=== PATIENT | female | born 1955 | race Caucasian/White ===

== ENCOUNTER → 2023-07-28 11:51 | Outpatient (REF) | payer OTHER, SELFPAY | LOC: WOUND 11:51 | PROVIDERS: ATTENDING PHYSICIAN Surgery | DX: L89.153 Pressure ulcer of sacral region, stage 3 (principal); I10 Essential (primary) hypertension; Z79.01 Long term (current) use of anticoagulants; I26.99 Other pulmonary embolism without acute cor pulmonale | CPT/HCPCS: 99204 ==

== ENCOUNTER → 2023-07-28 13:28 | Outpatient (REF) | payer OTHER, SELFPAY | LOC: RAD 13:28 | PROVIDERS: ATTENDING PHYSICIAN Surgery; FAMILY PHYSICIAN Family Medicine | DX: L89.153 Pressure ulcer of sacral region, stage 3 (principal) | CPT/HCPCS: 72190 ==

== ENCOUNTER 2023-08-01 01:33 | Inpatient (IN) | payer OTHER, SELFPAY ==
[2023-07-31 20:08] VITALS: BP 118/60
[2023-07-31 21:04] VITALS: BMI 15.3
--- NOTE | 2023-07-31 21:04 | ED.GENMED ---
History of Present Illness
General
Chief Complaint: Urinary Symptoms
Source: spouse
Exam Limitations: clinical condition
Time Seen by Provider: 07/31/23 20:56
Travel History
Have you had any contact with someone who has COVID-19?: No
Do you have any symptoms of coronavirus? Fever > 100 degrees, chills, cough, shortness of breath, sore throat, loss of taste or smell, muscle aches, or headache?: No
History of Present Illness
History of Present Illness:
See MDM
Past History
Past History
ED Past Medical History: CVA and Seizures
ED Past Surgical History: None
Social History
Tobacco: Non-smoker
Alcohol: None
Phy Exam
Physical Exam
Physical Exam:
See MDM
Course
Orders/Labs/Results
Orders:
Orders
07/31/23 21:03
0.9% Sodium Chloride 1000 ml [Nss] 1,000 ml IV BOLUS
Acetaminophen [Tylenol] 1,000 mg PO NOW STA
Cefepime HCl [Maxipime] 1,000 mg IV NOW STA
07/31/23 21:15
Sterile Water [Sterile Water For Injection] 10 ml .ROUTE .[facility]
07/31/23 21:21
Urinalysis Reflex To Culture Urgent
Date Specimen was Collected: 07/31/23
Time Specimen was Collected: 21:12
Urine Microscopic Reflex Cult Urgent
Urine Culture Urgent
ASH Source: U
Specimen Description:
Date Specimen was Collected: 07/31/23
Time Specimen was Collected: 21:12
07/31/23 21:33
Complete Blood Count/With Diff Urgent
Comprehensive Metabolic Panel Urgent
Lactic Acid Q4H
Comment: CANCEL 2nd LACTIC ACID IF 1st LACTIC ACID IS LESS THAN 2
Blood Culture Q30M
ASH Source: Blood/Venous
Specimen Description:
07/31/23 21:42
Blood Culture Q30M
ASH Source: Blood/Venous
Specimen Description:
07/31/23 21:53
CT Abd/pelvis W Iv Cont Urgent
Comment:
Reason For Exam: uti, abd pain, fever
Abnormal Lab Results
07/31/23 07/31/23
21:21 21:33
WBC 14.3 H 10^3/uL
(4.8-10.8)
RBC 2.65 L 10^6/uL
(4.20-5.40)
Hgb 7.5 L g/dL
(12.0-16.0)
Hct 21.9 L %
(37.0-47.0)
RDW 16.6 H %
(11.5-14.5)
Plt Count 496 H 10^3/uL
(130-400)
Abs Immat Gran (auto) 0.1 H 10^3/uL
(0-0.05)
Absolute Neuts (auto) 11.3 H 10^3/uL
(1.4-6.5)
Absolute Monos (auto) 0.9 H 10^3/uL
(0.1-0.6)
Neutrophils % 79.0 H %
(42.2-75.2)
Lymphocytes % 13.1 L %
(20.5-51.1)
Potassium 3.2 L mmol/L
(3.5-5.1)
Creatinine 0.4 L mg/dL
(0.6-1.0)
Calcium 7.9 L mg/dl
(8.4-10.2)
Total Protein 5.2 L g/dl
(6.3-8.2)
Albumin 2.1 L g/dl
(3.5-5.0)
Urine Ketones Trace A
(Negative)
Ur Occult Blood Reflex 4+ A
(Negative)
Urine Nitrite (Reflex) Positive A
(Negative)
Leukocyte Esterase Rfl 2+ A
(Negative)
Urine WBC (Reflex) >100 A /HPF
(0-5)
Urine Albumin (Reflex) 2+ A
(Neg - Trace)
07/31/23 21:33
07/31/23 21:33
Vital Signs
Initial and Last Documented VS:
Initial Vital Signs
Temp Pulse Resp BP Pulse Ox
98.1 F 86 24 118/60 100
07/31/23 20:08 07/31/23 20:08 07/31/23 20:08 07/31/23 20:08 07/31/23 20:08
Last Documented Vital Signs
Temp Pulse Resp BP Pulse Ox
98.1 F 72 16 135/85 100
07/31/23 20:08 08/01/23 00:08 08/01/23 00:08 08/01/23 00:08 07/31/23 20:08
MDM/Problems Addressed
Differential Diagnosis Includes:
HPI and MDM Narrative:
67-year-old female presenting with for evaluation of urinary retention and fevers. Patient had a stroke several months ago. Since then, she has been incontinent with bowel and bladder. She developed a fever and urinary retention and
urinary tract infection weeks ago requiring admission to an outpatient hospital. Patient was apparently septic at the time. They brought Gabriel catheter supplies in case she developed urinary retention again. noted that her abdomen was
distended and she was having decreased urinary output. The daughter is a registered nurse and she placed a Gabriel catheter and there was significant amount of purulent urine that was removed.
Given her history, will start IV antibiotics and ultimately admit with concern for sepsis from urinary source
Physical exam
General: Weak and frail
HEENT: protecting airway
Neck: appears supple
CV: No evidence of cyanosis
Resp: No accessory muscle use
Abd: Non-distended and nontender
Extremities: No deformities
Neuro: alert. Contractures
Psych: Flat affect
Skin: Warm
Problems Addressed including Acute and Chronic Conditions affecting care:
1. Urinary tract infection
Acuity: acute
Prognosis: unstable
Details: Significant amount of pyuria noted. Will start cefepime. Will start IV fluids and give Tylenol
Updates
CT consistent with bilateral pyelonephritis. No other acute intra-abdominal pathology noted.
Differential Diagnosis (but not limited to): Urosepsis, pyonephritis
Testing considered: CT abdomen/pelvis
Drug therapy (if applicable): OTC meds, please see d/c instruction regarding Rx drugs
Amount and/or Complexity of Data Reviewed
Clinical info obtained from:
External data reviewed: N/A
Labs I independently reviewed (but not limited to): Leukocytosis
Radiology: The CT scan was personally and independently reviewed. In addition, official CT report reviewed.
Pulse Ox: not hypoxic
EKG independently reviewed: N/A
Carpenter Packing: N/A
Critical Care: N/A
Risk of Complication:
Social Determinants of health: Good social support
Discussed with other providers: Hospitalist
Escalation of Care includes Admit/Obs: Given fever and bilateral pyelonephritis, will admit for IV antibiotics
Occasional wrong word or 'sound a like' substitutions may have occurred due to the inherent limitations of voice recognition software. Read the chart carefully and recognize, using context, where substitutions have occurred.
*Critical Care Note
Total Time (30-74mins, 75-104mins- exclusive of procedures): Not Applicable
ED Attending Note
-
Portions of this chart may have been created with voice recognition software.� Occasional wrong word or��sound alike� substitutions may have occurred due to the inherent limitations of voice recognition software.
Discharge Plan
Departure
Patient Disposition: Admit
Date of Disposition: 08/01/23
Time of Disposition: 00:45
Admit to: Med/Surg
Presentation/result/management discussed w/ accepting MD/DO: Hospitalist
Discharge Problem:
Acute pyelonephritis
Prescriptions:
No Action
multivitamin Tablet
1 tab PO DAILY
fluoxetine 40 mg Capsule
40 mg PO DAILY
atorvastatin 80 mg Tablet
80 mg PO DAILY
amlodipine 5 mg Tablet
5 mg PO DAILY
hydroxychloroquine 200 mg Tablet
200 mg PO BID
levetiracetam [Keppra] 100 mg/mL Solution
500 mg PO BID
mirtazapine 7.5 mg Tablet
7.5 mg PO HS
Eliquis 5 mg Tablet
5 mg PO BID
aspirin 81 mg Capsule
81 mg PO DAILY
Referrals:
Gerri Stovall PA-C [Family Provider] -
Interventions
Interventions:
*Risk Screen - Suicide Last Done: 07/31/23 21:04
*General Assessment Last Done: 07/31/23 21:04
*Neglect/Abuse Screening Last Done: 07/31/23 21:04
ED- Fall Risk Assessment Last Done: 07/31/23 22:18
*ED COVID-19 Vaccine History Last Done: 07/31/23 21:04
ED-Female Genitourinary Assessment Last Done: 07/31/23 21:07
ED- Neurological Assessment Last Done: 07/31/23 21:07
ED-Skin Assessment Last Done: 07/31/23 22:17
Discharge Date and Time
Print Language: [place]
--- NOTE | 2023-07-31 21:07 | EDRN ---
says pt had a parker removed about 2 weeks ago while in a SNF. Pt is usually incontinent of bowel and bladder. Pt had a loose BM this morning. noticed pt's appetite was gone yesterday and she had rigidity in her stomach and it was
sore when he palpated it. ordered a parker catheter online and his daughter who is an ED nurse, inserted it today. 1L urine described 'like chocolate milk with a horrific odor.' Pt had a fever of 102.9 at 1400 and was given tylenol which
normalized pt's temp. Two hours ago pt's shirt was soaked so he knew pt's fever broke. woke her and asked if she wanted to go to the doctor and she said yes. Pt has decreased loc per and was seen recently in [facility] wound care center
for sacral wound. gave pt her nighttime medications in ED room. Pt unable to provided any HPI.
[2023-07-31] MEDS: TYLENOL 1000 MG PO (21:17)
[2023-07-31 21:40] LABS: % Basophils 0.4 % (0-2); % Eosinophils 0.5 % (0-6); % Immature Granulocytes 0.4 % (0-0.5); % Lymphocytes 13.1 % (20.5-51.1); % Monocytes 6.6 % (1.7-9.3); Absolute Basophils 0.1 10^3/uL (0-0.2); Absolute Eosinophils 0.1 10^3/uL (0-0.7); Absolute Immature Granulocytes 0.1 10^3/uL (0-0.05); Absolute Lymphocytes 1.9 10^3/uL (1.2-3.4); Absolute Monocytes 0.9 10^3/uL (0.1-0.6); Absolute Neutrophils 11.3 10^3/uL (1.4-6.5); Hematocrit 21.9 % (37.0-47.0); Hemoglobin 7.5 g/dL (12.0-16.0); Mean Corp Hgb Conc. 34.2 g/dL (33.0-37.0); Mean Corpuscular Hgb 28.3 pg (27.0-31.0); Mean Corpuscular Volume 82.6 fL (81.0-99.0); Mean Platelet Volume 8.5 fL (7.4-10.4); Nucleated Red Blood Cells % 0 %; Platelet Count 496 10^3/uL (130-400); Red Blood Cell Count 2.65 10^6/uL (4.20-5.40); Red Cell Dist. Width 16.6 % (11.5-14.5); White Blood Cell Count 14.3 10^3/uL (4.8-10.8)
[2023-07-31 21:41] LABS: Urine Albumin 2+ (Neg - Trace); Urine Bilirubin Negative (Negative); Urine Character Very Cloudy (Clear); Urine Color Yellow; Urine Glucose Negative (Negative); Urine Ketone Trace (Negative); Urine Leukocyte 2+ (Negative); Urine Nitrite Positive (Negative); Urine Occult Blood 4+ (Negative); Urine Specific Gravity 1.015 (<1.030); Urine Urobilinogen Negative (Neg - 1+)
[2023-07-31 21:44] VITALS: BP 112/63
[2023-07-31] MEDS: NSS 1000 IV (21:44)
[2023-07-31] MEDS: MAXIPIME 1000 MG IV (21:49)
[2023-07-31 21:50] LABS: Lactic Acid 0.7 mmol/L (0.7-2.0)
[2023-07-31 21:53] LABS: Urine White Cell >100 /HPF (0-5)
[2023-07-31 21:59] LABS: ALT (SGPT) 19 U/L (0-35); AST (SGOT) 22 U/L (14-36); Albumin 2.1 g/dl (3.5-5.0); Alkaline Phosphatase 92 U/L (38-126); Blood Urea Nitrogen 16 mg/dl (7-17); Calcium 7.9 mg/dl (8.4-10.2); Carbon Dioxide 26 mmol/L (22-30); Chloride 107 mmol/L (98-107); Estimated Creatinine Clearance 56 ml/min; Glucose 96 mg/dl (70-99); Potassium 3.2 mmol/L (3.5-5.1); Sodium 136 mmol/L (135-145); Total Bilirubin 0.6 mg/dl (0.2-1.3); Total Protein 5.2 g/dl (6.3-8.2); eGFR > 60.00
--- NOTE | 2023-07-31 22:22 | EDRN ---
concerned pt had a BM - no BM, ramirez foul drainage on stretcher contour sheet from decubitus. Dressing soaked through - removed and applied new new dressing. Diaper placed, linens changed. Pt requested to be positioned on R side. Air
pillow under pt's buttocks, pt on R side with pillow placed between her lower legs/knees. Pt says she is comfortable.
[2023-07-31 23:06] VITALS: BP 110/55
[2023-08-01] VITALS (8 sets, daily range): BP systolic 109–142; BP diastolic 57–89; BMI 16.0
--- NOTE | 2023-08-01 01:09 | HPS.HSE ---
Family Physician
-
Family Physician: Gerri Stovall
Chief Complaint
-
difficult urination and hi grade fever
History of Present Illness
I could not get any information from the patient as she is lethargic
Information gathered by chart review and speaking with and the ER staff.
HPI
67F HX recent CVA, WC bound, able to swallow POs and Sz , recent admission to [facility] for urosepsis.
Since she has difficult urination. 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
T max 103 at home.
Tx is 98.1 at ER
hemodynamically stable
UA is significantly abnormal c/w UTI
Medical History
Past Medical History
Past Medical History: Reports CVA, HTN, Hypercholesterolemia and Other (seizure )
Past Surgical History: Reports None
Social History
Tobacco: Non-smoker
Alcohol: None
Family History
Family History: Not pertinent
Allergies / Home Medications
Allergies reflects when Allergies were last updated in [employer].
Home Medications with original date entered in [employer]
Allergy/Medication List:
Allergies
Allergy/AdvReac Type Severity Reaction Status Date / Time
No Known Allergies Allergy Verified 07/31/23 20:11
Home Medications
amlodipine 5 mg tablet 5 mg PO DAILY 07/31/23
apixaban 5 mg tablet (Eliquis) 5 mg PO BID 07/31/23
aspirin 81 mg capsule 81 mg PO DAILY 07/31/23
atorvastatin 80 mg tablet 80 mg PO DAILY 07/31/23
fluoxetine 40 mg capsule 40 mg PO DAILY 07/31/23
hydroxychloroquine 200 mg tablet 200 mg PO BID 07/31/23
levetiracetam 100 mg/mL oral solution (Keppra) 500 mg PO BID 07/31/23
mirtazapine 7.5 mg tablet 7.5 mg PO HS 07/31/23
multivitamin 1 tab PO DAILY 07/31/23
Review of Systems
-
Constitutional: Reports Fever
EENT: Reports No Symptoms
Respiratory: Reports No Symptoms
Cardiac: Reports No Symptoms
Abdomen/GI: Reports No Symptoms
: Reports Dysuria, Incontinence and Difficulty Voiding
Musculoskeletal: Reports No Symptoms
Skin: Reports No Symptoms
Neurological: Reports No Symptoms
Endocrine: Reports No Symptoms
Hematologic/Lymphatic: Reports No Symptoms
Psych: Reports No Symptoms
Physical Exam
Vital Signs
Vital Signs
Temp Pulse Resp BP Pulse Ox
98.1 F 76 14 134/74 100
07/31/23 20:08 08/01/23 01:00 08/01/23 01:00 08/01/23 01:00 07/31/23 20:08
Physical Exam
General: Appears Chronically Ill and Other (thin frail very lethargic )
HEENT: NormoCephalic
Respiratory: Clear
Cardiac: S1/S2 and Regular Rhythm
Breast: Deferred by me
GI: Soft, Non Tender and Non Distended
Genito-urinary: Deferred by me
Musculoskeletal: No Edema
Skin: Warm and Dry
Neuro: Other (very lethargic ); No Alert (letahrgic )
Laboratory Results
-
07/31/23 21:33
07/31/23 21:33
Laboratory Results
Lactic Acid 0.7 mmol/L (0.7-2.0) 07/31/23 21:33
Total Bilirubin 0.6 mg/dl (0.2-1.3) 07/31/23 21:33
AST 22 U/L (14-36) 07/31/23 21:33
ALT 19 U/L (0-35) 07/31/23 21:33
Alkaline Phosphatase 92 U/L (38-126) 07/31/23 21:33
Data Reviewed
-
CT Scan: Other (pending )
Lab Data: Labs Reviewed by me
Impression/Plan
-
Reviewed VS: afebrile and unremarkable
Data
WCC 14.3
Hgb 7.5 - no prior lab data Nl MCV
Plt 496
K 3.2
nl Cr
nl eGFR
nl LFts
Alb 2.1
UA: cloudy, POS Nitrites, POS 2+ LE , WCC> 100
UCX sent
BCx sent
CT AP pending
Last hospitalist admission:
ASSESSMENT & PLAN
Persistent UTI concerning for Pyelonephritis
Asso. sepsis ( T 103, WCC >10)
Asso. hypoactive TME due to sepsis
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
- UCx , BCx
- IV CFP
- LR IVF
- Tylenol PRN
- NPO or aspiration precaution
- ST to eval for POs
- ID consult
Hypokalemia
- IV KCL Law 40 x1
- f/u K in [facility]
Currently normotensive
Essential HTN
- held Amlodipine
Recent CVA a couple of months ago
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
Cognitive disorder since stoke - waxing and waning memory
As per she is able to eat regular food
HLD
- cont ASA and Eliquis
- cont. Atorvastatin
HX Sz
- cont. Keppra
Depression
- cont Mirtazapine
DVT Px: chr Eliquis
Code: DNR per at bed side
IP TLM
--- NOTE | 2023-08-01 01:13 | EDRN ---
Called pharmacy for 40meq KCL IV
[2023-08-01] MEDS: KCL 270 MEQ IV (01:36)
[2023-08-01] MEDS: LR 1000 IV ×2 (03:18→17:34)
[2023-08-01] MEDS: MAXIPIME 1000 MG IV (05:43)
[2023-08-01] MEDS: STERILE WATER FOR INJECTION 10 ML IV (05:43)
[2023-08-01 09:04] LABS: % Basophils 0.3 % (0-2); % Eosinophils 0.1 % (0-6); % Immature Granulocytes 0.4 % (0-0.5); % Lymphocytes 7.4 % (20.5-51.1); % Monocytes 4.5 % (1.7-9.3); % Neutrophils 87.3 % (42.2-75.2); Absolute Basophils 0.1 10^3/uL (0-0.2); Absolute Immature Granulocytes 0.1 10^3/uL (0-0.05); Absolute Lymphocytes 1.3 10^3/uL (1.2-3.4); Absolute Monocytes 0.8 10^3/uL (0.1-0.6); Absolute Neutrophils 14.9 10^3/uL (1.4-6.5); Hematocrit 23.3 % (37.0-47.0); Hemoglobin 7.9 g/dL (12.0-16.0); Mean Corp Hgb Conc. 33.9 g/dL (33.0-37.0); Mean Corpuscular Hgb 28.5 pg (27.0-31.0); Mean Corpuscular Volume 84.1 fL (81.0-99.0); Mean Platelet Volume 9.5 fL (7.4-10.4); Nucleated Red Blood Cells % 0 %; Platelet Count 492 10^3/uL (130-400); Red Blood Cell Count 2.77 10^6/uL (4.20-5.40); Red Cell Dist. Width 16.6 % (11.5-14.5); White Blood Cell Count 17.1 10^3/uL (4.8-10.8)
[2023-08-01] MEDS: LIPITOR 80 MG PO (09:08)
[2023-08-01] MEDS: KEPPRA 500 MG PO ×2 (09:08→20:37)
[2023-08-01] MEDS: ELIQUIS 5 MG PO (09:08)
[2023-08-01] MEDS: ASPIR LOW (ENTERIC COATED) 81 MG PO (09:08)
[2023-08-01] MEDS: PLAQUENIL 200 MG PO ×2 (09:08→20:36)
[2023-08-01 09:40] LABS: ALT (SGPT) 18 U/L (0-35); AST (SGOT) 23 U/L (14-36); Alkaline Phosphatase 100 U/L (38-126); Blood Urea Nitrogen 12 mg/dl (7-17); Carbon Dioxide 23 mmol/L (22-30); Chloride 110 mmol/L (98-107); Estimated Creatinine Clearance 59 ml/min; Glucose 68 mg/dl (70-99); Potassium 3.9 mmol/L (3.5-5.1); Sodium 138 mmol/L (135-145); Total Bilirubin 0.6 mg/dl (0.2-1.3); eGFR > 60.00
--- NOTE | 2023-08-01 11:43 | PTOTSP ---
Dysphagia Evaluation
Patient presents with signs concerning for mild oral/pharyngeal dysphagia and has acute on chronic risk factors (i.e., UTI with TME; recent CVAs with cognitive impairment). No overt s/s of aspiration or clinical signs of aspiration complications
noted.
Recommend:
1. IDDSI Level 6 Soft/Bite Sized, IDDSI Level 0 Thin Liquids
2. Full supervision, assist as needed
3. Strategies: upright to 90 degrees, small single sips/bites, slow rate, ensure patient swallows before next bite, check for pocketing, liquid wash as needed, suctioning after meals to clear any oral residue
4. Medications as best tolerated
5. Oral care 3x daily with suctioning
6. Dysphagia tx at the acute care level. Will determine if/when diet advancement appropriate. Cognitive evaluation/therapy not appropriate at this time given acute UTI.
--- NOTE | 2023-08-01 11:51 | CM ---
PATIENT'S NAME IS NICOLE. VICENTE IS MAIDEN NAME. 's insurance placed coverage under her maiden name.
Initial assessment completed with patient and who live in a 3 story town-home with a basement, 1 small step to enter. Patient sleeps in a hospital bed on the 1st floor and sleeps on the couch near her. Patient has a hospital bed,
W/CH, SPC, commode. She also is on service with [facility] for VN, PT/OT services. Patient requires assistance for all ADL's. She has recently started trying to feed herself with adaptive utensils. She does have a sacral wound and follows with the
wound care clinic. No psychiatric hospitalizations. Pharmacy is [facility] in [place] and PA is Gerri WALKER. Discharge Plan of Care: TBD, SNF vs Home with resumption of HH.
DAUGHTER, AIXA RIVERA, IS AN RN AND PRIMARY CONTACT.
--- NOTE | 2023-08-01 11:59 | CON.ID ---
Consultation
-
Date/Time Consultation Requested: 08/01/2023 02:35
Date/Time Consultation Performed: 08/01/2023 1145
Requesting Provider: Dr. Roque
Performing Provider: Dr. Garza
Reason for Consultation: Suspected complicated urinary tract infection
Chief Complaint / Past History
History of Present Illness
Ashley Bundy is a 67-year-old female being evaluated at the request of Dr. Avery in regards to a complicated urinary tract infection. History is obtained from chart review, along with patient interview. Additional history is obtained from the
patient's who was at the bedside.
Patient has a significant past medical history of multiple CVAs in November 2022. She has been bedbound since. In the interval time she has had multiple urinary tract infections with the most recent 1 requiring a 10-day inpatient stay at [facility]. Thereafter, she was sent to a rehab facility, and then to home. Over the past several months she has been dealing with sacral decubitus ulcer.
Approximately 2 days ago, her reports that she began to feel ill and there was some difficulty passing urine. Her daughter who is a nurse reportedly performed catheterization with recovery of 'purulent' urine. Because of this, she was
brought to the hospital for further evaluation and care. She has recently been seen in the [facility].
Past History
Additional Past Medical History:
Hx CVA
Seizure disorder
Functional paraplegia
Sacral decubitus
Past Surgical History: None
Allergy History:
No Known Allergies Allergy (Verified 07/31/23 20:11)
Medications Reviewed: Yes
Current Antibiotics:
Cefepime 1 g IV every 8 hours
Social History
Tobacco: Non-Smoker
Alcohol: None
Drug: None
Personal:
Living: With Family
Employment: Not Employed
Family History
Family History: Not Pertinent
Review of Systems
Vital Signs
Temp Pulse Resp BP Pulse Ox
98.4 F 81 16 132/88 98
08/01/23 07:05 08/01/23 07:05 08/01/23 07:05 08/01/23 07:05 08/01/23 07:05
Physical Exam
Physical Exam
Constitutional: Comfortable, Acutely Ill, Chronically Ill and Cachetic
Eyes: Pupils Equal, Pupils Round, No Conjunctival Hemorrhage and Sclera Anicteric
Oral: No Thrush and No Ulcers
Cardiovascular: Regular Rate and S1/S2; Negative S3/S4
Pulmonary: Clear; Negative Wheezes, Rales or Rhonchi
Gastrointestinal: Soft, Non Tender, Non Distended, Normal Bowel Sounds, No Rebound and No Guarding
Genito-Urinary: Gabriel and Clear Urine; Negative Hematuria
Extremities: Negative Edema, Cyanosis or Erythema
Musculoskeletal: Negative Joint Swelling or Joint Effusion
Wound: Other (Stage III-IV sacral decubitus with marked malodor)
Neurological: Awake and Alert
Psychological: Calm
Lab / Diagnostic Study Results
08/01/23 08:20
08/01/23 08:20
Abs Immat Gran (auto) 0.1 10^3/uL (0-0.05) H 08/01/23 08:20
Absolute Neuts (auto) 14.9 10^3/uL (1.4-6.5) H 08/01/23 08:20
Absolute Lymphs (auto) 1.3 10^3/uL (1.2-3.4) 08/01/23 08:20
Absolute Monos (auto) 0.8 10^3/uL (0.1-0.6) H 08/01/23 08:20
Absolute Basos (auto) 0.1 10^3/uL (0-0.2) 08/01/23 08:20
Immature Gran % 0.4 % (0-0.5) 08/01/23 08:20
Neutrophils % 87.3 % (42.2-75.2) H 08/01/23 08:20
Lymphocytes % 7.4 % (20.5-51.1) L 08/01/23 08:20
Monocytes % 4.5 % (1.7-9.3) 08/01/23 08:20
Eosinophils % 0.1 % (0-6) 08/01/23 08:20
Basophils % 0.3 % (0-2) 08/01/23 08:20
Lactic Acid Cancelled 08/01/23 14:35
Microbiology Results
Micro:
07/31/23 21:42 Blood Culture - Pending
Blood/Venous
07/31/23 21:21 Urine Culture - Pending
Urine
07/31/23 21:33 Blood Culture - Pending
Blood/Venous
Imaging:
CT abdomen/pelvis with IV contrast: Findings are suspicious for bilateral pyelonephritis. The bladder is decompressed with a Gabriel catheter, but appears thickened suggesting cystitis. Diffuse anasarca with sacral decubitus ulcer which
abuts the inferior sacrum. No gross evidence for osteomyelitis. There is degenerative changes of both hips with sclerosis of both femoral heads which may represent degenerative changes with avascular necrosis also in the differential. Please see
full dictation for additional detail.
Assessment / Plan
Complicated urinary tract infection
Urinary retention
Suspected bilateral pyelonephritis
Leukocytosis
Stage III�4 sacral ulceration.
Hx CVA
Seizure disorder
Functional paraplegia
Recommendations:
Change cefepime to Zosyn (to provide anaerobic coverage of the sacral decubitus.)
Urine culture and blood cultures are currently pending.
Monitor white count and temperature curve.
Local care to the sacral wound. Will order Dakin's packing
[2023-08-01] MEDS: STERILE WATER FOR INJECTION IV (12:49)
--- NOTE | 2023-08-01 13:58 | W.PN.UPDATE ---
Update Note
Progress Note Update
Nonbillable note
Chart/lab/images reviewed
Patient seen and examined briefly. Spouse at bedside.
Multiple nephritis, history of recurrent urinary tract infection -discussed with daughter who denies of patient having any previous history of MDR UTI. No history of urinary procedures in the past. Patient currently on empiric Zosyn. UA showing
significant pyuria and bacteriuria
Decubitus ulcer on right posterior iliac spine -Per daughter has been stage III although on exam today with wound care at bedside stage IV with black necrotic tissue on the base and surrounding skin, general surgery consulted for evaluation for
possible debridement.
History of recurrent CVA, dysphagia -patient wheelchair-bound at this point. Clear speech therapy evaluation and started on IDDSI 6 diet.
[2023-08-01] MEDS: DAKIN'S SOLUTION 0.125% 1/4 STRENGTH 473 ML TOPICAL ×2 (14:00→20:40)
--- NOTE | 2023-08-01 14:08 | WOUNDNOTE ---
SACRUM (with photo flash)
--- NOTE | 2023-08-01 14:10 | WOUNDNOTE ---
[facility] RN note: Patient admitted with sepsis, UTI, acute urinary retention. Patient was at [facility] then rehab then home. She is taken care of by her and daughter (who is a nurse). She is current with VN. Patient has a hospital bed with air
mattress and a chair air cushion.
See H&P for complete history.
PMH: CVA, bedbound/wheelchair bound, urosepsis, HTN, seizure, functional paraplegia.
Wound Location and type/assessment: Patient admitted with: Stage 4 sacral pressure injury black necrotic slough with erythema. Suspect will be to bone. CT scan of pelvic did not reveal OM. R heel stage 3 pressure injury. L lateral knee and L
lateral ankle with healing stage 2 pressure injuries. R medial ankle small stage 1 pressure injury. L elbow small mild red mervat.
Appetite: On a IDDSI6 soft and bite size diet. Appetite has recently declined as per . NELSON Jarvis plans to consult digital marketing lead.
Pressure redistribution devices in place: Versacare air bed.
Plan: Patient incontinent of medium dark brown soft loose stool. Tamra care given. Sacral dressing applied using Dakin's solution as ordered. R heel, LLE foam dressings changed. Foam dressing applied to R medial ankle and L elbow.
Discussed and confirmed orders with Dr. Escoto who requested a sacral wound culture. Dr. Escoto plans to order surgeon consult to evaluate for sacral wound debridement. Wound culture taken and left in room (discussed with NELSON Jarvis). ID following.
Patient turned to R side with help from NELSON Jarvis. Pillow between legs, air chair cushion off loading heels. Discussed with NELSON Jarvis who will also apply Foot Waffle boots. t/c SPD and ordered Foot Waffle boots. Patient is at risk for worsening of
or additional pressure injuries despite prevention measures in place d/t patient very thin, immobile with overall poor nutrition.
Care plan to be updated and will follow as needed.
--- NOTE | 2023-08-01 14:11 | WOUNDNOTE ---
[facility] RN note: Patient admitted with sepsis, UTI, acute urinary retention. Patient was at [facility] then rehab then home. She is taken care of by her and daughter (who is a nurse). She is current with VN. Patient has a hospital bed with air
mattress and a chair air cushion.
See H&P for complete history.
PMH: CVA, bedbound/wheelchair bound, urosepsis, HTN, seizure, functional paraplegia.
Wound Location and type/assessment: Patient admitted with: black necrotic slough stage 4 sacral pressure injury with erythema. Suspect will be to bone. CT scan of pelvic did not reveal OM. R heel stage 3 pressure injury. L lateral knee and L
lateral ankle with healing stage 2 pressure injuries.
Appetite: On a IDDSI6 soft and bite size diet. Appetite has recently declined as per . NELSON Jarvis plans to consult reagent tender helper.
Pressure redistribution devices in place: Versacare air bed.
Plan: Patient incontinent of medium dark brown soft loose stool. Tamra care given. Sacral dressing applied using Dakin's solution as ordered.
Will confirm orders with hospitalist and update nurse.
Updated care plan and will follow as needed.
Note to case management of equipment requested for discharge:
Recommend follow up at wound care center upon discharge.
[2023-08-01] MEDS: ZOSYN 50 IV ×2 (14:58→20:37)
--- NOTE | 2023-08-01 16:48 | CON.GS ---
Addendum entered and electronically signed by Brian Kelly MD 08/01/23 17:49:
I saw and examined the patient independently.
The Fire Patroller's note was reviewed and I agree with the note, assessment and plan except where noted below.
Comment: This is a 67-year-old female with a history of PE on Eliquis, mom 2 recent strokes with functional paraplegia who presents for evaluation of urinary symptoms found to have acute pyelonephritis. General surgery was consulted for evaluation
of a sacral wound that she developed at nursing facility about a month ago. On exam she has a asymmetric 4 x 2 cm necrotic wound over the coccyx with some surrounding erythema but no purulent discharge. The wound was gently probed to a depth of
roughly 2 cm, my exam and did not appear that this involved the bone. The wound is being managed by our wound care team here as an outpatient under the care of Dr. Martinez. He is using Dakin's wet-to-dry. Of note her last dose of Eliquis was
this morning.
Will plan for operative debridement once her Eliquis has washed out. Currently on the schedule with Dr. Estrada for tomorrow.
Okay for diet for now, n.p.o. at midnight.
Antibiotics per primary.
Risks/Benefits/Alternatives, expected postoperative course and possible complications (bleeding, infection, injury to surrounding structures, acute/chronic pain) discussed at length. Patient wishes to proceed with surgery. All questions answered.
Consent not obtained.
I spent roughly 50 minutes in total for the care of this patient today including direct patient care and counseling, reviewing labs, imaging, coordination of care, as well as documentation.
Original Note:
Consultation
-
Requesting Provider: Jevon
Reason for Consultation: decub ulcer debridement
Medical History
-
Chief Complaint: wound
History of Present Illness:
Ms Bundy is a 67 yo female with a h/o PE on Eliquis who suffered 2 CVA's last fall with 2 admissions at [facility] and resulting functional paraplegia and dysphagia seen today in consult for evaluation of a chronic wound. She is sleepy and answering
simple questions with her at bedside providing the majority of the patient's history. He notes that she has had decubitus ulcers since her stroke which have been in various stages of healing and followed [facility] with
[facility]. The current ulcer has been present for about 6 weeks or so. He notes recent acute worsening over the past week with the ulcer turning black. The ulcer is sacral and covered with necrotic tissue and brown slough with purulent material
oozing out of it. She has some discomfort to the site and has been unable to sit in a chair because of it. She is incontinent of stool with parker catheter currenty in place for management of pyelonephritis.
Past Medical History
Past Medical History: CVA, HTN, Hypercholesterolemia, Seizures and Other (PE on Eliquis)
Past Surgical History: None
Social History
Tobacco: Non-Smoker
Alcohol: None
Personal:
Living: With Family
Family History
Family History: Reviewed & Not Pertinent
Allergies / Home Medications
Allergy/AdvReac Type Severity Reaction Status Date / Time
No Known Allergies Allergy Verified 07/31/23 20:11
�Medication �Instructions �Recorded �Confirmed �Type
amlodipine 5 mg tablet 5 mg PO DAILY Blood Pressure 07/31/23 07/31/23 History
apixaban 5 mg tablet (Eliquis) 5 mg PO BID Blood Clot 07/31/23 07/31/23 History
Prevention/Tx
aspirin 81 mg capsule 81 mg PO DAILY Blood Clot 07/31/23 07/31/23 History
Prevention/Tx
atorvastatin 80 mg tablet 80 mg PO DAILY High Cholesterol 07/31/23 07/31/23 History
fluoxetine 40 mg capsule 40 mg PO DAILY Mental 07/31/23 07/31/23 History
Health/Anxiety
hydroxychloroquine 200 mg tablet 200 mg PO BID 07/31/23 07/31/23 History
levetiracetam 100 mg/mL oral 500 mg PO BID Neurological 07/31/23 07/31/23 History
solution (Keppra) Condition
mirtazapine 7.5 mg tablet 7.5 mg PO HS Mental Health/Anxiety 07/31/23 07/31/23 History
multivitamin 1 tab PO DAILY Supplement 07/31/23 07/31/23 History
Review of Systems
-
History Source: Patient and Family
All other systems: Negative unless noted
A 10 point review of systems was completed, and was negative except as per HPI.
Physical Exam
Vital Signs
Temp Pulse Resp BP Pulse Ox
99.2 F 87 16 128/73 97
08/01/23 11:00 08/01/23 11:00 08/01/23 11:00 08/01/23 11:00 08/01/23 11:00
07/31/23 08/01/23 08/02/23
06:59 06:59 06:59
Actual Weight 39.735 kg
Body Mass Index (BMI) 16.0
Lab Results
08/01/23 08:20
08/01/23 08:20
WBC 17.1 10^3/uL (4.8-10.8) H 08/01/23 08:20
Hgb 7.9 g/dL (12.0-16.0) L 08/01/23 08:20
Hct 23.3 % (37.0-47.0) L 08/01/23 08:20
Plt Count 492 10^3/uL (130-400) H 08/01/23 08:20
Abs Immat Gran (auto) 0.1 10^3/uL (0-0.05) H 08/01/23 08:20
Neutrophils % 87.3 % (42.2-75.2) H 08/01/23 08:20
Physical Exam
General: No Apparent Distress
HEENT: Normocephalic
Respiratory: Non Labored Respirations
GI: Soft and Non Tender
Skin: Warm, Dry and Other (see wound note for other wound. There is an unstagable pressure ulcer to the sacrum with overlying necrotic tissue. Purulent ramirez drainage from wound. )
Neuro: Awake and Alert
Psych: Calm
Data Reviewed
-
CT Scan: Image Personally Visualized and interpreted, Report Reviewed by me, Discussed with Physician, Discussed with Patient and Discussed with Family
Labs: Labs Reviewed by me, Discussed with Physician, Discussed with Patient and Discussed with Family
Old Records: Reviewed
Assessment / Plan
-
Ms Bundy is a 67 yo female with a h/o PE on Eliquis who suffered 2 CVA's last fall with 2 admissions at [facility] and resulting functional paraplegia and dysphagia presenting with pyelonephritis seen today in consult for evaluation of a sacral
pressure ulcer for which she has been following at the wound center with Dr. Martinez. Her notes recent worsening of the wound and it turning black. Necrotic tissue overlying the site with purulent discharge noted. CT imaging noted with
diffuse edema at the site abutting the inferior sacrum without osteomyelitis present. Stool incontinence noted on exam. Leukocytosis present and trending up.
--Hold Eliquis for tentative debridement in the OR tomorrow
--NPO after MN for tentative OR
--ABX as per primary team
--Send Wound culture
--Continue local care with wound packing with 1/4 strength dakins
[2023-08-01] MEDS: REMERON 7.5 MG PO (20:39)
[2023-08-02] VITALS (14 sets, daily range): BP systolic 86–140; BP diastolic 43–79; BMI 15.5
[2023-08-02] MEDS: ZOSYN 50 IV ×4 (02:42→20:46)
[2023-08-02] MEDS: LR 1000 IV (05:31)
[2023-08-02 07:52] LABS: Blood Urea Nitrogen 8 mg/dl (7-17); Calcium 7.9 mg/dl (8.4-10.2); Carbon Dioxide 21 mmol/L (22-30); Chloride 110 mmol/L (98-107); Estimated Creatinine Clearance 57 ml/min; Glucose 78 mg/dl (70-99); Potassium 3.3 mmol/L (3.5-5.1); Sodium 137 mmol/L (135-145); eGFR > 60.00
[2023-08-02 07:55] LABS: Hematocrit 23.6 % (37.0-47.0); Mean Corp Hgb Conc. 33.9 g/dL (33.0-37.0); Mean Corpuscular Hgb 28.4 pg (27.0-31.0); Mean Corpuscular Volume 83.7 fL (81.0-99.0); Platelet Count 487 10^3/uL (130-400); Red Blood Cell Count 2.82 10^6/uL (4.20-5.40); Red Cell Dist. Width 16.6 % (11.5-14.5); White Blood Cell Count 15.5 10^3/uL (4.8-10.8)
--- NOTE | 2023-08-02 08:01 | W.PN.GS2 ---
Today's Communication / Plan
-
-- Incision and debridement of decubitus ulcer
-- NPO
-- Zosyn
Assessment / Plan
-
Patient is a 67 yo F p/w UTI and pyelonephritis. Found to have an unstageable (possibly III) decubitus ulcer.
Clinically stable. Repeat labs ordered. Discussion with patient yesterday regarding management of decubitus ulcers. Evidence of necrotic and possibly infected material necessitating debridement. Plan for operative debridement today (24 hours
post last dose of Eliquis and in the OR for improved debridement/tolerance).
Plan for incision and debridement of a decubitus ulcer. The procedure itself, as well as the risks, benefits, and alternatives was discussed. Specifically we discussed the risks of bleeding, infection (persistence need further debridement
procedures), injury to surrounding structures, and continued need for wound management and possible debridement procedures. Post-procedure recovery was discussed. All questions answered. Consent signed (patient with intact mental status and
ability to make medical decisions, unable to physically sign, 2 physician signature).
-- Incision and debridement of decubitus ulcer
-- NPO
-- Zosyn
Subjective Data
-
Date of Service: August 02, 2023
No major complaints. Denies worsening pain. Low grade fever yesterday afternoon.
Objective Data
-
Intake and Output
08/01/23 08/02/23 08/03/23
06:59 06:59 06:59
Intake Total 1000 / 1000 1220 / 1220
Output Total 700 / 700 500 / 500
Balance 300 / 300 720 / 720
Intake:
Oral fluids 240 / 240
IV fluids (Total) 1000 / 1000 880 / 880
NS 1000 / 1000
IV piggybacks 100 / 100
Output:
Urine, Gabriel 500 / 500
Urine, Voided 700 / 700
Other:
How many times incontinent 1
SATURATED amount urine
Number of unmeasured liquid
stools
Rectum 1 1
Vital Signs
Temp Pulse Resp BP Pulse Ox
99.1 F 78 18 136/79 95
08/02/23 02:57 08/02/23 02:57 08/02/23 02:57 08/02/23 02:57 08/02/23 02:57
Lab Results
08/02/23 07:27
Calcium 7.9 mg/dl (8.4-10.2) L 08/02/23 07:27
Total Bilirubin 0.6 mg/dl (0.2-1.3) 08/01/23 08:20
AST 23 U/L (14-36) 08/01/23 08:20
ALT 18 U/L (0-35) 08/01/23 08:20
Alkaline Phosphatase 100 U/L (38-126) 08/01/23 08:20
Total Protein 5.0 g/dl (6.3-8.2) L 08/01/23 08:20
Albumin 2.0 g/dl (3.5-5.0) L 08/01/23 08:20
Physical Exam
-
Gen: NAD
Rectal: asymmetric 4 x 2 x 2 cm necrotic wound over the coccyx with some surrounding erythema but no purulent discharge, tender to palpation
[2023-08-02] MEDS: ASPIR LOW (ENTERIC COATED) PO (09:02)
[2023-08-02] MEDS: DAKIN'S SOLUTION 0.125% 1/4 STRENGTH 1 ML TOPICAL (09:02)
[2023-08-02] MEDS: PLAQUENIL 200 MG PO ×2 (09:03→20:45)
[2023-08-02] MEDS: KEPPRA 500 MG PO ×2 (09:03→20:45)
[2023-08-02] MEDS: LIPITOR 80 MG PO (09:03)
--- NOTE | 2023-08-02 11:07 | W.SUR.PREOP ---
Pre-Operative Surgical Note
-
I have examined this patient prior to the performance of the scheduled procedure.
The patient's condition is unchanged from the time of the current History and
Physical and the patient is able to undergo the scheduled procedure.
--- NOTE | 2023-08-02 12:20 | W.PN.HOSP.TC ---
Addendum entered and electronically signed by Breezy Escoto MD 08/03/23 09:20:
Add to dx list:
Sepsis was present on admission
Cachectic with BMI 16.2
Addendum entered and electronically signed by Breezy Escoto MD 08/02/23 16:47:
Add to diagnosis list:
R heel stage 3 pressure injury
L lateral knee and L lateral ankle with healing stage 2 pressure injuries
R medical ankle small stage 1 pressure injury
-All present at admission, striper spray gun following
Pancreatic head intraductal mucinous neoplasm
-present on abd CT in Jun 14, no change in size.
Original Note:
Today's Communication/Plan
-
f/u urine/blood cs report
for decub debridement today
Assessment / Plan
Assessment / Plan
CT a/p
1. Findings suspicious for bilateral pyelonephritis. The bladder is decompressed with Gabriel catheter but appears thickened suggesting also a cystitis.
2. 15 x 9 mm hypodense lesion within the pancreatic head which may represent a cyst or intraductal mucinous neoplasm. No significant dilatation of the pancreatic duct.
3. Diffuse anasarca with sacral decubitus ulcer which abuts the inferior sacrum. No gross evidence for osteomyelitis.
4. Degenerative changes of both hips with sclerosis of both femoral heads which may represent degenerative change with avascular necrosis also within differential.
5. Additional findings above.

1. Pyelonephritis
Persistent UTI
-CT a/p showing bilateral pyelonephritis with possible cystitis as well
-Patient was just recently discharged from [facility] after treatment of UTI. No cultures available from from that visit
-Urine culture and blood culture report pending
-Patient currently on empiric Zosyn with suspicion of MDR organism causing symptoms
-ID following and help appreciated.
2. Stage IV decubitus ulcer
-Located on superior right posterior iliac spine area
-Pelvic x-ray did not show any bone destruction
-Wound care evaluated, the necrotic eschar on the ulcer base
-General surgery involved patient going for debridement today
3. H/o of recurrent CVA
-Patient on dysphagia diet
-Wheelchair-bound and requires assistance
Normocytic anemia
Hypokalemia - replace prn
Metabolic acidosis
Reactive thrombocytosis
Hyperlipidemia
h/o of seizure
Depression
DVT Px: chr Eliquis
Code: DNR per at bed side
Anticipated Discharge: 24 - 48 hours
Subjective/Interval History
-
Date of Service: August 02, 2023
no acute issues overnight
afebrile
Objective Data
-
Labs:
Laboratory Results
08/02/23
07:27
WBC 15.5 H
Hgb 8.0 L
Hct 23.6 L
Plt Count 487 H
Sodium 137
Potassium 3.3 L
Chloride 110 H
Carbon Dioxide 21 L
BUN 8
Creatinine 0.4 L
Glucose 78
Calcium 7.9 L
Vital Signs:
Vital Signs
Temp Pulse Resp BP Pulse Ox
98.7 F 73 18 140/64 96
08/02/23 07:05 08/02/23 07:05 08/02/23 07:05 08/02/23 07:05 08/02/23 07:05
I&O
08/01/23 08/02/23 08/03/23
06:59 06:59 06:59
Intake Total 1000 / 1000 1220 / 1220
Output Total 700 / 700 500 / 500
Balance 300 / 300 720 / 720
Review of Systems
-
Respiratory: Reports No Symptoms
Cardiac: Reports No Symptoms
Abdomen/GI: Reports No Symptoms
Physical Exam
-
General: No Apparent Distress and Comfortable
HEENT: Negative Oxygen
Respiratory: Clear to Auscultation
Cardiac: Regular Rhythm and S1/S2; Negative Murmur or Rub
GI: Soft, Nontender and Nondistended
Musculoskeletal: No Edema
Neuro: Awake, Alert, Oriented and Nonfocal/Grossly Intact
Psych: Calm
--- NOTE | 2023-08-02 12:49 | W.IMMPOSTOP ---
Addendum entered and electronically signed by Sidney Estrada MD 08/02/23 13:20:
[facility]#[id number]
Addendum entered and electronically signed by Sidney Estrada MD 08/02/23 12:54:
Plan:
-- Continue with local wound care with BID packing, outpatient follow-up in wound care center
-- Hold Eliquis for 24 hours post-operatively, resume pending ooze at dressing change (08/02)
Original Note:
Surgical Immed Post Op Note
-
Primary Surgeon: Sean
Assisting Surgeon: None
Pre-op Diagnosis: Sacral decubitus pressure ulcer
Post-op Diagnosis: Sacral decubitus pressure ulcer
Procedure Performed: Incision and debridement of sacral decubitus pressure ulcer
Anesthesia Type: General
Specimen / Cultures:
1. Wound culture
Estimated Blood Loss: 11 cc
Complications: None
Operative Findings:
1. 6 x 7 x 3 cm decubitus ulcer with necrosis and purulence
2. Wound extended down to fascial layer of coccyx (stage IV)
3. Excisional debridement performed with scissors and cautery
4. Wound packed with Betadine soaked Kerlix and covered with gauze/ABDs and tape
[2023-08-02] MEDS: ProAmatine 10 MG PO (15:06)
[2023-08-02] MEDS: NSS 500 IV (15:06)
--- NOTE | 2023-08-02 15:47 | W.PN.ID1 ---
Date of Service
Date of Service: August 02, 2023
Today's Communication
Continue antibiotics.
Assessment / Plan
Complicated urinary tract infection
Urinary retention
Suspected bilateral pyelonephritis
Leukocytosis
Stage III�4 sacral ulceration.
Hx CVA
Seizure disorder
Functional paraplegia
Recommendations:
Continue Zosyn.
Urine culture, blood cultures and tissue cultures are currently pending.
Monitor white count and temperature curve.
Local care to the sacral wound.
����������������������������������������������������������
Chief Complaint
-: UTI
Vital Signs / Physical Exam
Vital Signs
Vital Signs
Temp Pulse Resp BP Pulse Ox
99.0 F 92 16 101/55 94
08/02/23 15:25 08/02/23 15:25 08/02/23 15:25 08/02/23 15:25 08/02/23 15:25
Physical Exam
Constitutional: Comfortable, Chronically Ill and Non-toxic
Eyes: Sclera Anicteric
Cardiovascular: S1/S2; Negative S3/S4
Pulmonary: Non Labored
Gastrointestinal: Non Distended and Normal Bowel Sounds
Wound: Other ( Sacral wound dressed.)
Psychological: Calm
Objective Data
Lab Data
Lab Results
08/02/23 07:27
08/02/23 07:27
Estimated Creat Clear 57 ml/min 08/02/23 07:27
Lactic Acid Cancelled 08/01/23 14:35
Total Bilirubin 0.6 mg/dl (0.2-1.3) 08/01/23 08:20
AST 23 U/L (14-36) 08/01/23 08:20
ALT 18 U/L (0-35) 08/01/23 08:20
Alkaline Phosphatase 100 U/L (38-126) 08/01/23 08:20
Most recent labs reviewed.
Micro Results:
08/02/23 12:45 Wound Culture - Pending
Buttock Gram Stain - Preliminary
08/02/23 12:45 Tissue Culture - Pending
Other-Please specify - Other Gram Stain - Preliminary
08/02/23 12:45 Anaerobic Culture - Pending
Buttock
07/31/23 21:21 Urine Culture - Preliminary
Urine
07/31/23 21:42 Blood Culture - Preliminary
Blood/Venous No Growth in 24 hours- Final report to follow
07/31/23 21:33 Blood Culture - Preliminary
Blood/Venous No Growth in 24 hours- Final report to follow
Imaging:
CT abdomen/pelvis with IV contrast: Findings are suspicious for bilateral pyelonephritis. The bladder is decompressed with a Gabriel catheter, but appears thickened suggesting cystitis. Diffuse anasarca with sacral decubitus ulcer which
abuts the inferior sacrum. No gross evidence for osteomyelitis. There is degenerative changes of both hips with sclerosis of both femoral heads which may represent degenerative changes with avascular necrosis also in the differential. Please see
full dictation for additional detail.
--- NOTE | 2023-08-02 16:09 | CM ---
Patient s/p procedure today. CM updated [facility] following call from liaison and referral sent via all scripts. CM will continue to follow for discharge planning needs.
Plan; home with VN; Craig
--- NOTE | 2023-08-02 16:38 | PN.CDI ---
CDI
- -
CDI:
Physician Documentation Request
Admit Date: 08/01/23 01:33
Dear Doctor Jevon,
07/31 WO notes states 'R heel stage 3 pressure injury, L lateral knee and L lateral ankle with healing stage 2 pressure injuries, R medical ankle small stage 1 pressure injury'
Physician documentation of the type and location of wounds is required for compliant documentation. Based on the above clinical findings and your assessment, please provide the following in your progress note:
1. Location of the ulcer/wound, including laterality.
2. Type (etiology) of ulcer/wound:
- Diabetic ulcer
- Arterial (ischemic) ulcer
- Traumatic wound
- Venous stasis ulcer
- Pressure (decubitus) ulcer
- Non-healing surgical wound
- Other
- Unable to determine
Use of terms such as suspected, likely, concern for, or probable (associated with a specific diagnosis that is being evaluated, monitored, or treated as if it exists) are acceptable and can be coded in the inpatient setting, when documented at the
time of discharge.
Thank you,
Babs Bee RN, BSN
CDI Specialist
tiger text
Please use your independent medical judgment in providing your response.
*Source: National Pressure Ulcer Advisory Panel (NPUAP)
--- NOTE | 2023-08-02 16:41 | PN.CDI ---
CDI
- -
CDI:
Physician Documentation Request
Admit Date: 08/01/23 01:33
Dear Doctor Jevon,
Clinical Indicators:
The diagnosis of sepsis was documented in H&P but is not consistently noted in subsequent documentation.
Statement reads 'Persistent UTI concerning for Pyelonephritis. Asso. sepsis (T 103, WBC > 10) '
Please clarify the following:
____ - Sepsis was present on admission
____ - Sepsis was ruled out
____ - Other
Use of terms such as suspected, likely, concern for, or probable (associated with a specific diagnosis that is being evaluated, monitored, or treated as if it exists) are acceptable and can be coded in the inpatient setting, when documented at the
time of discharge.
Thank you,
Babs Bee RN, BSN
CDI Specialist
tiger text
Please use your independent medical judgment in providing your response.
--- NOTE | 2023-08-02 17:41 | PTCARENOTE ---
Pt. back from OR. Bp 88/43. MD made aware. Patient has no symptoms. IVF bolus and midodrine ordered and administered.
[2023-08-02] MEDS: DAKIN'S SOLUTION 0.125% 1/4 STRENGTH TOPICAL (20:45)
[2023-08-02] MEDS: REMERON 7.5 MG PO (20:59)
[2023-08-03] VITALS (12 sets, daily range): BP systolic 81–130; BP diastolic 40–67; BMI 16.2
[2023-08-03] MEDS: ZOSYN 50 IV ×4 (01:52→21:20)
--- NOTE | 2023-08-03 08:52 | PN.CDI ---
CDI
- -
CDI:
Physician Documentation Request
Admit Date: 08/01/23 01:33
Dear Doctor Jevon,
Please review the following and provide your response in the progress notes.
Clinical Indicators:
Height: 5 ft 2 inches
Weight:83 (on 07/30)
BMI: 15.3 (on 07/30)
Other Clinical Notes:07/31 noted BMI 16 underweight range.... Very mild muscle loss of temples and clavicles noted.
If possible, please provide an associated diagnosis related to the abnormal BMI, such as:
BMI < or = to 19
Underweight
Weight Loss
Cachectic
Anorexia
- BMI is not significant
- Other
- Unable to determine
Use of terms such as suspected, likely, concern for, or probable (associated with a specific diagnosis that is being evaluated, monitored, or treated as if it exists) are acceptable and can be coded in the inpatient setting, when documented at the
time of discharge.
Thank you,
Babs Bee RN, BSN
CDI Specialist
tiger text
Please use your independent medical judgment in providing your response.
[2023-08-03] MEDS: PLAQUENIL 200 MG PO ×2 (09:04→20:38)
[2023-08-03] MEDS: ASPIR LOW (ENTERIC COATED) 81 MG PO (09:04)
[2023-08-03] MEDS: DAKIN'S SOLUTION 0.125% 1/4 STRENGTH 473 ML TOPICAL (09:04)
[2023-08-03] MEDS: KEPPRA 500 MG PO ×2 (09:04→20:38)
[2023-08-03] MEDS: LIPITOR 80 MG PO (09:06)
--- NOTE | 2023-08-03 10:48 | W.PN.ID1 ---
Date of Service
Date of Service: August 03, 2023
Today's Communication
Continue Zosyn (d#3)
Assessment / Plan
Complicated urinary tract infection
Urinary retention
Suspected bilateral pyelonephritis
Leukocytosis
Stage III�4 sacral ulceration
- s/p debridement (08/02/23)
Hx CVA
Seizure disorder
Functional paraplegia
Recommendations:
Continue Zosyn (d#3)
Urine culture, blood cultures and tissue cultures are currently pending.
Monitor white count and temperature curve.
Local care to the sacral wound.
����������������������������������������������������������
Chief Complaint
-: UTI and Other (Sacral wound)
Subjective / Review of Systems
Review of Systems: No Fever and No Chills
Vital Signs / Physical Exam
Vital Signs
Vital Signs
Temp Pulse Resp BP Pulse Ox
98.3 F 65 14 111/57 97
08/03/23 07:12 08/03/23 07:12 08/03/23 07:12 08/03/23 07:12 08/03/23 07:12
Physical Exam
Constitutional: No Acute Distress, Comfortable, Chronically Ill and Non-toxic
Eyes: Sclera Anicteric
Cardiovascular: S1/S2; Negative S3/S4
Pulmonary: Clear and Non Labored
Gastrointestinal: Soft, Non Tender and Non Distended
Extremities: Negative Edema, Cyanosis or Erythema
Wound: Other (Sacral wound dressed)
Neurological: Awake and Alert
Psychological: Calm
Objective Data
Lab Data
Lab Results
08/02/23 07:27
08/02/23 07:27
Estimated Creat Clear 57 ml/min 08/02/23 07:27
Lactic Acid Cancelled 08/01/23 14:35
Total Bilirubin 0.6 mg/dl (0.2-1.3) 08/01/23 08:20
AST 23 U/L (14-36) 08/01/23 08:20
ALT 18 U/L (0-35) 08/01/23 08:20
Alkaline Phosphatase 100 U/L (38-126) 08/01/23 08:20
Most recent labs reviewed.
Micro Results:
08/02/23 12:45 Tissue Culture - Preliminary
Other-Please specify - Other Escherichia coli
Proteus species
Viridans Streptococcus Group
Gram Stain - Preliminary
08/02/23 12:45 Wound Culture - Preliminary
Buttock Escherichia coli
Viridans Streptococcus Group
Gram Stain - Preliminary
08/02/23 12:45 Anaerobic Culture - Preliminary
Buttock Culture pending. Anaerobic cultures are examined after 3
days incubation. Additional information to follow.
07/31/23 21:42 Blood Culture - Preliminary
Blood/Venous No Growth in 48 hours- Final report to follow
07/31/23 21:33 Blood Culture - Preliminary
Blood/Venous No Growth in 48 hours- Final report to follow
07/31/23 21:21 Urine Culture - Preliminary
Urine
Imaging:
07/31/23 CT abdomen/pelvis with IV contrast: Findings are suspicious for bilateral pyelonephritis. The bladder is decompressed with a Gabriel catheter, but appears thickened suggesting cystitis. Diffuse anasarca with sacral decubitus ulcer which abuts
the inferior sacrum. No gross evidence for osteomyelitis. There is degenerative changes of both hips with sclerosis of both femoral heads which may represent degenerative changes with avascular necrosis also in the differential. Please see full
dictation for additional detail.
--- NOTE | 2023-08-03 11:26 | WOUNDNOTE ---
[facility] RN note: Patient seen with Dr. Collado. Sacral dressing changed. Stage 3 pressure injury pink with some yellow slough. Dr. Collado requested saline gauze packing and can pack with Dakin's prn odor. Dr. Collado stated sacral wound vac can start on
Tuesday if still here otherwise, can start at home or SNF. [place] texted [facility] Ricardo. re: discharge plan as patient will need a vac after discharge. She had minor bleeding during dressing changed which stopped with minor manual pressure. Patient turned
to L semi side lying position with help from [facility] RN student Latia. Heels off bed with [employer] Waffle boots. Care plan to be updated. Po intake appears poor.
--- NOTE | 2023-08-03 11:33 | W.PN.GS2 ---
Today's Communication / Plan
-
Local wound care
Assessment / Plan
-
Patient is a 67 yo F p/w UTI and pyelonephritis. Found to have an unstageable (possibly III) decubitus ulcer.
Clinically stable. Repeat labs ordered. Discussion with patient yesterday regarding management of decubitus ulcers. Evidence of necrotic and possibly infected material necessitating debridement. Plan for operative debridement today (24 hours
post last dose of Eliquis and in the OR for improved debridement/tolerance).
Plan for incision and debridement of a decubitus ulcer. The procedure itself, as well as the risks, benefits, and alternatives was discussed. Specifically we discussed the risks of bleeding, infection (persistence need further debridement
procedures), injury to surrounding structures, and continued need for wound management and possible debridement procedures. Post-procedure recovery was discussed. All questions answered. Consent signed (patient with intact mental status and
ability to make medical decisions, unable to physically sign, 2 physician signature).
-- Local wound care
-- Offloading
-- Nutritional support
-- Good candidate for wound vac, d/w wound care team
-- Pls call with ?s
Briefly discussed diverting ostomy if wound soilage with stool continues to be a problem. is not interested in pursuing at this time.
Subjective Data
-
Date of Service: August 03, 2023
No complaints, non verbal, most interaction is with who is primary caregiver, he also has no complaints/concerns
Objective Data
-
Intake and Output
08/02/23 08/03/23 08/04/23
06:59 06:59 06:59
Intake Total 1220 / 1220 990 / 990
Output Total 500 / 500 450 / 450
Balance 720 / 720 540 / 540
Intake:
Oral fluids 240 / 240 120 / 120
IV fluids (Total) 880 / 880 770 / 770
normosol 50 / 50
IV piggybacks 100 / 100 100 / 100
Output:
Urine, Gabriel 500 / 500 75 / 75
Urine, Voided 375 / 375
Other:
Number of unmeasured liquid
stools
Rectum 1
Vital Signs
Temp Pulse Resp BP Pulse Ox
98.8 F 83 16 102/56 99
08/03/23 11:24 08/03/23 11:24 08/03/23 11:24 08/03/23 11:24 08/03/23 11:24
Lab Results
08/02/23 07:27
08/02/23 07:27
Calcium 7.9 mg/dl (8.4-10.2) L 08/02/23 07:27
Total Bilirubin 0.6 mg/dl (0.2-1.3) 08/01/23 08:20
AST 23 U/L (14-36) 08/01/23 08:20
ALT 18 U/L (0-35) 08/01/23 08:20
Alkaline Phosphatase 100 U/L (38-126) 08/01/23 08:20
Total Protein 5.0 g/dl (6.3-8.2) L 08/01/23 08:20
Albumin 2.0 g/dl (3.5-5.0) L 08/01/23 08:20
Physical Exam
-
Gen: NAd
Rectal: sacral pressure wound without significant necrosis, escar or purulence, slight ooze from skin edge at 4:00 position not active during my exam
[2023-08-03 13:03] LABS: Hemoglobin 7.1 g/dL (12.0-16.0); Mean Corp Hgb Conc. 32.3 g/dL (33.0-37.0); Mean Corpuscular Volume 86.6 fL (81.0-99.0); Mean Platelet Volume 9.1 fL (7.4-10.4); Platelet Count 558 10^3/uL (130-400); Red Blood Cell Count 2.54 10^6/uL (4.20-5.40); Red Cell Dist. Width 16.8 % (11.5-14.5); White Blood Cell Count 16.3 10^3/uL (4.8-10.8)
[2023-08-03] MEDS: TYLENOL 650 MG PO (13:04)
--- NOTE | 2023-08-03 13:06 | WOUNDNOTE ---
WO RN Note: Notified ONI Sarabia re: patient will need a wound vac post discharge. Yuliana stated plan is home with her [facility]. Completed and faxed home ready vac pump and equipment request from . Kira from confirmed she received the home
ready care vac request. Gregorio texted NELSON Rojas and requested a dietary consult.
[2023-08-03 13:33] LABS: Blood Urea Nitrogen 9 mg/dl (7-17); Calcium 7.9 mg/dl (8.4-10.2); Carbon Dioxide 24 mmol/L (22-30); Chloride 107 mmol/L (98-107); Estimated Creatinine Clearance 59 ml/min; Glucose 108 mg/dl (70-99); Potassium 3.3 mmol/L (3.5-5.1); Sodium 138 mmol/L (135-145); eGFR > 60.00
[2023-08-03] MEDS: KCL 20 MEQ PO (14:24)
--- NOTE | 2023-08-03 15:14 | CM ---
IV/AB, Sacral wound care. Discharge Plan of Care: Home with [facility] services. cares for patient.
[2023-08-03] MEDS: ProAmatine 10 MG PO (15:31)
--- NOTE | 2023-08-03 15:37 | W.PN.HOSP.TC ---
Today's Communication/Plan
-
see note
Assessment / Plan
Assessment / Plan
CT a/p
1. Findings suspicious for bilateral pyelonephritis. The bladder is decompressed with Gabriel catheter but appears thickened suggesting also a cystitis.
2. 15 x 9 mm hypodense lesion within the pancreatic head which may represent a cyst or intraductal mucinous neoplasm. No significant dilatation of the pancreatic duct.
3. Diffuse anasarca with sacral decubitus ulcer which abuts the inferior sacrum. No gross evidence for osteomyelitis.
4. Degenerative changes of both hips with sclerosis of both femoral heads which may represent degenerative change with avascular necrosis also within differential.
5. Additional findings above.

1. Pyelonephritis
Persistent UTI
Sepsis - POA
-CT a/p showing bilateral pyelonephritis with possible cystitis as well
-Patient was just recently discharged from [facility] after treatment of UTI. No cultures available from from that visit
-Urine culture growing mixed tad - discussed with labs and have 3 gram neg, one gram positive cocci and bacilli, Discussed with ID for any further need of identification.
-Patient currently on empiric Zosyn with suspicion of MDR organism causing symptoms
2. Stage IV decubitus ulcer
-Located on superior right posterior iliac spine area
-Pelvic x-ray did not show any bone destruction
-Wound care evaluated, the necrotic eschar on the ulcer base
-General surgery did debridement of the area on 08/01
-Intra operative culture growing strep viridans, ecoli and proteus.
-Resume back on eliquis from evening
3. H/o of recurrent CVA
-Patient on dysphagia diet
-Wheelchair-bound and requires assistance
4. Acute blood loss anemia
-from surgical blood loss
-providing 1 u PRBC
5. Hypokalemia
-replaced
6. R heel stage 3 pressure injury
L lateral knee and L lateral ankle with healing stage 2 pressure injuries
R medical ankle small stage 1 pressure injury
-All present at admission, base wad operator adjuster following
Normocytic anemia
Metabolic acidosis
Reactive thrombocytosis
Hyperlipidemia
h/o of seizure
Depression
DVT Px: chr Eliquis
Code: DNR per at bed side
Discussed with daughter at bedside
Anticipated Discharge: 24 - 48 hours
Subjective/Interval History
-
Date of Service: August 03, 2023
resting comfortably in bed
afebrile in night
no other issues
Objective Data
-
Labs:
Laboratory Results
08/03/23
12:31
WBC 16.3 H
Hgb 7.1 L
Hct 22.0 L
Plt Count 558 H
Sodium 138
Potassium 3.3 L
Chloride 107
Carbon Dioxide 24
BUN 9
Creatinine 0.5 L
Glucose 108 H
Calcium 7.9 L
Vital Signs:
Vital Signs
Temp Pulse Resp BP Pulse Ox
99.3 F 77 14 81/40 97
08/03/23 15:08 08/03/23 15:31 08/03/23 15:08 08/03/23 15:31 08/03/23 15:08
I&O
08/02/23 08/03/23 08/04/23
06:59 06:59 06:59
Intake Total 1220 / 1220 990 / 990
Output Total 500 / 500 450 / 450
Balance 720 / 720 540 / 540
Review of Systems
-
Respiratory: Reports No Symptoms
Cardiac: Reports No Symptoms
Abdomen/GI: Reports No Symptoms
Physical Exam
-
General: No Apparent Distress and Comfortable
HEENT: Negative Oxygen
Neuro: Awake, Alert and Oriented
Psych: Calm
[2023-08-03] MEDS: ProAmatine PO (17:54)
--- NOTE | 2023-08-03 18:33 | PTCARENOTE ---
Pts. bp 81/40. made aware. Midodrine ordered.
[2023-08-03] MEDS: REMERON 7.5 MG PO (20:38)
[2023-08-03] MEDS: ELIQUIS 5 MG PO (20:38)
--- NOTE | 2023-08-03 21:35 | PTCARENOTE ---
1 unit PRBCs transfused; no reaction noted; vss.
[2023-08-04] MEDS: ZOSYN 50 IV ×2 (02:26→09:09)
[2023-08-04 03:27] VITALS: BP 134/66
[2023-08-04 06:07] LABS: Hematocrit 26.2 % (37.0-47.0); Mean Corp Hgb Conc. 33.6 g/dL (33.0-37.0); Mean Corpuscular Hgb 29.1 pg (27.0-31.0); Mean Corpuscular Volume 86.8 fL (81.0-99.0); Mean Platelet Volume 8.8 fL (7.4-10.4); Platelet Count 515 10^3/uL (130-400); Red Blood Cell Count 3.02 10^6/uL (4.20-5.40); Red Cell Dist. Width 15.9 % (11.5-14.5); White Blood Cell Count 11.4 10^3/uL (4.8-10.8)
[2023-08-04 06:33] VITALS: BMI 16.5
[2023-08-04 06:33] LABS: Blood Urea Nitrogen 9 mg/dl (7-17); Calcium 7.8 mg/dl (8.4-10.2); Carbon Dioxide 26 mmol/L (22-30); Chloride 109 mmol/L (98-107); Estimated Creatinine Clearance 59 ml/min; Glucose 72 mg/dl (70-99); Potassium 3.4 mmol/L (3.5-5.1); Sodium 139 mmol/L (135-145); eGFR > 60.00
[2023-08-04 06:38] LABS: Hemoglobin 8.8 g/dL (12.0-16.0)
[2023-08-04 07:04] VITALS: BP 133/70
[2023-08-04] MEDS: LIPITOR 80 MG PO (09:07)
[2023-08-04] MEDS: ASPIR LOW (ENTERIC COATED) 81 MG PO (09:08)
[2023-08-04] MEDS: ProAmatine PO ×3 (09:08→17:49)
[2023-08-04] MEDS: KEPPRA 500 MG PO ×2 (09:08→19:46)
[2023-08-04] MEDS: ELIQUIS 5 MG PO ×2 (09:08→19:46)
[2023-08-04] MEDS: PLAQUENIL 200 MG PO ×2 (09:09→19:46)
--- NOTE | 2023-08-04 10:56 | W.PN.ID1 ---
Date of Service
Date of Service: August 04, 2023
Today's Communication
Transition to Unasyn (d#4 abx)
Assessment / Plan
Complicated urinary tract infection
Urinary retention
Suspected bilateral pyelonephritis
Leukocytosis
Stage IV sacral ulceration
- s/p debridement (08/02/23)
Hx CVA
Seizure disorder
Functional paraplegia
Recommendations:
Blood cultures no growth. Urine culture with multiple organisms.
Leukocytosis improved.
Narrow to unasyn 3 g IV every 6 hours.
If white count continues to improve, can transition to Augmentin at discharge. Would complete 14 days (through 08/15/23)
Local care to the sacral wound. Given overall frailty and current bedbound nature, healing will be difficult.
����������������������������������������������������������
Chief Complaint
-: UTI and Other (Sacral wound)
Subjective / Review of Systems
Review of Systems: No Fever and No Chills
Vital Signs / Physical Exam
Vital Signs
Vital Signs
Temp Pulse Resp BP Pulse Ox
98.7 F 63 16 133/70 99
08/04/23 07:04 08/04/23 09:08 08/04/23 07:04 08/04/23 09:08 08/04/23 07:04
Physical Exam
Constitutional: No Acute Distress, Comfortable, Chronically Ill and Non-toxic
Eyes: Sclera Anicteric
Cardiovascular: S1/S2; Negative S3/S4
Pulmonary: Clear and Non Labored
Gastrointestinal: Soft, Non Tender and Non Distended
Extremities: Negative Edema, Cyanosis or Erythema
Wound: Other (Sacral wound dressed)
Neurological: Awake and Alert
Psychological: Calm and Confused
Objective Data
Lab Data
Lab Results
08/04/23 05:40
08/04/23 05:40
Estimated Creat Clear 59 ml/min 08/04/23 05:40
Lactic Acid Cancelled 08/01/23 14:35
Total Bilirubin 0.6 mg/dl (0.2-1.3) 08/01/23 08:20
AST 23 U/L (14-36) 08/01/23 08:20
ALT 18 U/L (0-35) 08/01/23 08:20
Alkaline Phosphatase 100 U/L (38-126) 08/01/23 08:20
Most recent labs reviewed.
Micro Results:
08/02/23 12:45 Wound Culture - Preliminary
Buttock Escherichia coli
Viridans Streptococcus Group
Gram Stain - Preliminary
08/02/23 12:45 Tissue Culture - Preliminary
Other-Please specify - Other Escherichia coli
Proteus mirabilis
Enterococcus species
Viridans Streptococcus Group
Gram Stain - Preliminary
07/31/23 21:42 Blood Culture - Preliminary
Blood/Venous No Growth in 72 hours- Final report to follow
07/31/23 21:33 Blood Culture - Preliminary
Blood/Venous No Growth in 72 hours- Final report to follow
07/31/23 21:21 Urine Culture - Final
Urine
08/02/23 12:45 Anaerobic Culture - Preliminary
Buttock Culture pending. Anaerobic cultures are examined after 3
days incubation. Additional information to follow.
Decub ulcer culture
1. Escherichia coli
M.I.C. RX
--------- ---
Amoxicillin/Potas. Clavulanate <=8/4 S
Ampicillin <=8 S
Ampicillin/Sulbactam <=8/4 S
Cefazolin <=2 S
Ertapenem <=0.5 S
Ciprofloxacin <=0.25 S
Gentamicin <=4 S
Levofloxacin <=0.5 S
Meropenem <=1 S
Piperacillin/Tazobactam <=16 S
Tobramycin <=4 S
Trimethoprim/Sulfamethoxazole <=2/38 S
2. Proteus mirabilis
M.I.C. RX
--------- ---
Amoxicillin/Potas. Clavulanate <=8/4 S
Ampicillin <=8 S
Ampicillin/Sulbactam <=8/4 S
Cefazolin <=2 S
Ertapenem <=0.5 S
Ciprofloxacin <=0.25 S
Gentamicin <=4 S
Levofloxacin <=0.5 S
Meropenem <=1 S
Piperacillin/Tazobactam <=16 S
Tobramycin <=4 S
Trimethoprim/Sulfamethoxazole <=2/38 S
Imaging:
07/31/23 CT abdomen/pelvis with IV contrast: Findings are suspicious for bilateral pyelonephritis. The bladder is decompressed with a Gabriel catheter, but appears thickened suggesting cystitis. Diffuse anasarca with sacral decubitus ulcer which abuts
the inferior sacrum. No gross evidence for osteomyelitis. There is degenerative changes of both hips with sclerosis of both femoral heads which may represent degenerative changes with avascular necrosis also in the differential. Please see full
dictation for additional detail.
--- NOTE | 2023-08-04 11:27 | WOUNDNOTE ---
WOC RN Note: Kira from [facility] notified this sql report writer that patient's home ready vac pump/equipment was approved. Notified CM Yuliana Rasheed, patient and patient's . Will provide home vac on day of discharge which is in this sql report writer's office.
[2023-08-04 11:30] VITALS: BP 117/76
[2023-08-04] MEDS: UNASYN IV ×3 (13:06→23:49)
--- NOTE | 2023-08-04 14:11 | W.PN.HOSP.TC ---
Today's Communication/Plan
-
abx per ID
dispo planning in 24-48hrs
Assessment / Plan
Assessment / Plan
CT a/p
1. Findings suspicious for bilateral pyelonephritis. The bladder is decompressed with Gabriel catheter but appears thickened suggesting also a cystitis.
2. 15 x 9 mm hypodense lesion within the pancreatic head which may represent a cyst or intraductal mucinous neoplasm. No significant dilatation of the pancreatic duct.
3. Diffuse anasarca with sacral decubitus ulcer which abuts the inferior sacrum. No gross evidence for osteomyelitis.
4. Degenerative changes of both hips with sclerosis of both femoral heads which may represent degenerative change with avascular necrosis also within differential.
5. Additional findings above.

1. Pyelonephritis
Persistent UTI
Sepsis - POA
-CT a/p showing bilateral pyelonephritis with possible cystitis as well
-Patient was just recently discharged from [facility] after treatment of UTI. No cultures available from from that visit
-Urine culture growing mixed tad - discussed with labs and have 3 gram neg, one gram positive cocci and bacilli, Discussed with ID for any further need of identification.
-Antibiotics were changed to Unasyn.
2. Stage IV decubitus ulcer
-Located on superior right posterior iliac spine area
-Pelvic x-ray did not show any bone destruction
-Wound care evaluated, the necrotic eschar on the ulcer base
-General surgery did debridement of the area on 08/01
-Intra operative culture growing strep viridans, Ecoli, proteus and Entero-coccus.
-Back on Eliquis at this point
3. H/o of recurrent CVA
-Patient on dysphagia diet
-Wheelchair-bound and requires assistance
4. Acute blood loss anemia
-from surgical blood loss
-Hemoglobin stable s/p 1 unit of PRBC transfusion
5. Hypokalemia
-replaced
6. R heel stage 3 pressure injury
L lateral knee and L lateral ankle with healing stage 2 pressure injuries
R medical ankle small stage 1 pressure injury
-All present at admission, certified endoscopy technician following
Normocytic anemia
Metabolic acidosis
Reactive thrombocytosis
Hyperlipidemia
h/o of seizure
Depression
DVT Px: chr Eliquis
Code: DNR per at bed side
Discussed with spouse at bedside
Anticipated Discharge: 24 - 48 hours
Subjective/Interval History
-
Date of Service: August 04, 2023
Patient resting comfortably in bed
Afebrile and night
Spouse at bedside
Objective Data
-
Labs:
Laboratory Results
08/04/23
05:40
WBC 11.4 H
Hgb 8.8 L D
Hct 26.2 L
Plt Count 515 H
Sodium 139
Potassium 3.4 L
Chloride 109 H
Carbon Dioxide 26
BUN 9
Creatinine 0.5 L
Glucose 72
Calcium 7.8 L
Vital Signs:
Vital Signs
Temp Pulse Resp BP Pulse Ox
99.4 F 62 16 115/65 98
08/04/23 11:30 08/04/23 13:07 08/04/23 11:30 08/04/23 13:07 08/04/23 11:30
I&O
08/03/23 08/04/23 08/05/23
06:59 06:59 06:59
Intake Total 990 / 990 690 / 690
Output Total 450 / 450 625 / 625
Balance 540 / 540 65 / 65
Review of Systems
-
Respiratory: Reports No Symptoms
Cardiac: Reports No Symptoms
Abdomen/GI: Reports No Symptoms
Physical Exam
-
General: No Apparent Distress and Comfortable
HEENT: Negative Oxygen
Neuro: Awake, Alert and Oriented
Psych: Calm
[2023-08-04 15:10] VITALS: BP 151/80
[2023-08-04] MEDS: TYLENOL 650 MG PO (15:54)
--- NOTE | 2023-08-04 16:22 | CM ---
IV/Unasyn. Confirmed discharge plan of care with patient and : Home with resumption of [facility]N, PT/OT. is office services representative.
[2023-08-04 19:25] VITALS: BP 132/79
[2023-08-04] MEDS: REMERON 7.5 MG PO (21:57)
[2023-08-04 23:08] VITALS: BP 151/73
[2023-08-05 03:02] VITALS: BP 151/76
[2023-08-05] MEDS: UNASYN IV (05:12)
[2023-08-05 06:11] VITALS: BMI 16.2
[2023-08-05 07:06] VITALS: BP 150/75
[2023-08-05 07:47] LABS: Hematocrit 26.1 % (37.0-47.0); Hemoglobin 8.8 g/dL (12.0-16.0); Mean Corp Hgb Conc. 33.7 g/dL (33.0-37.0); Mean Corpuscular Hgb 28.9 pg (27.0-31.0); Mean Corpuscular Volume 85.6 fL (81.0-99.0); Mean Platelet Volume 8.9 fL (7.4-10.4); Platelet Count 564 10^3/uL (130-400); Red Blood Cell Count 3.05 10^6/uL (4.20-5.40); White Blood Cell Count 8.3 10^3/uL (4.8-10.8)
[2023-08-05] MEDS: ASPIR LOW (ENTERIC COATED) 81 MG PO (08:27)
[2023-08-05] MEDS: ProAmatine PO ×3 (08:27→17:03)
[2023-08-05] MEDS: LIPITOR 80 MG PO (08:27)
[2023-08-05] MEDS: KEPPRA 500 MG PO ×2 (08:27→20:30)
[2023-08-05] MEDS: PLAQUENIL 200 MG PO ×2 (08:27→20:31)
[2023-08-05] MEDS: ELIQUIS 5 MG PO ×2 (08:27→20:30)
[2023-08-05 08:33] LABS: Blood Urea Nitrogen 6 mg/dl (7-17); Calcium 7.5 mg/dl (8.4-10.2); Carbon Dioxide 26 mmol/L (22-30); Chloride 109 mmol/L (98-107); Estimated Creatinine Clearance 59 ml/min; Glucose 68 mg/dl (70-99); Potassium 2.9 mmol/L (3.5-5.1); Sodium 139 mmol/L (135-145); eGFR > 60.00
[2023-08-05] MEDS: TYLENOL 650 MG PO ×2 (09:44→23:23)
--- NOTE | 2023-08-05 10:50 | CM ---
Addendum entered by Nu Baker 08/05/23 14:59:
[facility] updated.
Kayleen from [facility] updated, VN will see Tuesday.
Per wound care nurse, hospital wound vac to be removed tomorrow and home vac to be applied.
Original Note:
Spoke with patient and spouse bedside.
Wound care following for wound vac and will need to be updated if patient for d/c home today.
[facility] to follow on d/c will need wound care notes faxed to them.
Plan: home with [facility].
[facility] Office
--- NOTE | 2023-08-05 11:11 | W.PN.ID1 ---
Date of Service
Date of Service: August 05, 2023
Today's Communication
Transition to Augmentin.
Assessment / Plan
Complicated urinary tract infection
Urinary retention
Suspected bilateral pyelonephritis
Leukocytosis
Stage IV sacral ulceration
- s/p debridement (08/02/23)
Hx CVA
Seizure disorder
Functional paraplegia
Recommendations:
Blood cultures no growth. Urine culture with multiple organisms.
Leukocytosis improved.
Transition to Augmentin 875 mg PO BID through 08/15/23
Local care to the sacral wound. Given overall frailty and current bedbound nature, healing will be difficult.
Need for good nutrition and offloading stressed to .
����������������������������������������������������������
Chief Complaint
-: UTI and Other (Sacral wound)
Subjective / Review of Systems
Review of Systems: No Fever and No Chills
Vital Signs / Physical Exam
Vital Signs
Vital Signs
Temp Pulse Resp BP Pulse Ox
98.5 F 68 16 150/75 99
08/05/23 07:06 08/05/23 08:27 08/05/23 07:06 08/05/23 08:27 08/05/23 07:06
Physical Exam
Constitutional: No Acute Distress, Comfortable, Chronically Ill and Non-toxic
Eyes: Sclera Anicteric
Cardiovascular: S1/S2; Negative S3/S4
Pulmonary: Clear and Non Labored
Gastrointestinal: Soft, Non Tender and Non Distended
Extremities: Negative Edema, Cyanosis or Erythema
Wound: Other (Sacral wound reviewed. Minimal slough. No malodor. No significant drainage. Undermining noted. Minimal periwound erythema.)
Neurological: Awake and Alert
Psychological: Calm and Confused
Objective Data
Lab Data
Lab Results
08/05/23 07:30
08/05/23 07:30
Estimated Creat Clear 59 ml/min 08/05/23 07:30
Lactic Acid Cancelled 08/01/23 14:35
Total Bilirubin 0.6 mg/dl (0.2-1.3) 08/01/23 08:20
AST 23 U/L (14-36) 08/01/23 08:20
ALT 18 U/L (0-35) 08/01/23 08:20
Alkaline Phosphatase 100 U/L (38-126) 08/01/23 08:20
Most recent labs reviewed.
Micro Results:
08/02/23 12:45 Wound Culture - Preliminary
Buttock Escherichia coli
Viridans Streptococcus Group
Gram Stain - Preliminary
08/02/23 12:45 Tissue Culture - Final
Other-Please specify - Other Escherichia coli
Proteus mirabilis
Enterococcus faecalis
Viridans Streptococcus Group
Gram Stain - Preliminary
07/31/23 21:42 Blood Culture - Preliminary
Blood/Venous No Growth in 4 days- Final report to follow
07/31/23 21:33 Blood Culture - Preliminary
Blood/Venous No Growth in 4 days- Final report to follow
07/31/23 21:21 Urine Culture - Final
Urine
08/02/23 12:45 Anaerobic Culture - Preliminary
Buttock Culture pending. Anaerobic cultures are examined after 3
days incubation. Additional information to follow.
Decub ulcer culture
1. Escherichia coli
M.I.C. RX
--------- ---
Amoxicillin/Potas. Clavulanate <=8/4 S
Ampicillin <=8 S
Ampicillin/Sulbactam <=8/4 S
Cefazolin <=2 S
Ertapenem <=0.5 S
Ciprofloxacin <=0.25 S
Gentamicin <=4 S
Levofloxacin <=0.5 S
Meropenem <=1 S
Piperacillin/Tazobactam <=16 S
Tobramycin <=4 S
Trimethoprim/Sulfamethoxazole <=2/38 S
2. Proteus mirabilis
M.I.C. RX
--------- ---
Amoxicillin/Potas. Clavulanate <=8/4 S
Ampicillin <=8 S
Ampicillin/Sulbactam <=8/4 S
Cefazolin <=2 S
Ertapenem <=0.5 S
Ciprofloxacin <=0.25 S
Gentamicin <=4 S
Levofloxacin <=0.5 S
Meropenem <=1 S
Piperacillin/Tazobactam <=16 S
Tobramycin <=4 S
Trimethoprim/Sulfamethoxazole <=2/38 S
Imaging:
07/31/23 CT abdomen/pelvis with IV contrast: Findings are suspicious for bilateral pyelonephritis. The bladder is decompressed with a Gabriel catheter, but appears thickened suggesting cystitis. Diffuse anasarca with sacral decubitus ulcer which abuts
the inferior sacrum. No gross evidence for osteomyelitis. There is degenerative changes of both hips with sclerosis of both femoral heads which may represent degenerative changes with avascular necrosis also in the differential. Please see full
dictation for additional detail.
Care Review
Plan reviewed with: Physician (Hospitalist)
--- NOTE | 2023-08-05 11:35 | WOUNDNOTE ---
[facility] RN note: Applied sacral wound vac after NELSON Jarvis premedicated patient for pain. Patient tolerated dressing change. Wound 80%pink, 20% yellow necrotic with some surrounding erythema. Dr. Garza was in who assessed patient and her wound. Ready
home vac equipment given to patient. signed proof of delivery form. Hospital rental vac connected to vac dressing since plan is discharge tomorrow (Serial # [id number]). Instructed patient's how to connect from rental hospital vac to
patient's home vac (Serial #[id number]) with nursing supervision. Instructed how to turn on/off vac pump, how to disconnect and reconnect tubing, how to change canister, how to trouble shoot vac alarms, instructed if christopher bleeding occurs
from wound to clamp vac tubing, turn off vac and call 911. Instructed if vac loses it's seal and it cannot be corrected within 2 hours, the vac dressing needs to be removed and a temporary saline moistened gauze packing dressing placed until
VN can reapply new vac dressing. instructed to call VN or [employer] vac tech support 13/09. R medial heel ulcer almost healed. R heel dressing changed. L lateral ankle red area resolving as well as R medial ankle. L medial elbow with small dry pink
abrasion. Silicone border foam applied. L lateral knee abrasion newly healed; silicone foam maintained. Patient turned to L semi side lying position with help from [facility] RN student Latia. Pillow between legs. Air chair cushion placed under
heels/ankles. Patient wears [employer] boots intermittently. Po intake better when family brings in food. She drinks a supplement at home as per . Next vac dressing due Tuesday.
--- NOTE | 2023-08-05 11:37 | WOUNDNOTE ---
[facility] RN note: Applied sacral wound vac after NELSON Jarvis premedicated patient for pain. Patient tolerated dressing change. Wound 80%pink, 20% yellow necrotic with some surrounding erythema. Dr. Garza was in who assess patient and her wound. Ready home
vac equipment given to patient. signed proof of delivery form. Hospital rental vac connected to vac dressing since plan is discharge tomorrow (Serial # [id number]). Instructed patient's how to connect from rental hospital vac to
patient's home vac (Serial #[id number]) with nursing supervision. Instructed how to turn on/off vac pump, how to disconnect and reconnect tubing, how to change canister, how to trouble shoot vac alarms, instructed if christopher bleeding occurs
from wound to clamp vac tubing, turn off vac and call 911. Instructed if vac loses it's seal and it cannot be corrected within 2 hours, the vac dressing needs to be removed and a temporary saline moistened gauze packing dressing placed until
VN can reapply new vac dressing. instructed to call or [employer] vac tech support 13/09. R medial heel ulcer almost healed. R heel dressing changed. L lateral ankle red area resolving as well as R medial ankle. L medial elbow with small dry pink
abrasion. Silicone border foam applied. L lateral knee abrasion newly healed; silicone foam maintained. Patient turned to L semi side lying position with help from [facility] RN student Latia. Pillow between legs. Air chair cushion placed under
heels/ankles. Patient wears [employer] boots intermittently. Po intact better when family brings in food. She drinks a supplement at home as per .
[2023-08-05 11:55] VITALS: BP 165/91
[2023-08-05] MEDS: KCL ELIXIR 40 MEQ PO (12:02)
--- NOTE | 2023-08-05 12:33 | W.PN.HOSP.TC ---
Today's Communication/Plan
-
discharge tomorrow AM
Assessment / Plan
Assessment / Plan
CT a/p
1. Findings suspicious for bilateral pyelonephritis. The bladder is decompressed with Gabriel catheter but appears thickened suggesting also a cystitis.
2. 15 x 9 mm hypodense lesion within the pancreatic head which may represent a cyst or intraductal mucinous neoplasm. No significant dilatation of the pancreatic duct.
3. Diffuse anasarca with sacral decubitus ulcer which abuts the inferior sacrum. No gross evidence for osteomyelitis.
4. Degenerative changes of both hips with sclerosis of both femoral heads which may represent degenerative change with avascular necrosis also within differential.
5. Additional findings above.

1. Pyelonephritis
Persistent UTI
Sepsis - POA
-CT a/p showing bilateral pyelonephritis with possible cystitis as well
-Patient was just recently discharged from [facility] after treatment of UTI. No cultures available from from that visit
-Urine culture growing mixed tad - discussed with labs and have 3 gram neg, one gram positive cocci and bacilli, Discussed with ID for any further need of identification.
-Unasyn changed to Augmentin BID through 08/15/23
2. Stage IV decubitus ulcer
-Located on superior right posterior iliac spine area
-Pelvic x-ray did not show any bone destruction
-Wound care evaluated, the necrotic eschar on the ulcer base
-General surgery did debridement of the area on 08/01
-Intra operative culture growing strep viridans, Ecoli, proteus and Entero-coccus.
-Back on Eliquis at this point
-Wound vac in place and VN wound care have been arranged.
3. H/o of recurrent CVA
-Patient on dysphagia diet
-Wheelchair-bound and requires assistance
4. Acute blood loss anemia
-from surgical blood loss
-Hemoglobin stable s/p 1 unit of PRBC transfusion
5. Hypokalemia
-replace today with 40meq K
6. R heel stage 3 pressure injury
L lateral knee and L lateral ankle with healing stage 2 pressure injuries
R medical ankle small stage 1 pressure injury
-All present at admission, economics instructor following
7. Urinary retention - presumed chronic
-Gabriel catheter was placed and discontinued this admit
-Unfortunately patient continued to retain and repeat Gabriel has been placed
-Patient will need to f/u with urology in office for voiding trial
Normocytic anemia
Metabolic acidosis
Reactive thrombocytosis
Hyperlipidemia
h/o of seizure
Depression
DVT Px: chr Eliquis
Code: DNR per at bed side
Discussed with spouse at bedside 08/02-
Anticipated Discharge: Within 24 hours
Subjective/Interval History
-
Date of Service: August 05, 2023
denies of having any problems overnight
some pain at debridement site
no other issues reported
Objective Data
-
Labs:
Laboratory Results
08/05/23
07:30
WBC 8.3
Hgb 8.8 L
Hct 26.1 L
Plt Count 564 H
Sodium 139
Potassium 2.9 L
Chloride 109 H
Carbon Dioxide 26
BUN 6 L
Creatinine 0.4 L
Glucose 68 L
Calcium 7.5 L
Vital Signs:
Vital Signs
Temp Pulse Resp BP Pulse Ox
99.2 F 74 16 165/91 99
08/05/23 11:55 08/05/23 12:08 08/05/23 11:55 08/05/23 12:08 06/14/24 11:55
I&O
08/04/23 08/05/23 08/06/23
06:59 06:59 06:59
Intake Total 690 / 690 760 / 760
Output Total 625 / 625 900 / 900
Balance 65 / 65 -140 / -140
Review of Systems
-
Respiratory: Reports No Symptoms
Cardiac: Reports No Symptoms
Abdomen/GI: Reports No Symptoms
Physical Exam
-
General: No Apparent Distress and Comfortable
HEENT: Negative Oxygen
Neuro: Awake, Alert and Oriented
Psych: Calm
[2023-08-05] MEDS: DILAUDID IV (13:26)
[2023-08-05] MEDS: DILAUDID 0.25 MG IV (13:48)
[2023-08-05 15:25] VITALS: BP 129/64
[2023-08-05 19:27] VITALS: BP 145/80
[2023-08-05] MEDS: AUGMENTIN 875 MG/125 MG 1 TABLET PO (20:31)
[2023-08-05] MEDS: REMERON 7.5 MG PO (23:05)
[2023-08-05 23:48] VITALS: BP 156/79
[2023-08-06] VITALS (8 sets, daily range): BP systolic 92–154; BP diastolic 49–82; BMI 16.0
--- NOTE | 2023-08-06 06:45 | PTCARENOTE ---
Wound vac dsg noted with large clots and actively bleeding this morning, stopped wound vac, wet to dry kerlix dressing applied, labs drawn shortly after. Hospitalist notified by oncoming shift nurse. Pt denied pain from sacral wound.
[2023-08-06 07:29] LABS: Hematocrit 26.7 % (37.0-47.0); Hemoglobin 9.1 g/dL (12.0-16.0); Mean Corp Hgb Conc. 34.1 g/dL (33.0-37.0); Mean Corpuscular Hgb 28.6 pg (27.0-31.0); Mean Platelet Volume 8.9 fL (7.4-10.4); Platelet Count 645 10^3/uL (130-400); Red Blood Cell Count 3.18 10^6/uL (4.20-5.40); Red Cell Dist. Width 16.4 % (11.5-14.5); White Blood Cell Count 11.4 10^3/uL (4.8-10.8)
[2023-08-06 08:04] LABS: Blood Urea Nitrogen 7 mg/dl (7-17); Calcium 7.7 mg/dl (8.4-10.2); Carbon Dioxide 26 mmol/L (22-30); Chloride 108 mmol/L (98-107); Estimated Creatinine Clearance 59 ml/min; Glucose 72 mg/dl (70-99); Potassium 3.9 mmol/L (3.5-5.1); Sodium 138 mmol/L (135-145); eGFR > 60.00
[2023-08-06] MEDS: LIPITOR 80 MG PO (09:01)
[2023-08-06] MEDS: ProAmatine PO ×2 (09:02→12:50)
[2023-08-06] MEDS: ASPIR LOW (ENTERIC COATED) 81 MG PO (09:02)
[2023-08-06] MEDS: AUGMENTIN 875 MG/125 MG 1 TABLET PO ×2 (09:02→20:20)
[2023-08-06] MEDS: PLAQUENIL 200 MG PO ×2 (09:02→20:19)
[2023-08-06] MEDS: KEPPRA 500 MG PO ×2 (09:02→20:20)
--- NOTE | 2023-08-06 10:14 | W.PN.ID1 ---
Date of Service
Date of Service: August 06, 2023
Today's Communication
Continue abx.
Assessment / Plan
Complicated urinary tract infection
Urinary retention
Suspected bilateral pyelonephritis
Leukocytosis
Stage IV sacral ulceration
- s/p debridement (08/02/23)
Hx CVA
Seizure disorder
Functional paraplegia
Recommendations:
Blood cultures no growth. Urine culture with multiple organisms.
Leukocytosis improved.
Continue Augmentin 875 mg PO BID through 08/15/23
Local care to the sacral wound.
Given overall frailty and current bedbound nature, healing will be difficult, with overall outlook very guarded, even with optimization of underlying conditions.
Significant need for good nutrition and offloading stressed to .
����������������������������������������������������������
Chief Complaint
-: UTI and Other (Sacral wound)
Subjective / Review of Systems
Patient seen and examined. VAC removed earlier today secondary to bloody drainage.
Review of Systems: No Fever and No Chills
Vital Signs / Physical Exam
Vital Signs
Vital Signs
Temp Pulse Resp BP Pulse Ox
98.2 F 81 16 124/80 99
08/06/23 07:00 08/06/23 09:02 08/06/23 07:00 08/06/23 09:02 08/06/23 07:00
Physical Exam
Constitutional: No Acute Distress, Comfortable, Chronically Ill and Non-toxic
Eyes: Sclera Anicteric
Pulmonary: Clear and Non Labored
Gastrointestinal: Non Distended
Extremities: Edema, Cyanosis and Erythema
Wound: Other (Dressing in place. VAC removed.)
Neurological: Awake and Alert
Psychological: Calm and Confused
Objective Data
Lab Data
Lab Results
08/06/23 07:01
08/06/23 07:01
Estimated Creat Clear 59 ml/min 08/06/23 07:01
Lactic Acid Cancelled 08/01/23 14:35
Total Bilirubin 0.6 mg/dl (0.2-1.3) 08/01/23 08:20
AST 23 U/L (14-36) 08/01/23 08:20
ALT 18 U/L (0-35) 08/01/23 08:20
Alkaline Phosphatase 100 U/L (38-126) 08/01/23 08:20
Most recent labs reviewed.
Micro Results:
07/31/23 21:42 Blood Culture - Final
Blood/Venous No Growth - Final Report
07/31/23 21:33 Blood Culture - Final
Blood/Venous No Growth - Final Report
08/02/23 12:45 Tissue Culture - Final
Other-Please specify - Other Escherichia coli
Proteus mirabilis
Enterococcus faecalis
Viridans Streptococcus Group
Gram Stain - Final
08/02/23 12:45 Anaerobic Culture - Preliminary
Buttock Culture pending. Anaerobic cultures are examined after 3
days incubation. Additional information to follow.
08/02/23 12:45 Wound Culture - Preliminary
Buttock Escherichia coli
Viridans Streptococcus Group
Gram Stain - Preliminary
07/31/23 21:21 Urine Culture - Final
Urine
Decub ulcer culture
1. Escherichia coli
M.I.C. RX
--------- ---
Amoxicillin/Potas. Clavulanate <=8/4 S
Ampicillin <=8 S
Ampicillin/Sulbactam <=8/4 S
Cefazolin <=2 S
Ertapenem <=0.5 S
Ciprofloxacin <=0.25 S
Gentamicin <=4 S
Levofloxacin <=0.5 S
Meropenem <=1 S
Piperacillin/Tazobactam <=16 S
Tobramycin <=4 S
Trimethoprim/Sulfamethoxazole <=2/38 S
2. Proteus mirabilis
M.I.C. RX
--------- ---
Amoxicillin/Potas. Clavulanate <=8/4 S
Ampicillin <=8 S
Ampicillin/Sulbactam <=8/4 S
Cefazolin <=2 S
Ertapenem <=0.5 S
Ciprofloxacin <=0.25 S
Gentamicin <=4 S
Levofloxacin <=0.5 S
Meropenem <=1 S
Piperacillin/Tazobactam <=16 S
Tobramycin <=4 S
Trimethoprim/Sulfamethoxazole <=2/38 S
Imaging:
07/31/23 CT abdomen/pelvis with IV contrast: Findings are suspicious for bilateral pyelonephritis. The bladder is decompressed with a Gabriel catheter, but appears thickened suggesting cystitis. Diffuse anasarca with sacral decubitus ulcer which abuts
the inferior sacrum. No gross evidence for osteomyelitis. There is degenerative changes of both hips with sclerosis of both femoral heads which may represent degenerative changes with avascular necrosis also in the differential. Please see full
dictation for additional detail.
[2023-08-06] MEDS: ROXICODONE 5 MG PO (11:48)
--- NOTE | 2023-08-06 13:28 | W.PN.HOSP.TC ---
Today's Communication/Plan
-
see note
hold tonight, possible discharge tomorrow
Assessment / Plan
Assessment / Plan
CT a/p
1. Findings suspicious for bilateral pyelonephritis. The bladder is decompressed with Gabriel catheter but appears thickened suggesting also a cystitis.
2. 15 x 9 mm hypodense lesion within the pancreatic head which may represent a cyst or intraductal mucinous neoplasm. No significant dilatation of the pancreatic duct.
3. Diffuse anasarca with sacral decubitus ulcer which abuts the inferior sacrum. No gross evidence for osteomyelitis.
4. Degenerative changes of both hips with sclerosis of both femoral heads which may represent degenerative change with avascular necrosis also within differential.
5. Additional findings above.

1. Pyelonephritis
Persistent UTI
Sepsis - POA
-CT a/p showing bilateral pyelonephritis with possible cystitis as well
-Patient was just recently discharged from [facility] after treatment of UTI. No cultures available from from that visit
-Urine culture growing mixed tad - discussed with labs and have 3 gram neg, one gram positive cocci and bacilli, Discussed with ID for any further need of identification.
-Unasyn changed to Augmentin BID through 08/15/23
2. Stage IV decubitus ulcer
-Located on superior right posterior iliac spine area
-Pelvic x-ray did not show any bone destruction
-Wound care evaluated, the necrotic eschar on the ulcer base
-General surgery did debridement of the area on 08/01
-Intra operative culture growing strep viridans, Ecoli, proteus and Entero-coccus.
-Patient was bleeding at debridement site in morning, wound vac removed and was packed by RN
-Morning Eliquis on hold.
-General surgery help requested to evaluate and can be placed by wound VAC if appropriate
3. H/o of recurrent CVA
-Patient on dysphagia diet
-Wheelchair-bound and requires assistance
4. Acute blood loss anemia
-from surgical blood loss
-Hemoglobin stable s/p 1 unit of PRBC transfusion
5. Hypokalemia
-replace today with 40meq K
6. R heel stage 3 pressure injury
L lateral knee and L lateral ankle with healing stage 2 pressure injuries
R medical ankle small stage 1 pressure injury
-All present at admission, cook school cafeteria following
7. Urinary retention - presumed chronic
-Gabriel catheter was placed and discontinued this admit
-Unfortunately patient continued to retain and repeat Gabriel has been placed
-Patient will need to f/u with urology in office for voiding trial
8. PE
-Diagnosed for small PE in July 14
-Discussed with daughter that may need to hold Eliquis for 48-72 hours with debridement site bleeding
Normocytic anemia
Metabolic acidosis
Reactive thrombocytosis
Hyperlipidemia
h/o of seizure
Depression
DVT Px: chr Eliquis
Code: DNR per at bed side
Discussed with spouse at bedside -
Anticipated Discharge: Within 24 hours
Subjective/Interval History
-
Date of Service: August 06, 2023
bleeding at the debridement site, need to be packed and has stopped now
no other issues
Objective Data
-
Labs:
Laboratory Results
08/06/23
07:01
WBC 11.4 H
Hgb 9.1 L
Hct 26.7 L
Plt Count 645 H
Sodium 138
Potassium 3.9 D
Chloride 108 H
Carbon Dioxide 26
BUN 7
Creatinine 0.4 L
Glucose 72
Calcium 7.7 L
Vital Signs:
Vital Signs
Temp Pulse Resp BP Pulse Ox
99.1 F 93 14 114/57 99
08/06/23 11:00 08/06/23 11:00 08/06/23 11:00 08/06/23 11:00 08/06/23 11:00
I&O
08/05/23 08/06/23 08/07/23
06:59 06:59 06:59
Intake Total 760 / 760 280 / 280
Output Total 900 / 900 1175 / 1175
Balance -140 / -140 -895 / -895
Review of Systems
-
Respiratory: Reports No Symptoms
Cardiac: Reports No Symptoms
Abdomen/GI: Reports No Symptoms
Physical Exam
-
General: No Apparent Distress and Comfortable
HEENT: Negative Oxygen
Skin: Other (Left pelvic ulcer site, packed)
Neuro: Awake, Alert and Oriented
Psych: Calm
[2023-08-06] MEDS: ProAmatine 10 MG PO (16:27)
[2023-08-06] MEDS: REMERON 7.5 MG PO (20:35)
[2023-08-07] VITALS (14 sets, daily range): BP systolic 98–156; BP diastolic 54–78; BMI 16.1
[2023-08-07 08:00] LABS: Mean Corp Hgb Conc. 34.9 g/dL (33.0-37.0); Mean Corpuscular Hgb 29.2 pg (27.0-31.0); Mean Corpuscular Volume 83.7 fL (81.0-99.0); Mean Platelet Volume 9.4 fL (7.4-10.4); Platelet Count 560 10^3/uL (130-400); Red Blood Cell Count 2.09 10^6/uL (4.20-5.40); White Blood Cell Count 14.7 10^3/uL (4.8-10.8)
[2023-08-07 08:07] LABS: Hematocrit 17.5 % (37.0-47.0); Hemoglobin 6.1 g/dL (12.0-16.0)
[2023-08-07] MEDS: ASPIR LOW (ENTERIC COATED) 81 MG PO (08:30)
[2023-08-07] MEDS: PLAQUENIL PO ×2 (08:30→08:57)
[2023-08-07] MEDS: ProAmatine 10 MG PO (08:30)
[2023-08-07] MEDS: AUGMENTIN 875 MG/125 MG PO ×2 (08:31→08:56)
[2023-08-07] MEDS: KEPPRA PO ×2 (08:31→08:57)
[2023-08-07] MEDS: LIPITOR PO ×2 (08:31→08:57)
[2023-08-07] MEDS: ROXICODONE 5 MG PO (08:37)
[2023-08-07 08:59] LABS: Blood Urea Nitrogen 18 mg/dl (7-17); Calcium 7.8 mg/dl (8.4-10.2); Carbon Dioxide 22 mmol/L (22-30); Chloride 108 mmol/L (98-107); Estimated Creatinine Clearance 35 ml/min; Glucose 87 mg/dl (70-99); Potassium 4.5 mmol/L (3.5-5.1); Sodium 137 mmol/L (135-145); eGFR > 60.00
[2023-08-07] MEDS: NSS 1000 IV ×2 (09:37→19:57)
[2023-08-07] MEDS: KEPPRA 500 MG IV ×2 (09:37→20:01)
[2023-08-07] MEDS: ZOFRAN 4 MG IV (09:37)
--- NOTE | 2023-08-07 10:27 | W.PN.GS2 ---
Today's Communication / Plan
-
KUB.
2 units of packed red blood cells ordered. Repeat CBC for this evening.
If able to tolerate it we will do a mag citrate prep.
Plan for surgery possibly tomorrow
Assessment / Plan
-
Patient is a 67 yo F p/w UTI and pyelonephritis with a decubitus ulcer. s/p Excisional debridement of sacral decubitus pressure ulcer on 08/02/2023. Doing well, expected postoperative course. Initially patient and family not interested in diverting
colostomy however they have changed her mind.
Wound packed with calcium alginate and covered with gauze. Change twice daily.
Will plan for laparoscopic diverting colostomy, possibly tomorrow.
Type and cross 2 units of packed red blood cells ordered.
Patient had a small volume of emesis after rounds today, KUB ordered.
If no overt pathology to we will move forward with mag citrate prep, clear liquid diet, n.p.o. at midnight.
Continue holding Eliquis.
Will get stoma nurses to mervat the patient in the morning.
All questions answered.
Time Spent
Total Time Spent with Patient (in minutes): 20
Subjective Data
-
Date of Service: August 07, 2023
Interval Events:
General surgery reconsulted yesterday for evaluation of the sacral wound. There was a fair amount of bleeding in her wound VAC yesterday so that it was taken down. There was some diffuse raw surface oozing from the wound likely secondary to her
restarting Eliquis. This was controlled with pressure. We did discuss yesterday diverting colostomy with her and the family and all were in agreement. She was reevaluated today, no acute events overnight. She does states that she is still
interested in a diverting colostomy. Tolerating diet.
Objective Data
-
Intake and Output
06/15/24 06/16/24 06/17/24
06:59 06:59 06:59
Intake Total 280 / 280 860 / 860
Output Total 1175 / 1175 425 / 425
Balance -895 / -895 435 / 435
Intake:
Oral fluids 280 / 280 860 / 860
Output:
Urine, Gabriel 775 / 775 425 / 425
Urine, Voided 400 / 400
Other:
Number of unmeasured liquid
stools
Rectum 1
Vital Signs
Temp Pulse Resp BP Pulse Ox
98.8 F 104 16 98/65 99
08/07/23 06:55 08/07/23 08:30 08/07/23 06:55 08/07/23 08:30 08/07/23 06:55
Lab Results
08/07/23 07:54
08/07/23 08:33
Calcium 7.8 mg/dl (8.4-10.2) L 08/07/23 08:33
Total Bilirubin 0.6 mg/dl (0.2-1.3) 08/01/23 08:20
AST 23 U/L (14-36) 08/01/23 08:20
ALT 18 U/L (0-35) 08/01/23 08:20
Alkaline Phosphatase 100 U/L (38-126) 08/01/23 08:20
Total Protein 5.0 g/dl (6.3-8.2) L 08/01/23 08:20
Albumin 2.0 g/dl (3.5-5.0) L 08/01/23 08:20
Physical Exam
-
GENERAL/NEURO: Awake, Alert, no distress
CHEST: Unlabored breathing on RA
ABDOMEN: Soft, Non-Tender, Non-Distended, thin/cachectic
Buttock: She has a stage III sacral decubitus ulcer over her right ischial tuberosity
[2023-08-07] MEDS: UNASYN IV ×2 (11:35→19:58)
[2023-08-07] MEDS: CITROMA 300 ML PO (11:39)
--- NOTE | 2023-08-07 12:05 | W.PN.HOSP.TC ---
Today's Communication/Plan
-
see note
Assessment / Plan
Assessment / Plan
CT a/p
1. Findings suspicious for bilateral pyelonephritis. The bladder is decompressed with Gabriel catheter but appears thickened suggesting also a cystitis.
2. 15 x 9 mm hypodense lesion within the pancreatic head which may represent a cyst or intraductal mucinous neoplasm. No significant dilatation of the pancreatic duct.
3. Diffuse anasarca with sacral decubitus ulcer which abuts the inferior sacrum. No gross evidence for osteomyelitis.
4. Degenerative changes of both hips with sclerosis of both femoral heads which may represent degenerative change with avascular necrosis also within differential.
5. Additional findings above.

1. Pyelonephritis
Persistent UTI
Sepsis - POA
-CT a/p showing bilateral pyelonephritis with possible cystitis as well
-Patient was just recently discharged from [facility] after treatment of UTI. No cultures available from from that visit
-Urine culture growing mixed tad - discussed with labs and have 3 gram neg, one gram positive cocci and bacilli, Discussed with ID for any further need of identification.
-Unasyn was changed to Augmentin BID through 08/15/23 but today needed to be given Unasyn again as patient cannot tolerate oral meds
2. Stage IV decubitus ulcer
Acute blood loss anemia
-Located on superior right posterior iliac spine area
-Pelvic x-ray did not show any bone destruction
-Wound care evaluated, the necrotic eschar on the ulcer base
-General surgery did debridement of the area on 08/01
-Intra operative culture growing strep viridans, Ecoli, proteus and Entero-coccus.
-Patient started having bleeding from debridement site from yesterday, hemoglobin dropped to 6.1 today 2 unit PRBC ordered
-General surgery discussed with family and now agreeable to get diverting colostomy tomorrow, unfortunately patient had vomiting in the morning and may not able to tolerate colon prep
3. H/o of recurrent CVA
-Patient on dysphagia diet
-Wheelchair-bound and requires assistance
4. Lethargy/Fatigue
-Patient is more lethargic although waking up on verbal cue
-Hemoglobin 6.1 and lethargic from that. SBP in 100s, which has been patient's normal
-Discussed with RN to provide blood.
-May need to hold oxycodone if true encephalopathy develops
5. Hypokalemia
-replace today with 40meq K
6. R heel stage 3 pressure injury
L lateral knee and L lateral ankle with healing stage 2 pressure injuries
R medical ankle small stage 1 pressure injury
-All present at admission, general education professor following
7. Urinary retention - presumed chronic
-Gabriel catheter was placed and discontinued this admit
-Unfortunately patient continued to retain and repeat Gabriel has been placed
-Patient will need to f/u with urology in office for voiding trial
8. PE
-Diagnosed for small PE in July 14
-Discussed with daughter that may need to hold Eliquis for 48-72 hours with debridement site bleeding
Normocytic anemia
Metabolic acidosis
Reactive thrombocytosis
Hyperlipidemia
h/o of seizure
Depression
DVT Px: chr Eliquis
Code: DNR per at bed side
Discussed with spouse at bedside [id number]
Discussed with General Surgery
Total time spent : 52 mins
I personally saw and examined the patient.
I have reviewed all diagnostic interpretations and treatment plans as written.
Time includes patient management by me, time spent at the patients bedside, time to review lab and imaging results, discussing patient care, documentation in the medical record, and time spent with the family or caregiver and discussing care plan
with RN/Consultants.
Anticipated Discharge: > 48 hours
Subjective/Interval History
-
Date of Service: August 07, 2023
Patient resting comfortably in bed
Denies having any dizziness
Did have 1 episode of vomiting in the morning, no abdominal pain/diarrhea
Objective Data
-
Labs:
Laboratory Results
08/07/23 08/07/23 08/07/23
07:54 08:33 16:00
WBC 14.7 H
Hgb 6.1 L* D Pending
Hct 17.5 L* Pending
Plt Count 560 H
Sodium Cancelled 137
Potassium Cancelled 4.5
Chloride Cancelled 108 H
Carbon Dioxide Cancelled 22
BUN Cancelled 18 H
Creatinine Cancelled 1.0
Glucose Cancelled 87
Calcium Cancelled 7.8 L
Vital Signs:
Vital Signs
Temp Pulse Resp BP Pulse Ox
98.5 F 80 12 101/60 100
08/07/23 11:00 08/07/23 11:00 08/07/23 11:00 08/07/23 11:00 08/07/23 11:00
I&O
08/06/23 08/07/23 08/08/23
06:59 06:59 06:59
Intake Total 280 / 280 860 / 860
Output Total 1175 / 1175 425 / 425
Balance -895 / -895 435 / 435
Review of Systems
-
Respiratory: Reports No Symptoms
Cardiac: Reports No Symptoms
Abdomen/GI: Reports Nausea and Vomiting; Denies Abdominal Pain or Diarrhea
Physical Exam
-
General: No Apparent Distress and Comfortable
HEENT: Negative Oxygen
Respiratory: Clear to Auscultation
Cardiac: Regular Rhythm and S1/S2; Negative Murmur
GI: Soft, Nontender, Nondistended and Normal Bowel Sounds
Skin: Other (Left pelvic ulcer site, packed)
Neuro: Awake, Alert and Oriented
Psych: Calm
--- NOTE | 2023-08-07 13:29 | VATNOTE ---
Attempted to place midline. Left brachial shaheed accessed without difficulties but unable to advance the guide wire. Right cephalic vein accessed and unable to advance the guide wire. 2 Peripheral sites obtained. Primary RN made aware.
[2023-08-07] MEDS: ProAmatine PO ×2 (13:34→18:17)
[2023-08-07] MEDS: SILVER NITRATE APPLICATOR 1 EACH TOPICAL (14:10)
--- NOTE | 2023-08-07 16:30 | W.PN.UPDATE ---
Update Note
Progress Note Update
S: Patient seen and examined at bedside with nursing staff given frequent dressing changes to sacral wound d/t large amounts of bleeding. Also very minimal dark urine from parker. MM Dry. Poor PO intake.
B: POD #5 I&D of sacral decub. Hb 6.1 this am and receiving pRBC's x2 units with repeat level pending. On IVF at 500ml/hr
A/R: Dressing removed and several small areas of nonpulsatile oozing noted to base of wound medially and around distal and right edges. Silver nitrate applied to these areas and wound packed with Surgifoam. Leave Surgifoam in place overnight, change
outer dressing as needed for reinforcement or if become soiled. D/C Dakin's. Wound care orders updated. IVF bolus of 500ml ordered x1.
[2023-08-07] MEDS: NSS 500 IV (17:09)
--- NOTE | 2023-08-07 20:00 | PTCARENOTE ---
Mag citrate ordered 08/06 at 0822 but patient unable to tolerate oral intake; Dayshift scanned bottle but did not administer.
[2023-08-07] MEDS: PLAQUENIL 200 MG PO (20:02)
[2023-08-07 20:53] LABS: Hemoglobin 9.3 g/dL (12.0-16.0)
[2023-08-07] MEDS: REMERON 7.5 MG PO (21:50)
[2023-08-08] VITALS (12 sets, daily range): BP systolic 107–141; BP diastolic 53–70; BMI 16.6
[2023-08-08] MEDS: UNASYN IV ×3 (03:13→20:07)
[2023-08-08 06:06] LABS: Hematocrit 25.4 % (37.0-47.0); Hemoglobin 8.8 g/dL (12.0-16.0); Mean Corp Hgb Conc. 34.6 g/dL (33.0-37.0); Mean Corpuscular Hgb 30.7 pg (27.0-31.0); Mean Corpuscular Volume 88.5 fL (81.0-99.0); Mean Platelet Volume 9.2 fL (7.4-10.4); Platelet Count 398 10^3/uL (130-400); Red Blood Cell Count 2.87 10^6/uL (4.20-5.40); Red Cell Dist. Width 15.7 % (11.5-14.5); White Blood Cell Count 14.9 10^3/uL (4.8-10.8)
--- NOTE | 2023-08-08 06:06 | PTCARENOTE ---
Order to remove parker catheter today at 0600. Per hospitalist 08/06 report, '7. Urinary retention - presumed chronic -Parker catheter was placed and discontinued this admit -Unfortunately patient continued to retain and repeat Parker has been placed
-Patient will need to f/u with urology in office for voiding trial' Parker catheter remains. This RN will pass along to oncoming RN.
[2023-08-08 06:34] LABS: Blood Urea Nitrogen 20 mg/dl (7-17); Calcium 7.6 mg/dl (8.4-10.2); Carbon Dioxide 21 mmol/L (22-30); Chloride 112 mmol/L (98-107); Estimated Creatinine Clearance 33 ml/min; Glucose 67 mg/dl (70-99); Potassium 3.9 mmol/L (3.5-5.1); Sodium 139 mmol/L (135-145); eGFR 55.76
[2023-08-08] MEDS: NSS 1000 IV (08:29)
[2023-08-08] MEDS: LIPITOR 80 MG PO (08:50)
[2023-08-08] MEDS: PLAQUENIL 200 MG PO ×2 (08:50→20:05)
[2023-08-08] MEDS: ProAmatine PO ×3 (08:50→17:57)
[2023-08-08] MEDS: ASPIR LOW (ENTERIC COATED) 81 MG PO (08:50)
[2023-08-08] MEDS: KEPPRA 500 MG IV ×2 (08:51→20:04)
--- NOTE | 2023-08-08 08:52 | W.PN.HOSP.TC ---
Addendum entered and electronically signed by Elly Pickering MD 08/08/23 19:22:
Did not physically see patient as she was in the operating room--agree with plan set forth after discussing with Dr. Anderson
Stage IV decubitus ulcer-- Pelvic x-ray did not show any bone destruction-- necrotic eschar on the ulcer base, S/p debridement on 08/02/2023, multiple organisms from wound cultured, bleeding post debridement with acute blood loss anemia--hgb 6.1 s/p
3 units pRBC in total--apprec wound care--for diverting colostomy--apprec gen surgery--apprec ID--cont unasyn
Pyelonephritis/UTI/sepsis--CT a/p showing bilateral pyelonephritis with possible cystitis as well--Urine culture growing mixed tad -apprec ID--cont unasyn--Blood culture�no growth--Patient could not tolerate oral medications--WBC 14.9 today--Trend
CBC
H/o of recurrent CVA/seizures--Patient on dysphagia diet--Wheelchair-bound and requires assistance--Continue Keppra
Hypokalemia--Resolved
Urinary retention - presumed chronic--Gabriel catheter was placed and discontinued this admit--Unfortunately patient continued to retain and repeat Gabriel has been placed--Patient will need to f/u with urology in office for voiding trial
H/O of PE--Diagnosed for small PE in July 14--Discussed with daughter that may need to hold Eliquis for 48-72 hours with debridement site bleeding
Anemia--due to acute blood loss--S/p PRBC--8.8 today
Hyperlipidemia--Continue atorvastatin
Depression--Continue mirtazapine
DVT Px: Eliquis on hold
code status -- DNR
Original Note:
Today's Communication/Plan
-
Diverting colostomy today.
Assessment / Plan
Assessment / Plan
Assessment:
67-year-old, female, Ms. Ashley admitted for complicated UTI with bilateral pyelonephritis and cystitis, chronic urinary retention on Gabriel. She had stage IV sacral decubitus ulcer, s/p debridement on 08/02/2023. Bleeding noticed on the debridement
site with hemoglobin dropping down to 6.1 on 08/07/2023. She was transfused with 2 PRBC and hemoglobin trending back to 8.8. General surgery consultation�plan on diverting colostomy.
Impression:
Stage IV sacral decubitus ulcer
Pyelonephritis/UTI/sepsis
History of recurrent CVA/seizures
Hypokalemia
Urinary retention
Anemia
History of PE
Hyperlipidemia
Depression
Plan:
# Stage IV decubitus ulcer
Pelvic x-ray did not show any bone destruction
Wound care evaluated, the necrotic eschar on the ulcer base
S/p debridement on 08/02/2023
Bleeding from the debridement site, hemoglobin 6.1
Transfused with 2 PRBC
Hemoglobin today 8.8
General surgery consult�patient signed consent for diverting colostomy today
# Pyelonephritis/UTI/sepsis
CT a/p showing bilateral pyelonephritis with possible cystitis as well
Urine culture growing mixed tad
ID on board
Blood culture�no growth
Wound culture�E. coli, Proteus, Enterococcus faecalis, Streptococcus viridans
Unasyn was changed to Augmentin BID
Patient could not tolerate oral medications
Switched back to Unasyn
WBC 14.9 today
Trend CBC
#H/o of recurrent CVA/seizures
Patient on dysphagia diet
Wheelchair-bound and requires assistance
Continue Keppra
#Hypokalemia
Resolved
Trend CMP
#Urinary retention - presumed chronic
Gabriel catheter was placed and discontinued this admit
Unfortunately patient continued to retain and repeat Gabriel has been placed
Patient will need to f/u with urology in office for voiding trial
# H/O of PE
Diagnosed for small PE in July 14
Discussed with daughter that may need to hold Eliquis for 48-72 hours with debridement site bleeding
# Anemia
Normocytic
Possibly due to acute blood loss
S/p PRBC
8.8 today
#Hyperlipidemia
Continue atorvastatin
#Depression
Continue mirtazapine
DVT Px: Eliquis on hold
Anticipated Discharge: 24 - 48 hours
Subjective/Interval History
-
Date of Service: August 08, 2023
No acute overnight events. Patient consented for diverting colostomy today.
Objective Data
-
Labs:
Laboratory Results
08/07/23 08/08/23
20:48 05:49
WBC 14.9 H
Hgb 9.3 L D 8.8 L
Hct 26.0 L 25.4 L
Plt Count 398 D
Sodium 139
Potassium 3.9
Chloride 112 H
Carbon Dioxide 21 L
BUN 20 H
Creatinine 1.1 H
Glucose 67 L
Calcium 7.6 L
Vital Signs:
Vital Signs
Temp Pulse Resp BP Pulse Ox
99.1 F 77 16 117/59 100
08/08/23 07:05 08/08/23 07:05 08/08/23 07:05 08/08/23 07:05 08/08/23 07:05
I&O
08/07/23 08/08/23 08/09/23
06:59 06:59 06:59
Intake Total 860 / 860 1580 / 1580
Output Total 425 / 425 100 / 100
Balance 435 / 435 1480 / 1480
Review of Systems
-
All other systems: Reviewed and negative (As per HPI)
Physical Exam
-
General: Comfortable, Cachectic and Other (appears frail)
HEENT: Normocephalic and Atraumatic
Respiratory: Clear to Auscultation
Cardiac: S1/S2
GI: Soft, Nontender, Nondistended and Normal Bowel Sounds
Skin: Decubitus Ulcers (Stage III sacral decubitus ulcer, covered with Surgifoam)
Neuro: Awake, Alert, Oriented and AO x 3
--- NOTE | 2023-08-08 09:23 | W.PN.GS2 ---
Today's Communication / Plan
-
NPO for OR later today
Assessment / Plan
-
Patient is a 67 yo F with h/o CVA and functional quadriplegia p/w UTI and pyelonephritis with a decubitus ulcer. s/p Excisional debridement of sacral decubitus pressure ulcer on 08/02/2023, vac initially applied but had to be removed d/t extensive
bleeding from wound. Silver nitrate and Surgifoam utilized at bedside with good effect.
emesis on 08/06: KUB without obstruction
H/H stable s/p 2 units PRBC's on 08/06
Wound healing will be difficult as she is incontinent of bowel. Initially patient and family not interested in diverting colostomy however they have changed her mind. Plan for diverting ostomy today.
--Local wound care, will reassess wound in OR
--Tentative OR today for diverting ostomy
--Continue holding Eliquis.
--Asked stoma nurses to mervat the patient this morning.
All questions answered.
Subjective Data
-
Date of Service: August 08, 2023
Patient seen and examined at bedside with Dr. Kelly. More alert today, denies active complaints agreeable to proceed with diverting ostomy.
Objective Data
-
Intake and Output
08/07/23 08/08/23 08/09/23
06:59 06:59 06:59
Intake Total 860 / 860 1580 / 1580
Output Total 425 / 425 100 / 100
Balance 435 / 435 1480 / 1480
Intake:
Oral fluids 860 / 860 0 / 0
IV fluids (Total) 960 / 960
IV piggybacks 120 / 120
Blood Product Amount Infused ( 500 / 500
mL)
Packed Rbc Leukoreduced Unit 250 / 250
[id number]
Packed Rbc Leukoreduced Unit 250 / 250
[id number]
Output:
Urine, Gabriel 425 / 425 100 / 100
Other:
Number of unmeasured liquid
stools
Rectum 1 1
Vital Signs
Temp Pulse Resp BP Pulse Ox
99.1 F 77 16 117/59 100
08/08/23 07:05 08/08/23 07:05 08/08/23 07:05 08/08/23 07:05 08/08/23 07:05
Lab Results
08/08/23 05:49
08/08/23 05:49
Calcium 7.6 mg/dl (8.4-10.2) L 08/08/23 05:49
Total Bilirubin 0.6 mg/dl (0.2-1.3) 08/01/23 08:20
AST 23 U/L (14-36) 08/01/23 08:20
ALT 18 U/L (0-35) 08/01/23 08:20
Alkaline Phosphatase 100 U/L (38-126) 08/01/23 08:20
Total Protein 5.0 g/dl (6.3-8.2) L 08/01/23 08:20
Albumin 2.0 g/dl (3.5-5.0) L 08/01/23 08:20
Physical Exam
-
GENERAL/NEURO: Awake, Alert, no distress
CHEST: Unlabored breathing on RA
ABDOMEN: Soft, Non-Tender, Non-Distended, thin/cachectic
RIGHT BUTTOCK: Dressing intact
--- NOTE | 2023-08-08 09:57 | W.PN.ID1 ---
Date of Service
Date of Service: August 08, 2023
Today's Communication
Continue Unasyn for today.
Assessment / Plan
Complicated urinary tract infection
Hx Urinary retention
Suspected bilateral pyelonephritis
Leukocytosis
Stage IV sacral ulceration
- s/p debridement (08/02/23)
Hx CVA
Seizure disorder
Functional paraplegia
Recommendations:
Blood cultures no growth. Initial urine culture with multiple organisms.
Etiology of leukocytosis over past 48 hours not clear.
Gabriel catheter in place and urine at present appears clear and on turbid.
Continue with local care to the sacral wound.
Given overall frailty and current bedbound nature, healing will be difficult, with overall outlook very guarded, even with optimization of underlying conditions.
Patient for diverting colostomy today.
Significant need for good nutrition and offloading stressed to .
����������������������������������������������������������
Chief Complaint
-: UTI and Other (Sacral wound)
Subjective / Review of Systems
Patient seen and examined. No specific complaints today. Antibiotics transitioned from p.o. route to IV route yesterday secondary to vomiting. Patient on schedule today for diverting colostomy.
Review of Systems: No Fever and No Chills
Vital Signs / Physical Exam
Vital Signs
Vital Signs
Temp Pulse Resp BP Pulse Ox
99.1 F 77 16 117/59 100
08/08/23 07:05 08/08/23 07:05 08/08/23 07:05 08/08/23 07:05 08/08/23 07:05
Physical Exam
Constitutional: No Acute Distress, Comfortable, Chronically Ill and Non-toxic
Cardiovascular: S1/S2; Negative S3/S4
Pulmonary: Non Labored
Gastrointestinal: Soft and Non Distended
Wound: Other (Sacral wound dressed.)
Neurological: Awake and Alert
Psychological: Calm
Objective Data
Lab Data
Lab Results
08/08/23 05:49
08/08/23 05:49
Estimated Creat Clear 33 ml/min 08/08/23 05:49
Lactic Acid Cancelled 08/01/23 14:35
Total Bilirubin 0.6 mg/dl (0.2-1.3) 08/01/23 08:20
AST 23 U/L (14-36) 08/01/23 08:20
ALT 18 U/L (0-35) 08/01/23 08:20
Alkaline Phosphatase 100 U/L (38-126) 08/01/23 08:20
Most recent labs reviewed.
Micro Results:
08/02/23 12:45 Wound Culture - Final
Buttock Escherichia coli
Viridans Streptococcus Group
Gram Stain - Final
08/02/23 12:45 Anaerobic Culture - Final
Buttock
07/31/23 21:42 Blood Culture - Final
Blood/Venous No Growth - Final Report
07/31/23 21:33 Blood Culture - Final
Blood/Venous No Growth - Final Report
08/02/23 12:45 Tissue Culture - Final
Other-Please specify - Other Escherichia coli
Proteus mirabilis
Enterococcus faecalis
Viridans Streptococcus Group
Gram Stain - Final
07/31/23 21:21 Urine Culture - Final
Urine
Decub ulcer culture
1. Escherichia coli
M.I.C. RX
--------- ---
Amoxicillin/Potas. Clavulanate <=8/4 S
Ampicillin <=8 S
Ampicillin/Sulbactam <=8/4 S
Cefazolin <=2 S
Ertapenem <=0.5 S
Ciprofloxacin <=0.25 S
Gentamicin <=4 S
Levofloxacin <=0.5 S
Meropenem <=1 S
Piperacillin/Tazobactam <=16 S
Tobramycin <=4 S
Trimethoprim/Sulfamethoxazole <=2/38 S
2. Proteus mirabilis
M.I.C. RX
--------- ---
Amoxicillin/Potas. Clavulanate <=8/4 S
Ampicillin <=8 S
Ampicillin/Sulbactam <=8/4 S
Cefazolin <=2 S
Ertapenem <=0.5 S
Ciprofloxacin <=0.25 S
Gentamicin <=4 S
Levofloxacin <=0.5 S
Meropenem <=1 S
Piperacillin/Tazobactam <=16 S
Tobramycin <=4 S
Trimethoprim/Sulfamethoxazole <=2/38 S
Imaging:
07/31/23 CT abdomen/pelvis with IV contrast: Findings are suspicious for bilateral pyelonephritis. The bladder is decompressed with a Gabriel catheter, but appears thickened suggesting cystitis. Diffuse anasarca with sacral decubitus ulcer which abuts
the inferior sacrum. No gross evidence for osteomyelitis. There is degenerative changes of both hips with sclerosis of both femoral heads which may represent degenerative changes with avascular necrosis also in the differential. Please see full
dictation for additional detail.
--- NOTE | 2023-08-08 10:23 | WOUNDNOTE ---
[facility] RN note: Patient stoma marked for colostomy. RUQ also stoma marked d/t better potential option d/t her contractures, torso anatomy, skin creases. Patient contracted and favors lying on her L side d/t sacral pressure injury. Lower quadrants small
and pouch does not lay well for gravity to drop stool to the bottom of pouch d/t leg contractures. LUQ stoma mervat (marked at 2nd choice) 4.4cm to L of midline and 1.3cm above umbilical line. RUQ stoma mervat 5cm to R of midline and 1.3cm above
umbilical line. Updated Sangita Vazquez via [employer] re: RUQ 1st choice if it's even an option. WON RN Belinda London came to assess cox and is in agreement with stoma cox. Patient's came to visit and discussed stoma cox with
and is aware she is nothing by mouth for surgery. Notified [employer] via [employer] of hospital rental stop bill date as of 08/06/23. If/when sacral vac is resumed, another hospital rental vac ulta can be obtained from [facility]. Home vac remains in
patient's room for now.
--- NOTE | 2023-08-08 16:49 | W.IMMPOSTOP ---
Surgical Immed Post Op Note
-
Primary Surgeon: Brian Kelly MD
Assisting Surgeon: None
Pre-op Diagnosis:
1. Nonhealing sacral decubitus ulcer
2. Incontinence
Post-op Diagnosis: Same
Procedure Performed:
1. Laparoscopic diverting end colostomy
2. Sacral wound debridement
Anesthesia Type: General
Specimen / Cultures: None
Estimated Blood Loss: 7 cc
Complications: None
Operative Findings: The abdomen was entered using an infraumbilical 5 mm port. The sigmoid colon was identified and traced proximally to the descending colon and then distally to the rectum. A suitable transection point was identified and divided
with a 60 purple load on Endo JUSTINA stapler. The proximal end of the stump was marked with clips. A right upper quadrant end sigmoid colostomy was then matured. After the procedure, the patient was rotated into the left lateral decubitus position
and her right sacral wound was evaluated. There was some residual necrotic tissue that was debrided and hemostasis was achieved.
POST OP PLAN:
Imaging: None
Labs: Routine AM
Diet: Okay for full liquid diet and supplements, advance as tolerated.
Analgesia: Tylenol 650mg q6 Rebeka, Nancy 5mg q6 PRN, Dilaudid 0.5mg q2h PRN
Neuro/vascular checks: q4h
AC/AP: Hold Therapeutic AC for 48 hours, please, clear with surgery before initiating.Ok for DVT PPx
Activity: Ad Arianne
Wound/Incisions/Drains: Routine ostomy care
Abx: Continue antibiotics
Dispo: RNF
--- NOTE | 2023-08-08 16:54 | OR.RPT ---
Operative Report
Operative Report
Patient Name: Ashley Bundy
: 1955
Date of Operation: 08/08/2023
Preoperative Diagnosis: Nonhealing sacral decubitus ulcer, fecal incontinence
Postoperative Diagnosis: Same
Procedure(s):
1. Laparoscopic diverting colostomy
2. Sacral wound debridement
Surgeon(s):
Dr. Kelly
Vp Project(s):
ILAN Campoverde
Anesthesia: General
Estimated Blood Loss: 7 cc
Urine Output: None
Drains/Lines/Implants: None
Specimens:
None
HPI/Surgical Indications:
This is a 67-year-old female with a history of CVA and functional paraplegia with incontinence who presented to our hospital for evaluation management of a sacral decubitus ulcer. Initially patient and family reluctant to get a diverting colostomy
however now agreeable. Risks/Benefits/Alternatives were discussed at length, and the patient agreed to proceed with surgery.
Operative Findings: The abdomen was entered using an infraumbilical 5 mm port. The sigmoid colon was identified and traced proximally to the descending colon and then distally to the rectum. A suitable transection point was identified and divided
with a 60 purple load on Endo JUSTINA stapler. The proximal end of the stump was marked with clips. A right upper quadrant end sigmoid colostomy was then matured. After the procedure, the patient was rotated into the left lateral decubitus position
and her right sacral wound was evaluated. There was some residual necrotic tissue that was debrided and hemostasis was achieved.
Procedure Description:
The patient was brought to the Operating Room and placed in the supine position with the arms by her side. IV antibiotics were infused and Venodyne stockings placed. Following uneventful induction of general endotracheal anesthesia, an orogastric
tube were placed. The abdomen was prepped and draped in the usual sterile fashion. The abdomen was entered using a Yuriy technique with a 5 mm trochar just below the umbilicus. Pneumoperitoneum to 12 mmHg pressure was obtained without difficulty
and we confirmed that no injury had occurred during our entry. We then placed a 12 mm port in the suprapubic area as well as a 5 mm port in the right upper quadrant. Patient was placed in a Trendelenburg position with the left side up and the
sigmoid colon was identified. This was traced proximally first to the descending colon and then run distally to confirm orientation to the rectum. We then identified a suitable transection point and a window was made in the sigmoid colon
mesentery. The bowel was then divided with a 60 JUSTINA purple load. There was some bleeding on the distal staple line so this was stopped using 5 mm titanium clips. This served to also mervat the proximal end of the colonic stump. A locking grasper
was then placed on the sigmoid colon and pneumoperitoneum was evacuated. The patient had been marked preoperatively by her stoma nurses who had identified due to her contractures as the right upper quadrant pain is the most suitable site for stoma
maturation. The anterior rectus sheath was identified and divided. The rectus muscle was split and the posterior rectus sheath was also divided in a similar fashion. The sigmoid colon was identified and grasped and brought onto the field. We
then briefly reestablished pneumoperitoneum and return to the abdomen to confirm proper orientation of the stoma. Pneumoperitoneum was then desufflated and the infraumbilical as well as suprapubic ports were closed with 0 PDS suture. All 3 ports
port sites were then closed with 4-0 Monocryl followed by Dermabond. We then turned our attention to maturation of the stoma which was done in a Bere like fashion. Given how thin she was I did put a few tacking sutures from the serosa of the
colon to the fascia at the 3 and 9 o'clock positions. Staple line was then excised and the stoma was matured in a Bere like fashion with interrupted 3-0 Vicryls. Stoma looked very healthy and pink. Ostomy was intubated and digits seem to pass
easily through the fascia aperture. A stoma appliance was placed over her ostomy.
We then turned our attention to the sacrum. The drapes were removed and the patient was rotated into the left lateral decubitus position. There was no bleeding but there was some skin that was excised as well as some necrotic tissue overlying
the sacrum which was excised. Hemostasis was achieved. The wound was then irrigated and then packed with Betadine soaked kerlix followed by Mepilex dressing,, concluding the procedure.
Counts were correct x 1. The patient tolerated the procedure very well and was transferred to the PACU for recovery in stable condition. I was the attending physician and performed the procedure with assistance from the DAMAGE APPRAISER above. I was present
for all portions of the case
Brian Kelly MD
--- NOTE | 2023-08-08 17:22 | CM ---
Patient for further surgery at this time. CM will discuss with family and review updated functional needs following surgery. Previously plan was for discharge home with [facility] and family supports with wound vac. CM will continue to follow for
discharge planning needs.
Plan; pending surgery; PT/OT assessment for clarification of level of care needs.
[2023-08-08] MEDS: NORMOSOL-R 1000 IV (17:28)
[2023-08-08] MEDS: NSS IV (17:28)
[2023-08-08] MEDS: REMERON 7.5 MG PO (22:35)
[2023-08-08] MEDS: TYLENOL 650 MG PO (22:38)
[2023-08-09] VITALS (7 sets, daily range): BP systolic 119–143; BP diastolic 61–76; PULSE 74; O2SAT 99; BMI 17.4
[2023-08-09] MEDS: UNASYN IV ×3 (03:20→20:16)
[2023-08-09 06:12] LABS: % Basophils 0.1 % (0-2); % Immature Granulocytes 0.9 % (0-0.5); % Lymphocytes 8.7 % (20.5-51.1); % Monocytes 4.2 % (1.7-9.3); % Neutrophils 86.1 % (42.2-75.2); Absolute Immature Granulocytes 0.1 10^3/uL (0-0.05); Absolute Lymphocytes 1.3 10^3/uL (1.2-3.4); Absolute Monocytes 0.6 10^3/uL (0.1-0.6); Absolute Neutrophils 12.7 10^3/uL (1.4-6.5); Hematocrit 24.1 % (37.0-47.0); Hemoglobin 8.2 g/dL (12.0-16.0); Mean Corpuscular Hgb 31.1 pg (27.0-31.0); Mean Corpuscular Volume 91.3 fL (81.0-99.0); Mean Platelet Volume 9.3 fL (7.4-10.4); Nucleated Red Blood Cells % 0 %; Platelet Count 380 10^3/uL (130-400); Red Blood Cell Count 2.64 10^6/uL (4.20-5.40); Red Cell Dist. Width 16.5 % (11.5-14.5); White Blood Cell Count 14.8 10^3/uL (4.8-10.8)
[2023-08-09] MEDS: NORMOSOL-R 1000 IV (06:33)
[2023-08-09 06:35] LABS: Blood Urea Nitrogen 16 mg/dl (7-17); Calcium 7.4 mg/dl (8.4-10.2); Carbon Dioxide 22 mmol/L (22-30); Chloride 112 mmol/L (98-107); Estimated Creatinine Clearance 48 ml/min; Glucose 64 mg/dl (70-99); Potassium 3.9 mmol/L (3.5-5.1); Sodium 141 mmol/L (135-145); eGFR > 60.00
--- NOTE | 2023-08-09 07:47 | W.PN.GS2 ---
Today's Communication / Plan
-
--Fulls with supplement shakes, possible regular diet this evening or tomorrow pending tolerance and ostomy function
--HLIV
--Pain control: Tylenol (DC rectal) and Oxycodone
--Local wound care, ostomy consult
--Continue holding Eliquis for 48 hours, Ok for DVT ppx
Assessment / Plan
-
Patient is a 67 yo F with h/o CVA and functional quadriplegia p/w UTI and pyelonephritis with a decubitus ulcer. s/p Excisional debridement of sacral decubitus pressure ulcer on 08/02/2023, VAC initially applied but had to be removed d/t extensive
bleeding from wound. S/p lap assisted end sigmoid colostomy on 08/08/2023.
H/H stable s/p 2 units PRBC's on 08/06, slight drift post-op
Recovering well, no major post-op concerns
--Fulls with supplement shakes, possible regular diet this evening or tomorrow pending tolerance and ostomy function
--HLIV
--Pain control: Tylenol (DC rectal) and Oxycodone
--Local wound care, ostomy consult
--Continue holding Eliquis for 48 hours, OK for DVT ppx
All questions answered.
Subjective Data
-
Date of Service: August 09, 2023
No complaints. Denies nausea or vomiting. No fevers. Pain well-controlled.
Objective Data
-
Intake and Output
08/08/23 08/09/23 08/10/23
06:59 06:59 06:59
Intake Total 1580 / 1580 2385 / 2385
Output Total 100 / 100 700 / 700
Balance 1480 / 1480 1685 / 1685
Intake:
Oral fluids 0 / 0 75 / 75
IV fluids (Total) 960 / 960 1950 / 1950
normosol 50 / 50
IV piggybacks 120 / 120 360 / 360
Blood Product Amount Infused ( 500 / 500
mL)
Packed Rbc Leukoreduced Unit 250 / 250
[id number]
Packed Rbc Leukoreduced Unit 250 / 250
[id number]
Output:
Urine, Gabriel 100 / 100 700 / 700
Other:
Number of unmeasured liquid
stools
Rectum 1 1
Vital Signs
Temp Pulse Resp BP Pulse Ox
97.4 F 69 18 125/62 98
08/09/23 03:36 08/09/23 03:36 08/09/23 03:36 08/09/23 03:36 08/09/23 03:36
Lab Results
08/09/23 04:57
08/09/23 04:57
Calcium 7.4 mg/dl (8.4-10.2) L 08/09/23 04:57
Total Bilirubin 0.6 mg/dl (0.2-1.3) 08/01/23 08:20
AST 23 U/L (14-36) 08/01/23 08:20
ALT 18 U/L (0-35) 08/01/23 08:20
Alkaline Phosphatase 100 U/L (38-126) 08/01/23 08:20
Total Protein 5.0 g/dl (6.3-8.2) L 08/01/23 08:20
Albumin 2.0 g/dl (3.5-5.0) L 08/01/23 08:20
Physical Exam
-
Gen: NAD
Abd: soft, appropriately tender, ND, non-peritoneal, incisions c/d/i - no erythema, ecchymosis or drainage, ostomy PPV - mild edema, flatus, no stool
[2023-08-09] MEDS: ASPIR LOW (ENTERIC COATED) 81 MG PO (08:31)
[2023-08-09] MEDS: KEPPRA 500 MG IV ×2 (08:31→20:17)
[2023-08-09] MEDS: LIPITOR 80 MG PO (08:31)
[2023-08-09] MEDS: ProAmatine PO ×3 (08:32→17:17)
[2023-08-09] MEDS: PLAQUENIL 200 MG PO ×2 (08:32→20:17)
--- NOTE | 2023-08-09 08:43 | CM ---
Patient seen at bedside. Patient states that she has not been here earlier. Patient plan is to return home with and daughter who are home with patient. Patient has her wheelchair in room and understood that PT/OT would come to see her.
Patient indicated that she wants to have [facility] restart when patient is discharged. CM will continue to follow for discharge planning needs.
Plan; home with [facility]; pending PT/OT assessment
--- NOTE | 2023-08-09 08:58 | W.PN.HOSP.TC ---
Addendum entered and electronically signed by Elly Pickering MD 08/09/23 17:35:
Patient seen and examined independently--agree with plan set forth by Dr. Anderson
GENERAL: chronically ill appearing female in no apparent distress
HEENT: NC/AT
HEART: regular rate and rhythm, +S1, +S2
LUNGS : clear to auscultation bilaterally
ABDOM: soft, nontender, nondistended, + bowel sounds--colostomy with air
EXT: no cyanosis, clubbing, or edema
NEUROLOGIC: seems chronically bedbound
: parker
SKIN: large sacral decub ulcer (reviewed wound picture)
Stage IV decubitus ulcer-- Pelvic x-ray did not show any bone destruction-- necrotic eschar on the ulcer base, S/p debridement on 08/02/2023, multiple organisms from wound cultured, bleeding post debridement with acute blood loss anemia--hgb 6.1 s/p
3 units pRBC in total--apprec wound care--s/p diverting colostomy, POD#1--apprec gen surgery--apprec ID, await recs for IV (likely) vs oral ABX--cont unasyn
Pyelonephritis/UTI/sepsis--CT a/p showing bilateral pyelonephritis with possible cystitis as well--Urine culture growing mixed tad -apprec ID--cont unasyn--Blood culture�no growth--Patient could not tolerate oral medications--WBC 14.9 today--Trend
CBC
H/o of recurrent CVA/seizures--Patient on dysphagia diet--Wheelchair bound and requires assistance--Continue Keppra
Hypokalemia--Resolved
Urinary retention - presumed chronic--Parker catheter was placed and discontinued this admit--Unfortunately patient continued to retain and repeat Parker has been placed--Patient will need to f/u with urology in office for voiding trial--would d/c
WITH parker
H/O of PE--Diagnosed for small PE in July 14--Discussed with daughter that may need to hold Eliquis for 48-72 hours with debridement site bleeding--restarting eliquis 08/09
Anemia--due to acute blood loss--S/p PRBC--8.8 today
Hyperlipidemia--Continue atorvastatin
Depression--Continue mirtazapine
DVT Px: Eliquis on hold
code status -- DNR
d/c planning
Original Note:
Today's Communication/Plan
-
.
Assessment / Plan
Assessment / Plan
Assessment:
67-year-old, female, Ms. Ramirez admitted for complicated UTI with bilateral pyelonephritis and cystitis, chronic urinary retention on Parker. She had stage IV sacral decubitus ulcer, s/p debridement on 08/02/2023. Bleeding noticed on the debridement
site with hemoglobin dropping down to 6.1 on 08/07/2023. She was transfused with 2 PRBC and hemoglobin trending back to 8.8. General surgery consultation�plan on diverting colostomy. Today is postoperative day 1 of diverting colostomy.
Impression:
S/p diverting colostomy
Stage IV sacral decubitus ulcer
Pyelonephritis/UTI/sepsis
History of recurrent CVA/seizures
Hypokalemia
Urinary retention
Anemia
History of PE
Hyperlipidemia
Depression
Plan:
# S/P diverting colostomy
Today is postoperative day 1
Diet�full with supplement shakes, regular diet this evening
Pain control with Tylenol
Local wound care
Hold Eliquis until tomorrow.
# Stage IV decubitus ulcer
Pelvic x-ray did not show any bone destruction
Wound care evaluated, the necrotic eschar on the ulcer base
S/p debridement on 08/02/2023
Bleeding from the debridement site, hemoglobin 6.1
Transfused with 2 PRBC
Hemoglobin today 8.8
General surgery consult�patient signed consent for diverting colostomy
# Pyelonephritis/UTI/sepsis
CT a/p showing bilateral pyelonephritis with possible cystitis as well
Urine culture growing mixed tad
ID on board
Blood culture�no growth
Wound culture�E. coli, Proteus, Enterococcus faecalis, Streptococcus viridans
Unasyn was changed to Augmentin BID
Patient could not tolerate oral medications
Switched back to Unasyn
WBC 14.8 today
Trend CBC
#H/o of recurrent CVA/seizures
Patient on dysphagia diet
Wheelchair-bound and requires assistance
Continue Keppra
#Hypokalemia
Resolved
Trend CMP
#Urinary retention - presumed chronic
Parker catheter was placed and discontinued this admit
Unfortunately patient continued to retain and repeat Parker has been placed
Patient will need to f/u with urology in office for voiding trial
# H/O of PE
Diagnosed for small PE in July 14
# Anemia
Normocytic
Possibly due to acute blood loss
S/p PRBC
8.2 today
#Hyperlipidemia
Continue atorvastatin
#Depression
Continue mirtazapine
DVT Px: Eliquis on hold, will resume from tomorrow
Anticipated Discharge: 24 - 48 hours
Subjective/Interval History
-
Date of Service: August 09, 2023
No acute postoperative concerns. Patient is recovering well.
As per nursing during PT assessment, patient was not able to feel sensations in her bilateral lower extremities.
When examined�her sensations were intact in both lower extremities, pedal pulses intact, motor examination normal.
Objective Data
-
Labs:
Laboratory Results
08/09/23
04:57
WBC 14.8 H
Hgb 8.2 L
Hct 24.1 L
Plt Count 380
Sodium 141
Potassium 3.9
Chloride 112 H
Carbon Dioxide 22
BUN 16
Creatinine 0.8
Glucose 64 L
Calcium 7.4 L
Vital Signs:
Vital Signs
Temp Pulse Resp BP Pulse Ox
98.2 F 81 18 143/76 97
08/09/23 07:05 08/09/23 08:32 08/09/23 07:05 08/09/23 08:32 08/09/23 07:05
I&O
08/08/23 08/09/23 08/10/23
06:59 06:59 06:59
Intake Total 1580 / 1580 2385 / 2385
Output Total 100 / 100 700 / 700
Balance 1480 / 1480 1685 / 1685
Review of Systems
-
All other systems: Reviewed and negative (As per HPI)
Physical Exam
-
General: No Apparent Distress and Comfortable
HEENT: Normocephalic and Atraumatic
Respiratory: Clear to Auscultation
Cardiac: S1/S2
GI: Soft, Nondistended, Tender (Appropriately tender) and Other (incisions c/d/i - no erythema, ecchymosis or drainage, ostomy - mild edema, flatus, no stool)
Skin: Decubitus Ulcers ((Stage III sacral decubitus ulcer, covered with Surgifoam)
Neuro: Awake, Alert and Oriented
[2023-08-09] MEDS: TYLENOL 650 MG PO ×2 (11:06→15:49)
--- NOTE | 2023-08-09 11:20 | WOUNDNOTE ---
WON RN NOTE: Followed up today s/p sacral debridement and Ostomy formation. RUQ stoma pink and budded for small amt of stool, no leaks. Nurse changing dressing, assessed wound and discussed plan with Dr. Estrada who recommended continue Dakin's WTD
dressings. Ostomy supplies ordered from [facility], nurse aware and will put them in rm. Had at bedside sign secure start form and faxed to [facility]. Gave Colostomy folder and reviewed with , encouraged to review. made aware that
next pouch change will be most likely Tuesday and will coordinate a time so that he will be available for teaching. Answered all questions and will follow.
--- NOTE | 2023-08-09 11:25 | WOUNDNOTE ---
ARTEMIO RN NOTE: Updated discharge instructions to include, once sacral wound 90% clean resume wound vac as previously ordered. Confirmed with Dr. Estrada. Patient will have VN upon discharge to home, per last CM note.
[2023-08-09] MEDS: ROXICODONE 2.5 MG PO (20:26)
[2023-08-09] MEDS: REMERON 7.5 MG PO (21:55)
--- NOTE | 2023-08-10 04:09 | DOWNTIME ---
There was a [employer] Downtime on 08/10/2023 from 0100 to 08/10/2023 at 0337. Downtime documentation of patient's care, including medication administrations, has been reconciled in the electronic record per guidelines. Refer to the
patient's paper chart under the miscellaneous tab to see printed paper medication records and downtime forms.
[2023-08-10] MEDS: UNASYN IV (04:27)
[2023-08-10 06:00] VITALS: BMI 18.2
--- NOTE | 2023-08-10 06:32 | W.PN.HOSP.TC ---
Addendum entered and electronically signed by Elly Pickering MD 08/10/23 18:20:
Patient seen and examined independently--agree with plan set forth by Dr. Anderson
GENERAL: chronically ill appearing female in no apparent distress
HEENT: NC/AT
HEART: regular rate and rhythm, +S1, +S2
LUNGS : clear to auscultation bilaterally
ABDOM: soft, nontender, nondistended, + bowel sounds--colostomy with air
EXT: no cyanosis, clubbing, or edema
NEUROLOGIC: seems chronically bedbound
: parker
SKIN: large sacral decub ulcer (reviewed wound picture)
Stage IV decubitus ulcer-- Pelvic x-ray did not show any bone destruction-- necrotic eschar on the ulcer base, S/p debridement on 08/02/2023, multiple organisms from wound cultured, bleeding post debridement with acute blood loss anemia--restarted
Eliquis--hgb 6.1 s/p 3 units pRBC in total--apprec wound care--s/p diverting colostomy, POD#2--apprec gen surgery--apprec ID oral ABX-- unasyn to Augmentin
Pyelonephritis/UTI/sepsis--CT a/p showing bilateral pyelonephritis with possible cystitis as well--Urine culture growing mixed tad -apprec ID-- unasyn to Augmentin--Blood culture�no growth--Patient could not tolerate oral medications
previously--WBC 14.9 today--Trend CBC
H/o of recurrent CVA/seizures--Patient on dysphagia diet--Wheelchair bound and requires assistance--Continue Keppra
Hypokalemia--Resolved
Urinary retention - presumed chronic--Parker catheter was placed and discontinued this admit--Unfortunately patient continued to retain and repeat Parker has been placed--Patient will need to f/u with urology in office for voiding trial--would d/c
WITH parker
H/O of PE--Diagnosed for small PE in July 14--Discussed with daughter that may need to hold Eliquis for 48-72 hours with debridement site bleeding--restarted eliquis 08/09
Anemia--due to acute blood loss--S/p PRBC--8.8 today
Hyperlipidemia--Continue atorvastatin
Depression--Continue mirtazapine
DVT Px: Eliquis on hold
code status -- DNR
spoke with family 08/08 re: possible SNF--CM aware--possible d/c Tuesday off IV abx on oral
Original Note:
Today's Communication/Plan
-
.
Assessment / Plan
Assessment / Plan
Assessment:
67-year-old, female, Ms. Ramirez admitted for complicated UTI with bilateral pyelonephritis and cystitis, chronic urinary retention on Parker. She had stage IV sacral decubitus ulcer, s/p debridement on 08/02/2023. Bleeding noticed on the debridement
site with hemoglobin dropping down to 6.1 on 08/07/2023. She was transfused with 2 PRBC and hemoglobin trending back to 8.8. General surgery consultation�plan on diverting colostomy. Today is postoperative day 2 of diverting colostomy.
Impression:
S/p diverting colostomy
Stage IV sacral decubitus ulcer
Pyelonephritis/UTI/sepsis
History of recurrent CVA/seizures
Hypokalemia
Urinary retention
Anemia
History of PE
Hyperlipidemia
Depression
Plan:
# S/P diverting colostomy
Today is postoperative day 2
on regular diet
Pain control with Tylenol
Local wound care
eliquis resumed
# Stage IV decubitus ulcer
Pelvic x-ray did not show any bone destruction
Wound care evaluated, the necrotic eschar on the ulcer base
S/p debridement on 08/02/2023
Bleeding from the debridement site, hemoglobin 6.1
Transfused with 2 PRBC
Hemoglobin today 8.8
General surgery consult�patient signed consent for diverting colostomy
wound care
# Pyelonephritis/UTI/sepsis
CT a/p showing bilateral pyelonephritis with possible cystitis as well
Urine culture growing mixed tad
ID on board
Blood culture�no growth
Wound culture�E. coli, Proteus, Enterococcus faecalis, Streptococcus viridans
Unasyn was changed to Augmentin BID
Patient could not tolerate oral medications
Switched back to Unasyn
WBC 14.8 today
Trend CBC
transitioned back to augmentin
#H/o of recurrent CVA/seizures
Patient on dysphagia diet
Wheelchair-bound and requires assistance
Continue Keppra
#Hypokalemia
Resolved
Trend CMP
#Urinary retention - presumed chronic
Parker catheter was placed and discontinued this admit
Unfortunately patient continued to retain and repeat Parker has been placed
Patient will need to f/u with urology in office for voiding trial
# H/O of PE
Diagnosed for small PE in July 14
# Anemia
Normocytic
Possibly due to acute blood loss
S/p PRBC
8.2 today
#Hyperlipidemia
Continue atorvastatin
#Depression
Continue mirtazapine
DVT Px: Eliquis restarted
Anticipated Discharge: Within 24 hours
Subjective/Interval History
-
Date of Service: August 10, 2023
Patient is tolerating regular diet, no nausea/vomiting.
Objective Data
-
Labs:
Laboratory Results
08/10/23
05:31
WBC Pending
Hgb Pending
Hct Pending
Plt Count Pending
Sodium Pending
Potassium Pending
Chloride Pending
Carbon Dioxide Pending
BUN Pending
Creatinine Pending
Glucose Pending
Calcium Pending
Vital Signs:
Vital Signs
Temp Pulse Resp BP Pulse Ox
97.5 F 71 16 139/61 97
08/09/23 23:08 08/09/23 23:08 08/09/23 23:08 08/09/23 23:08 08/10/23 00:36
I&O
08/08/23 08/09/23 08/10/23
06:59 06:59 06:59
Intake Total 1580 / 1580 2385 / 2385 900 / 900
Output Total 100 / 100 700 / 700 750 / 750
Balance 1480 / 1480 1685 / 1685 150 / 150
Review of Systems
-
All other systems: Reviewed and negative (As per HPI)
Physical Exam
-
General: No Apparent Distress
HEENT: Normocephalic and Atraumatic
Respiratory: Clear to Auscultation
Cardiac: S1/S2
GI: Soft, Nondistended and Other (incisions c/d/i - no erythema, ecchymosis or drainage, ostomy - mild edema, flatus, stool in the colostomy bag)
Skin: Warm and Dry
Neuro: Awake, Alert, Oriented and AO x 3
[2023-08-10 06:58] LABS: Hemoglobin 8.5 g/dL (12.0-16.0); Mean Corp Hgb Conc. 35.4 g/dL (33.0-37.0); Mean Corpuscular Hgb 30.9 pg (27.0-31.0); Mean Corpuscular Volume 87.3 fL (81.0-99.0); Mean Platelet Volume 9.4 fL (7.4-10.4); Platelet Count 424 10^3/uL (130-400); Red Blood Cell Count 2.75 10^6/uL (4.20-5.40); Red Cell Dist. Width 16.8 % (11.5-14.5); White Blood Cell Count 12.6 10^3/uL (4.8-10.8)
[2023-08-10 07:05] VITALS: BP 137/70
[2023-08-10] MEDS: ASPIR LOW (ENTERIC COATED) 81 MG PO (08:07)
[2023-08-10] MEDS: KEPPRA 500 MG IV ×2 (08:07→20:47)
[2023-08-10] MEDS: PLAQUENIL 200 MG PO ×2 (08:07→20:50)
[2023-08-10] MEDS: LIPITOR 80 MG PO (08:07)
[2023-08-10] MEDS: ProAmatine PO ×3 (08:08→17:44)
[2023-08-10 09:03] LABS: Blood Urea Nitrogen 12 mg/dl (7-17); Calcium 7.8 mg/dl (8.4-10.2); Carbon Dioxide 23 mmol/L (22-30); Chloride 112 mmol/L (98-107); Estimated Creatinine Clearance 67 ml/min; Glucose 57 mg/dl (70-99); Potassium 3.6 mmol/L (3.5-5.1); Sodium 141 mmol/L (135-145); eGFR > 60.00
--- NOTE | 2023-08-10 09:38 | W.PN.ID1 ---
Date of Service
Date of Service: August 10, 2023
Today's Communication
Transition back to augmentin.
Assessment / Plan
Complicated urinary tract infection
Hx Urinary retention
Suspected bilateral pyelonephritis
Leukocytosis
Stage IV sacral ulceration
- s/p debridement (08/02/23)
Hx CVA
Seizure disorder
Functional paraplegia
Recommendations:
Blood cultures no growth. Initial urine culture with multiple organisms.
Etiology of prior leukocytosis cryptic, but now improving.
Gabriel catheter in place and urine at present appears clear.
Continue with local care to the sacral wound.
Given overall frailty and current bedbound nature, healing will be difficult, with overall outlook very guarded, even with optimization of underlying conditions.
S/P diverting colostomy.
Transition back to augmentin to complete course through 08/15/2023
Significant need for good nutrition and offloading previously stressed to .
����������������������������������������������������������
Chief Complaint
-: UTI and Other (Sacral wound)
Subjective / Review of Systems
Patient seen and examined. Status post colostomy placement.
Review of Systems: No Fever and No Chills
Vital Signs / Physical Exam
Vital Signs
Vital Signs
Temp Pulse Resp BP Pulse Ox
97.7 F 70 12 137/70 99
08/10/23 07:05 08/10/23 08:08 08/10/23 07:05 08/10/23 08:08 08/10/23 07:05
Physical Exam
Constitutional: No Acute Distress, Comfortable and Chronically Ill
Cardiovascular: S1/S2; Negative S3/S4
Pulmonary: Non Labored
Gastrointestinal: Soft, Non Distended and Other (ostomy in place)
Genito-Urinary: Gabriel and Clear Urine; Negative Hematuria
Extremities: Edema; Negative Cyanosis or Erythema
Wound: Other (Sacral wound dressed.)
Neurological: Awake and Alert
Psychological: Calm
Objective Data
Lab Data
Lab Results
08/10/23 05:31
08/10/23 08:11
Estimated Creat Clear 67 ml/min 08/10/23 08:11
Lactic Acid Cancelled 08/01/23 14:35
Total Bilirubin 0.6 mg/dl (0.2-1.3) 08/01/23 08:20
AST 23 U/L (14-36) 08/01/23 08:20
ALT 18 U/L (0-35) 08/01/23 08:20
Alkaline Phosphatase 100 U/L (38-126) 08/01/23 08:20
Most recent labs reviewed.
Micro Results:
08/02/23 12:45 Wound Culture - Final
Buttock Escherichia coli
Viridans Streptococcus Group
Gram Stain - Final
08/02/23 12:45 Anaerobic Culture - Final
Buttock
07/31/23 21:42 Blood Culture - Final
Blood/Venous No Growth - Final Report
07/31/23 21:33 Blood Culture - Final
Blood/Venous No Growth - Final Report
08/02/23 12:45 Tissue Culture - Final
Other-Please specify - Other Escherichia coli
Proteus mirabilis
Enterococcus faecalis
Viridans Streptococcus Group
Gram Stain - Final
07/31/23 21:21 Urine Culture - Final
Urine
Decub ulcer culture
1. Escherichia coli
M.I.C. RX
--------- ---
Amoxicillin/Potas. Clavulanate <=8/4 S
Ampicillin <=8 S
Ampicillin/Sulbactam <=8/4 S
Cefazolin <=2 S
Ertapenem <=0.5 S
Ciprofloxacin <=0.25 S
Gentamicin <=4 S
Levofloxacin <=0.5 S
Meropenem <=1 S
Piperacillin/Tazobactam <=16 S
Tobramycin <=4 S
Trimethoprim/Sulfamethoxazole <=2/38 S
2. Proteus mirabilis
M.I.C. RX
--------- ---
Amoxicillin/Potas. Clavulanate <=8/4 S
Ampicillin <=8 S
Ampicillin/Sulbactam <=8/4 S
Cefazolin <=2 S
Ertapenem <=0.5 S
Ciprofloxacin <=0.25 S
Gentamicin <=4 S
Levofloxacin <=0.5 S
Meropenem <=1 S
Piperacillin/Tazobactam <=16 S
Tobramycin <=4 S
Trimethoprim/Sulfamethoxazole <=2/38 S
Imaging:
07/31/23 CT abdomen/pelvis with IV contrast: Findings are suspicious for bilateral pyelonephritis. The bladder is decompressed with a Gabriel catheter, but appears thickened suggesting cystitis. Diffuse anasarca with sacral decubitus ulcer which abuts
the inferior sacrum. No gross evidence for osteomyelitis. There is degenerative changes of both hips with sclerosis of both femoral heads which may represent degenerative changes with avascular necrosis also in the differential. Please see full
dictation for additional detail.
Care Review
Plan reviewed with: Physician (Hospitalist Resident.)
--- NOTE | 2023-08-10 09:53 | CM ---
Patient family spoke with CM and requested referrals to SNF options [facility] and [facility]. CM sent referrals and [facility] indicated that they had contact with family previously when patient was at [facility].
Patient indicated that they were reluctantly considering placement for short term. CM will continue to follow for discharge planning needs.
Plan; SNF vs home with [facility]
--- NOTE | 2023-08-10 10:50 | W.PN.GS2 ---
Today's Communication / Plan
-
Restart eliquis
Call with ?s
Assessment / Plan
-
Patient is a 67 yo F with h/o CVA and functional quadriplegia p/w UTI and pyelonephritis with a decubitus ulcer. s/p Excisional debridement of sacral decubitus pressure ulcer on 08/02/2023, VAC initially applied but had to be removed d/t extensive
bleeding from wound. S/p lap assisted end sigmoid colostomy on 08/08/2023.
H/H stable s/p 2 units PRBC's on 08/06, slight drift post-op
Recovering well, no major post-op concerns
--Cont LRD supplement shakes, possible regular diet this evening or tomorrow pending tolerance and ostomy function
--HLIV
--Pain control: Tylenol (DC rectal) and Oxycodone
--Local wound care, ostomy consult
--OK to restart eliquis today
All questions answered.
GS will s/o pls call with ?s
Subjective Data
-
Date of Service: August 10, 2023
No complaints, gulshan LRD
Objective Data
-
Intake and Output
08/09/23 08/10/23 08/11/23
06:59 06:59 06:59
Intake Total 2385 / 2385 900 / 900
Output Total 700 / 700 750 / 750
Balance 1685 / 1685 150 / 150
Intake:
Oral fluids 75 / 75 780 / 780
IV fluids (Total) 1950 / 1950
normosol 50 / 50
IV piggybacks 360 / 360 120 / 120
Output:
Urine, Gabriel 700 / 700 750 / 750
Other:
Number of unmeasured liquid
stools
Rectum 1
Vital Signs
Temp Pulse Resp BP Pulse Ox
97.7 F 70 12 137/70 99
08/10/23 07:05 08/10/23 08:08 08/10/23 07:05 08/10/23 08:08 08/10/23 07:05
Lab Results
08/10/23 05:31
08/10/23 08:11
Calcium 7.8 mg/dl (8.4-10.2) L 08/10/23 08:11
Total Bilirubin 0.6 mg/dl (0.2-1.3) 08/01/23 08:20
AST 23 U/L (14-36) 08/01/23 08:20
ALT 18 U/L (0-35) 08/01/23 08:20
Alkaline Phosphatase 100 U/L (38-126) 08/01/23 08:20
Total Protein 5.0 g/dl (6.3-8.2) L 08/01/23 08:20
Albumin 2.0 g/dl (3.5-5.0) L 08/01/23 08:20
Physical Exam
-
Gen: NAD
Abd: soft, approp ttp, incisions cdi, stoma PPV with brown stool in appliance
Rectal: deferred
[2023-08-10] MEDS: TYLENOL 650 MG PO (10:52)
[2023-08-10 15:05] VITALS: BP 152/71
--- NOTE | 2023-08-10 15:33 | CM ---
Patient seen at bedside, of the 3 options; [facility], does not accept [employer], [facility] also on 'vacation' and not accepting referrals. Patient daughter is intrested in going to [facility] for rehab. CM will start auth after reviewing with
physician.
[2023-08-10] MEDS: AUGMENTIN 875 MG/125 MG 1 TABLET PO (20:46)
[2023-08-10] MEDS: ELIQUIS 5 MG PO (20:47)
[2023-08-10] MEDS: REMERON 7.5 MG PO (22:18)
[2023-08-10 23:12] VITALS: BP 152/68
[2023-08-11] MEDS: TYLENOL 650 MG PO (01:36)
[2023-08-11 06:00] VITALS: BMI 17.7
--- NOTE | 2023-08-11 06:26 | W.PN.HOSP.TC ---
Addendum entered and electronically signed by Elly Pickering MD 08/11/23 17:08:
Patient seen and examined independently--agree with plan set forth by Dr. Anderson
GENERAL: chronically ill appearing female in no apparent distress
HEENT: NC/AT
HEART: regular rate and rhythm, +S1, +S2
LUNGS : clear to auscultation bilaterally
ABDOM: soft, nontender, nondistended, + bowel sounds--colostomy with stool
EXT: no cyanosis, clubbing, or edema
NEUROLOGIC: seems chronically bedbound
: parker
SKIN: large sacral decub ulcer (reviewed wound picture)
Asymptomatic hypoglycemia--low blood sugars this AM--not on any diabetic meds Possibly due to her prior n.p.o. status/decreased appetite--Blood sugars 45-67--Patient is not symptomatic--Encourage feeding
Stage IV decubitus ulcer-- Pelvic x-ray did not show any bone destruction-- necrotic eschar on the ulcer base, S/p debridement on 08/02/2023, multiple organisms from wound cultured, bleeding post debridement with acute blood loss anemia--restarted
Eliquis--hgb 6.1 s/p 3 units pRBC in total--apprec wound care--s/p diverting colostomy, POD#3--apprec gen surgery--apprec ID oral ABX-- unasyn to Augmentin
Pyelonephritis/UTI/sepsis--CT a/p showing bilateral pyelonephritis with possible cystitis as well--Urine culture growing mixed tad -apprec ID-- unasyn to Augmentin--Blood culture�no growth--Patient could not tolerate oral medications
previously--WBC 14.9 today--Trend CBC
H/o of recurrent CVA/seizures--Patient on dysphagia diet--Wheelchair bound and requires assistance--Continue Keppra
Hypokalemia--Resolved
Urinary retention - presumed chronic--Parker catheter was placed and discontinued this admit--Unfortunately patient continued to retain and repeat Parker has been placed--Patient will need to f/u with urology in office for voiding trial--would d/c
WITH parker
H/O of PE--Diagnosed for small PE in July 14--Discussed with daughter that may need to hold Eliquis for 48-72 hours with debridement site bleeding--restarted eliquis 08/09
Anemia--due to acute blood loss--S/p PRBC--8.8 today
Hyperlipidemia--Continue atorvastatin
Depression--Continue mirtazapine
DVT Px: Eliquis on hold
code status -- DNR
anticipate d/c to SNF 08/11
Original Note:
Today's Communication/Plan
-
Augmentin through 08/15/2023
Discharge tomorrow
Assessment / Plan
Assessment / Plan
Assessment:
67-year-old, female, Ms. Ramirez admitted for complicated UTI with bilateral pyelonephritis and cystitis, chronic urinary retention on Parker. She had stage IV sacral decubitus ulcer, s/p debridement on 08/02/2023. Bleeding noticed on the debridement
site with hemoglobin dropping down to 6.1 on 08/07/2023. She was transfused with 2 PRBC and hemoglobin trending back to 8.8. General surgery consultation�plan on diverting colostomy. Today is postoperative day 3 of diverting colostomy.
Impression:
S/p diverting colostomy
Stage IV sacral decubitus ulcer
Pyelonephritis/UTI/sepsis
History of recurrent CVA/seizures
Hypokalemia
Urinary retention
Anemia
History of PE
Hyperlipidemia
Depression
Plan:
#Asymptomatic hypoglycemia
Blood sugars 45-67
Patient is not symptomatic
Possibly due to her prior n.p.o. status/decreased appetite
Monitor
Encourage feeding
# S/P diverting colostomy
Today is postoperative day 3
on regular diet
Pain control with Tylenol
Local wound care
eliquis resumed
# Stage IV decubitus ulcer
Pelvic x-ray did not show any bone destruction
Wound care evaluated, the necrotic eschar on the ulcer base
S/p debridement on 08/02/2023
Bleeding from the debridement site, hemoglobin 6.1
Transfused with 2 PRBC
Hemoglobin today 8.8
General surgery consult�patient signed consent for diverting colostomy
wound care
# Pyelonephritis/UTI/sepsis
CT a/p showing bilateral pyelonephritis with possible cystitis as well
Urine culture growing mixed tad
ID on board
Blood culture�no growth
Wound culture�E. coli, Proteus, Enterococcus faecalis, Streptococcus viridans
Unasyn was changed to Augmentin BID
Patient could not tolerate oral medications
Switched back to Unasyn
WBC 10.4 today
Trend CBC
transitioned back to augmentin through 08/15/2023
#H/o of recurrent CVA/seizures
Patient on dysphagia diet
Wheelchair-bound and requires assistance
Continue Keppra
#Hypokalemia
Resolved
Trend CMP
#Urinary retention - presumed chronic
Parker catheter was placed and discontinued this admit
Unfortunately patient continued to retain and repeat Parker has been placed
Patient will need to f/u with urology in office for voiding trial
Patient will be discharged with Parker
# H/O of PE
Diagnosed for small PE in July 14
# Anemia
Normocytic
Possibly due to acute blood loss
S/p PRBC
8. 8 today
#Hyperlipidemia
Continue atorvastatin
#Depression
Continue mirtazapine
DVT Px: Eliquis restarted
Anticipated Discharge: 24 - 48 hours
Subjective/Interval History
-
Date of Service: August 11, 2023
Patient doing well on oral antibiotics. No nausea/vomiting. She is able to tolerate regular diet.
Objective Data
-
Labs:
Laboratory Results
08/11/23
05:43
WBC Pending
Hgb Pending
Hct Pending
Plt Count Pending
Sodium Pending
Potassium Pending
Chloride Pending
Carbon Dioxide Pending
BUN Pending
Creatinine Pending
Glucose Pending
Calcium Pending
Total Bilirubin Pending
AST Pending
ALT Pending
Alkaline Phosphatase Pending
Vital Signs:
Vital Signs
Temp Pulse Resp BP Pulse Ox
98.2 F 70 18 152/68 98
08/10/23 23:12 08/10/23 23:12 08/10/23 23:12 08/10/23 23:12 08/10/23 23:12
I&O
08/09/23 08/10/23 08/11/23
06:59 06:59 06:59
Intake Total 2385 / 2385 900 / 900 480 / 480
Output Total 700 / 700 750 / 750 400 / 400
Balance 1685 / 1685 150 / 150 80 / 80
Physical Exam
-
General: No Apparent Distress, Comfortable and Appears Chronically Ill
HEENT: Normocephalic and Atraumatic
Respiratory: Clear to Auscultation
Cardiac: S1/S2
GI: Soft, Nontender, Normal Bowel Sounds and Other (Colostomy bag with air and feces)
Skin: Warm, Dry and Other (Sacral wound with dressing, foot pressure ulcers with dressing)
Neuro: Awake, Alert, Oriented and AO x 3
[2023-08-11 06:31] LABS: % Eosinophils 1.1 % (0-6); % Immature Granulocytes 0.6 % (0-0.5); % Lymphocytes 18.1 % (20.5-51.1); % Monocytes 5.6 % (1.7-9.3); % Neutrophils 73.6 % (42.2-75.2); Absolute Basophils 0.1 10^3/uL (0-0.2); Absolute Eosinophils 0.1 10^3/uL (0-0.7); Absolute Immature Granulocytes 0.1 10^3/uL (0-0.05); Absolute Lymphocytes 1.9 10^3/uL (1.2-3.4); Absolute Monocytes 0.6 10^3/uL (0.1-0.6); Absolute Neutrophils 7.7 10^3/uL (1.4-6.5); Hematocrit 26.4 % (37.0-47.0); Hemoglobin 8.8 g/dL (12.0-16.0); Mean Corp Hgb Conc. 33.3 g/dL (33.0-37.0); Mean Corpuscular Hgb 30.4 pg (27.0-31.0); Mean Corpuscular Volume 91.3 fL (81.0-99.0); Mean Platelet Volume 9.6 fL (7.4-10.4); Nucleated Red Blood Cells % 0.2 %; Platelet Count 455 10^3/uL (130-400); Red Blood Cell Count 2.89 10^6/uL (4.20-5.40); Red Cell Dist. Width 17.3 % (11.5-14.5); White Blood Cell Count 10.4 10^3/uL (4.8-10.8)
[2023-08-11 06:53] LABS: ALT (SGPT) 35 U/L (0-35); AST (SGOT) 42 U/L (14-36); Albumin 1.9 g/dl (3.5-5.0); Alkaline Phosphatase 98 U/L (38-126); Blood Urea Nitrogen 8 mg/dl (7-17); Calcium 7.4 mg/dl (8.4-10.2); Carbon Dioxide 23 mmol/L (22-30); Chloride 112 mmol/L (98-107); Estimated Creatinine Clearance 65 ml/min; Glucose 57 mg/dl (70-99); Potassium 3.3 mmol/L (3.5-5.1); Sodium 140 mmol/L (135-145); Total Bilirubin 0.5 mg/dl (0.2-1.3); Total Protein 4.6 g/dl (6.3-8.2); eGFR > 60.00
[2023-08-11 07:05] VITALS: BP 142/69
[2023-08-11 08:11] LABS: Glucose - Point of Care 61 mg/dl (70-99)
[2023-08-11 09:12] LABS: Glucose - Point of Care 45 mg/dl (70-99)
[2023-08-11] MEDS: LIPITOR 80 MG PO (09:32)
[2023-08-11] MEDS: AUGMENTIN 875 MG/125 MG 1 TABLET PO ×2 (09:32→20:37)
[2023-08-11] MEDS: ELIQUIS 5 MG PO ×2 (09:32→20:37)
[2023-08-11] MEDS: ASPIR LOW (ENTERIC COATED) 81 MG PO (09:32)
[2023-08-11] MEDS: ProAmatine PO ×2 (09:33→13:44)
[2023-08-11 09:34] LABS: Glucose - Point of Care 73 mg/dl (70-99)
[2023-08-11] MEDS: KEPPRA 500 MG IV ×2 (09:34→20:37)
[2023-08-11] MEDS: PLAQUENIL 200 MG PO ×2 (09:34→20:37)
[2023-08-11 12:24] LABS: Glucose - Point of Care 109 mg/dl (70-99)
--- NOTE | 2023-08-11 13:10 | WOUNDNOTE ---
[facility] RN note: Patient seen around 11am. Sacral dressing changed. Wound with 35% yellow/ramirez slough, 65% pink/clean. Less surrounding erythema than 08/05/23. Po intake poor. stated she had some dumplings he bought in yesterday. She has declined
supplemental protein drink. R heel ulcer appears newly healed. Silicone border foam applied. L lateral ankle red area resolving and L lateral knee newly healed. Silicone border foam dressings changed. Instructed how to empty and change
ostomy appliance using Ashley 19073 and Ashley pouch # [id number]. Stoma pink, budded and measures about 1 1/8 inches. Minor bleeding occurred along R lateral edge of stoma during appliance change that stopped with pressure. Dr. Bansal approved
adding Santyl ointment to current sacral wound care. t/c SPD and ordered small flange 2 piece appliances: Ashley wafer # [id number] and Ashley pouch #[id number] (and a few Aaron seals incase needed in future). Due to patient's body habitus (patient is
very thin and arms and legs contracted) and poor po intake, sacral wound healing potential is poor. Patient is on a Versacare air bed with a Waffle air overlay for more cushioning. Patient turned to R semi side lying position, pillow between legs,
air chair cushion under heels/ankles. informed this bid writer plan now is SNF prior to going home. Patient's home vac pump removed from patient's room and wiped down. Emailed [employer] secure email asking to grain picker/cancel home vac
order. Home vac is located in [facility].
[2023-08-11 13:44] VITALS: BP 131/74
--- NOTE | 2023-08-11 14:05 | CM ---
[facility] accepted patient and patient daughter/ in agreement. Auth request sent to [facility] earlier today await response. CM will continue to follow for discharge planning needs.
Plan; SNF
--- NOTE | 2023-08-11 14:35 | WOUNDNOTE ---
WOC RN Note: Gregorio texted Dr. Collado an update including wound photo re: small LLQ wound just under distal wafer border suspect it's an old NICOLE site wound which was covered with a bordered foam under the ostomy wafer; plan to add alginate with
bordered dressing if needed for drainage with each wafer change. Nursing care plan and discharge instructions updated.
[2023-08-11 15:10] VITALS: BP 132/72
--- NOTE | 2023-08-11 15:13 | W.PN.ID1 ---
Date of Service
Date of Service: August 11, 2023
Today's Communication
Continue abx.
Assessment / Plan
Complicated urinary tract infection
Hx Urinary retention
Suspected bilateral pyelonephritis
Leukocytosis
Stage IV sacral ulceration
- s/p debridement (08/02/23)
Hx CVA
Seizure disorder
Functional paraplegia
Recommendations:
Blood cultures no growth. Initial urine culture with multiple organisms.
Etiology of prior leukocytosis cryptic, but now resolved.
Gabriel catheter in place and urine at present appears clear.
Continue with local care to the sacral wound.
Given overall frailty and current bedbound nature, healing will be difficult, with overall outlook very guarded, even with optimization of underlying conditions.
S/P diverting colostomy.
Continue Augmentin; to complete course through 08/15/2023
Significant need for good nutrition and offloading previously stressed to .
����������������������������������������������������������
Chief Complaint
-: UTI and Other (Sacral wound)
Subjective / Review of Systems
Review of Systems: No Fever and No Chills
Vital Signs / Physical Exam
Vital Signs
Vital Signs
Temp Pulse Resp BP Pulse Ox
97.8 F 66 16 131/74 91
08/11/23 07:05 08/11/23 13:44 08/11/23 13:44 08/11/23 13:44 08/11/23 07:05
Physical Exam
Constitutional: No Acute Distress, Comfortable and Chronically Ill
Pulmonary: Non Labored
Gastrointestinal: Soft, Non Distended and Other (ostomy in place)
Genito-Urinary: Gabriel and Clear Urine; Negative Hematuria
Extremities: Edema; Negative Cyanosis or Erythema
Wound: Other (Sacral wound dressed.)
Neurological: Awake and Alert
Psychological: Calm
Objective Data
Lab Data
Lab Results
08/11/23 05:43
08/11/23 05:43
Estimated Creat Clear 65 ml/min 08/11/23 05:43
Lactic Acid Cancelled 08/01/23 14:35
Total Bilirubin 0.5 mg/dl (0.2-1.3) 08/11/23 05:43
AST 42 U/L (14-36) H 08/11/23 05:43
ALT 35 U/L (0-35) 08/11/23 05:43
Alkaline Phosphatase 98 U/L (38-126) 08/11/23 05:43
Most recent labs reviewed.
Micro Results:
08/02/23 12:45 Wound Culture - Final
Buttock Escherichia coli
Viridans Streptococcus Group
Gram Stain - Final
08/02/23 12:45 Anaerobic Culture - Final
Buttock
07/31/23 21:42 Blood Culture - Final
Blood/Venous No Growth - Final Report
07/31/23 21:33 Blood Culture - Final
Blood/Venous No Growth - Final Report
08/02/23 12:45 Tissue Culture - Final
Other-Please specify - Other Escherichia coli
Proteus mirabilis
Enterococcus faecalis
Viridans Streptococcus Group
Gram Stain - Final
07/31/23 21:21 Urine Culture - Final
Urine
Decub ulcer culture
1. Escherichia coli
M.I.C. RX
--------- ---
Amoxicillin/Potas. Clavulanate <=8/4 S
Ampicillin <=8 S
Ampicillin/Sulbactam <=8/4 S
Cefazolin <=2 S
Ertapenem <=0.5 S
Ciprofloxacin <=0.25 S
Gentamicin <=4 S
Levofloxacin <=0.5 S
Meropenem <=1 S
Piperacillin/Tazobactam <=16 S
Tobramycin <=4 S
Trimethoprim/Sulfamethoxazole <=2/38 S
2. Proteus mirabilis
M.I.C. RX
--------- ---
Amoxicillin/Potas. Clavulanate <=8/4 S
Ampicillin <=8 S
Ampicillin/Sulbactam <=8/4 S
Cefazolin <=2 S
Ertapenem <=0.5 S
Ciprofloxacin <=0.25 S
Gentamicin <=4 S
Levofloxacin <=0.5 S
Meropenem <=1 S
Piperacillin/Tazobactam <=16 S
Tobramycin <=4 S
Trimethoprim/Sulfamethoxazole <=2/38 S
Imaging:
07/31/23 CT abdomen/pelvis with IV contrast: Findings are suspicious for bilateral pyelonephritis. The bladder is decompressed with a Gabriel catheter, but appears thickened suggesting cystitis. Diffuse anasarca with sacral decubitus ulcer which abuts
the inferior sacrum. No gross evidence for osteomyelitis. There is degenerative changes of both hips with sclerosis of both femoral heads which may represent degenerative changes with avascular necrosis also in the differential. Please see full
dictation for additional detail.
--- NOTE | 2023-08-11 16:00 | WOUNDNOTE ---
WOC RN note: Tomas from picked up patient's home vac pump (serial number [id number]).
--- NOTE | 2023-08-11 17:00 | WOUNDNOTE ---
Confirmed with CM Cheli Harper via tiger text that CM is aware patient needs an air mattress at SNF; patient has a stage 4 sacral pressure injury.
--- NOTE | 2023-08-11 17:15 | WOUNDNOTE ---
WOC RN note: t/c Spoke with Tee from [employer] and ordered patient the [employer] secure starter kit.
[2023-08-11 18:47] LABS: Glucose - Point of Care 100 mg/dl (70-99)
[2023-08-11 21:26] LABS: Glucose - Point of Care 110 mg/dl (70-99)
[2023-08-11] MEDS: REMERON 7.5 MG PO (21:28)
[2023-08-11 23:51] VITALS: BP 147/90
[2023-08-12 04:29] LABS: Glucose - Point of Care 71 mg/dl (70-99)
--- NOTE | 2023-08-12 05:49 | W.DCSUMMARY ---
Addendum entered and electronically signed by Elly Pickering MD 08/12/23 20:34:
Fully read and agree with summary set forth by Dr. Anderson.
Nothing further to add.
Original Note:
Discharge Summary
Discharge Data
Date of Admission: 08/01/23
Date of Discharge: 08/12/23
-
Pending Results: No
Hospital Course
Discharging Physician : Dr. Elly Pickering, Dr. Shantelle Anderson
Disposition : SNF
Primary care physician : Gerri Stovall PA-C
Principal Discharge diagnosis : Acute pyelonephritis, stage IV sacral decubitus ulcer
Chronic Discharge diagnosis : Stage IV sacral decubitus ulcer s/p debridement, acute pyelonephritis/UTI/sepsis, diverting colostomy, hypokalemia, history of recurrent CVA/seizures, urinary retention, history of PE, acute blood loss anemia,
hyperlipidemia, depression
Hospital Course : 67-year-old female with past medical history significant for bilateral pyelonephritis/cystitis, chronic urinary retention, stage IV sacral decubitus ulcer, CVA, hypertension, hyperlipidemia presented for evaluation of urinary
retention and fevers, accompanied by her . Patient had a stroke several months ago. Since then, she has been incontinent with bowel and bladder. She developed a fever and urinary retention and urinary tract infection weeks ago, requiring
admission to an outpatient hospital. They brought Gabriel catheter supplies in case she developed urinary retention again. After placement of Gabriel by her daughter who is a registered nurse, there was significant amount of purulent urine that was
removed. Urine analysis showed evidence of UTI. Patient was started on IV cefepime and IV fluid. Her home medications Keppra, atorvastatin, mirtazapine were continued. ID was consulted. Patient was transitioned to empiric Zosyn due to suspicion
of MDR organisms. Patient had history of recurrent CVA, dysphagia -patient wheelchair-bound. After PT/OT/speech therapy evaluation and started on IDDSI 6 diet. General surgery was consulted for evaluation of possible debridement for her stage IV
sacral decubitus ulcer, planned on operative debridement after Eliquis washout. Consent taken and patient wished to proceed with the surgery. Patient had bleeding from the debridement site after the surgery, hemoglobin dropped to 6.1. She is
transfused with 2 PRBC with the return of hemoglobin to 8.8. Wound culture�E. coli, Proteus mirabilis, Enterococcus faecalis, viridans streptococci. Blood cultures showed no growth. Antibiotics transitioned to Unasyn. Her CBC, electrolytes were
monitored regularly and repleted accordingly. Due to her nonhealing sacral decubitus ulcer, postoperative bleeding from the debridement site and fecal incontinence plan was made to proceed with laparoscopic diverting colostomy after discussion with
the patient and patient's family, consent was taken. As per ID evaluation, based on the clinical improvement patient was switched to Augmentin. Her Eliquis was resumed. Patient had asymptomatic hypoglycemia briefly, possibly due to her n.p.o.
status/decreased appetite, and ensure added, later sugars trended between 71-110. Labs were stable and patient recovering well, no major concerns. Patient is discharged on Augmentin through 08/15/2023 and a prescription was given for oxycodone.
Patient advised to follow-up with urology in office for voiding trial�patient discharged with Gabriel.
Advised follow-up with wound care, colostomy team, primary care.
Discharge Plan
-
Patient Disposition: Alf/SNF
Discharge Diagnosis/Procedures: Pyelonephritis/UTI/sepsis, stage IV decubitus ulcer, diverting colostomy, acute blood loss anemia, chronic urinary retention, hyperlipidemia, depression
Diet: As tolerated, Regular and Low Sodium
Activity: With assistance
Driving Restrictions: No driving
Bathing Restrictions: None
Other Services: VN, PT and OT
Wound Care: Wound care instructions for sacral decubitus ulcer, colostomy given below.
Activity Restrictions/Additional Instructions:
Colon and Rectal Surgery Patient Discharge Instructions
Activity level: Avoid heavy lifting for the next 4 weeks or until cleared to do so at follow-up appointment. To expound on this, no straining, lifting, pushing, pulling greater than 15 lbs during this time frame. Do not engage in any activities
that would engage your core/abdominal muscles. No running, jumping, etc. Otherwise activity as tolerated by comfort level. It is OK to walk, and you should be encouraged to walk frequently.
Diet: Regular diet. You should try and drink 2 liters of fluids daily.
Bowel Medications: You should try to avoid being constipated for the next 4 weeks. If you find that you do not pass any stool for 48 hours, you should try over the counter options first for management of constipation - use miralax one to two times a
day. If this does not work, try adding milk of magnesia. You will use different medications and find the right regimen that works for you.
Driving: No driving while still taking opioid pain medications (wait at least 6-8 hours since last dose). No driving if you are still sore from surgery as it may limit your ability to react quickly if necessary.
Shower/Bath: You may shower and get incision(s) wet. Pat dry immediately following. Do not scrub them vigorously for the next 2-3 weeks. Do not soak incision(s) for the next 2 weeks (i.e. soaking in bath or swimming) as this may promote a wound
infection.
Wound Care: Remove gauze dressing if applied over wound. Wash incision with soap and water, pat dry, and leave open to air. You may cover with gauze as needed to prevent incision rubbing on clothes or for any seepage. If you have skin promise or
sutures please call the office number below to schedule a follow-up appointment in 2 weeks.
Pain Medication: Tylenol should be used as primary [id number]-ptxhamr pain reliever; 650mg every 6 hours as needed. Do not exceed 3000mg in 24 hours. Ibuprofen may also be used and dosed at 600mg every 6 hours as well and should be taken with food.
Alternate these two medications every three hours around the clock. ex. Tylenol 9am, Ibuprofen 12-noon, Tylenol 3pm, Ibuprofen 6pm, etc. Ibuprofen should only be used for a maximum of 2 weeks post-operatively. In addition to these medications,
non-opioid therapies and non-pharmacologic modalities such as heating pad, ice, and activity modification are recommended as appropriate for adjunct treatment of your pain.
For break through pain management, you are also being prescribed a prescription opioid for the treatment of acute post-operative pain related to surgery. You have been advised to take the smallest dose possible to control your pain and as your pain
improves, please take smaller doses and increase the time between doses.
Follow up Appointments/Questions: Please call [phone] to schedule/confirm your follow-up visit time

Call your doctor if:
- You develop any of the following sings or symptoms of infection:
- Redness or swelling of your incision (some mild redness around the incision and the staple sites is normal)
- Drainage or bleeding from your incision
- Fever over 100.5 F
- Increased pain or discomfort at the incision site
- Persistent nausea and/or vomiting or the inability to keep foods or fluids down in a 24 hour period.
- Signs or symptoms of dehydration:
- Dry mouth, lightheadedness
- Dark, concentrated urine, or lack of urine
- Any other concerning sign or symptom such as shortness or breath, chest pain, pain with urination or other signs of urinary tract infection (UTI), or new leg pain/swelling. Also, please call if you develop increasing abdominal pain, increasing
abdominal pain, abdominal firmness, if you stop passing gas or stool for an extended period of time, or bloody bowel movements/vomitting.
Patients with Ileostomy/Colostomy please call your rn embedded or Doctor if:
Change in Color: The stoma should always be pink or red in color. Should the color change to white, blue or black, medical notification is required.
Bleeding: It is common and normal for the stoma to bleed minimally during gentle washing. Blood found in the pouch requires medical notification.
Prolapse: The term implies that the stoma now extends further from the skin surface than it did at discharge from the hospital. An increase of one inch or more requires medical notification. Pain may or may not accompany a prolapse.
Retraction: This term implies that the bowel has slightly fallen back into the abdominal cavity. It may become flush with or recessed below the skin. A good seal with the pouch is difficult.
Herniation: This term implies that the muscular area in which the stoma is sewn has lost its tone and the entire area, including skin and surrounding stoma now protrudes beyond the normal skin surface.
Irritated Skin: Irritated skin can quickly worsen to a difficult to manage situation. Treat irritated skin as you have been taught. If it has not cleared up after one week call your ostomy nurse.
Leaky Pouch: If you are having to change the pouch every other day or more frequently due to leakage it is reasonable for you to give your Ostomy Nurse a call.
Ostomy Resources:
Ostomy.org: [employer] - includes a video 'Living with an Ostomy'
[employer] [place]: www.uoaa.org
[employer]: www.fascrs.org/patients/treatments_and_screening/ostomy/
[employer]: YouTube: 'FACS Ostomy Education'
- Helping your with home care
- Your Ostomy
- Your Operation
- Pouching systems
- Emptying a Pouch
- Changing a Pouch
- Problem Solving
- Emergencies
- Knowledge check
- Ostomy skills (all modules, 27 minutes)
These videos are also on Youtube: search for '[employer] Ostomy Education Skills'
Below is a list of garment websites we other ostomates have found helpful. We do not endorse or have any financial relationship with any of them
- [employer] - custom neoprene swimming belts.
- [employer] - 'stylish ostomy underwear and ostomy undergarments'
- [employer] - 'Dont' feel Different . . . FEEL CONFIDENT.'
Wound Care Instructions
Sacrum-clean with saline, no sting barrier wipe to surrounding skin, Santyl ointment to necrotic tissue, pack with 1/4 strength Dakin's moist gauze, cover with ABD pad/s, change daily and prn drainage.
Once wound 90% clean, start/evaulate for wound vac therapy, clean with saline (clean with 1/4 strength Dakin's prn odor), use black foam, pump setting 125mmhg continuous, low intensity, change q 48-72 hours. Call [employer] support for vac pump
questions/problems [phone].
R heel ulcer-clean with saline, foam dressing, change daily and as needed for loosened dressing.
L lateral ankle, L lateral knee-protective foam dressing, change every 3 days and as needed for loosened dressing.
L heel, L elbow-protective foam dressing, change every 3 days and as needed for loosened dressing.
Air mattress.
Turning schedule
Elevate heels off bed with soft heel relief boots; air chair cushion under heels/boots.
Pressure redistributing chair cushion (i.e. Air, Roho).
Ostomy supplies: Ashley wafer # [id number] and Ashley pouch # [id number], change 2 times a week and as needed for leakage. Change 2 times a week and as needed for leakage. Use an Aaron seal if leakage occurs. Consider a closed end pouch (i.e. Ashley
pouch # [id number]) if pouch only needs emptying 1 or 2 times over a 24hr period.
Follow up with wound healthcare advisory services manager or at wound care center call for an appointment.
Referrals:
Gerri Stovall PA-C [Family Provider] - in less than 1 week
Prescriptions:
New
Santyl 250 unit/gram Ointment
1 applic topical DAILY Qty: 30 0RF
acetaminophen 325 mg Tablet
650 mg PO Q4HPRN PRN (Reason: TRINIDAD/mild pain/temp > 100.4 F) Qty: 20 0RF
amoxicillin-pot clavulanate 875-125 mg tablet
1 tab PO BID Qty: 7 0RF
oxycodone 5 mg Tablet
2.5 mg PO Q4HPRN PRN (Reason: mod pain) Qty: 7 0RF
oxycodone 5 mg tablet
5 mg PO Q4H PRN (Reason: severe pain) Qty: 7 0RF
Continued
multivitamin Tablet
1 tab PO DAILY
fluoxetine 40 mg Capsule
40 mg PO DAILY
atorvastatin 80 mg Tablet
80 mg PO DAILY
amlodipine 5 mg Tablet
5 mg PO DAILY
hydroxychloroquine 200 mg Tablet
200 mg PO BID
levetiracetam [Keppra] 100 mg/mL Solution
500 mg PO BID
mirtazapine 7.5 mg Tablet
7.5 mg PO HS
Eliquis 5 mg Tablet
5 mg PO BID
aspirin 81 mg Capsule
81 mg PO DAILY
Discharge Orders:
Discharge Patient (As Directed); Ordered 08/12/23
Ordered By: Shantelle Anderson
Discharge Date and Time
Print Language: GEORGIAN
[2023-08-12 06:00] VITALS: BMI 17.5
[2023-08-12 06:29] LABS: % Basophils 0.7 % (0-2); % Eosinophils 0.6 % (0-6); % Immature Granulocytes 0.5 % (0-0.5); % Lymphocytes 15.9 % (20.5-51.1); % Monocytes 5.6 % (1.7-9.3); % Neutrophils 76.7 % (42.2-75.2); Absolute Basophils 0.1 10^3/uL (0-0.2); Absolute Eosinophils 0.1 10^3/uL (0-0.7); Absolute Immature Granulocytes 0.1 10^3/uL (0-0.05); Absolute Lymphocytes 1.7 10^3/uL (1.2-3.4); Absolute Monocytes 0.6 10^3/uL (0.1-0.6); Hemoglobin 8.4 g/dL (12.0-16.0); Mean Corp Hgb Conc. 33.6 g/dL (33.0-37.0); Mean Corpuscular Hgb 30.4 pg (27.0-31.0); Mean Corpuscular Volume 90.6 fL (81.0-99.0); Mean Platelet Volume 9.9 fL (7.4-10.4); Nucleated Red Blood Cells % 0.3 %; Platelet Count 443 10^3/uL (130-400); Red Blood Cell Count 2.76 10^6/uL (4.20-5.40); Red Cell Dist. Width 17.6 % (11.5-14.5); White Blood Cell Count 10.4 10^3/uL (4.8-10.8)
[2023-08-12 06:59] LABS: ALT (SGPT) 38 U/L (0-35); AST (SGOT) 47 U/L (14-36); Albumin 1.6 g/dl (3.5-5.0); Alkaline Phosphatase 86 U/L (38-126); Blood Urea Nitrogen 6 mg/dl (7-17); Carbon Dioxide 24 mmol/L (22-30); Chloride 113 mmol/L (98-107); Estimated Creatinine Clearance 64 ml/min; Glucose 70 mg/dl (70-99); Potassium 3.5 mmol/L (3.5-5.1); Sodium 138 mmol/L (135-145); Total Bilirubin 0.5 mg/dl (0.2-1.3); Total Protein 4.1 g/dl (6.3-8.2); eGFR > 60.00
[2023-08-12 07:05] VITALS: BP 148/80
--- NOTE | 2023-08-12 08:14 | W.PN.HOSP.TC ---
Addendum entered and electronically signed by Elly Pickering MD 08/12/23 18:37:
Patient seen and examined independently--agree with plan set forth by Dr. Anderson
GENERAL: chronically ill appearing female in no apparent distress
HEENT: NC/AT
HEART: regular rate and rhythm, +S1, +S2
LUNGS : clear to auscultation bilaterally
ABDOM: soft, nontender, nondistended, + bowel sounds--colostomy with stool
EXT: no cyanosis, clubbing, or edema
NEUROLOGIC: seems chronically bedbound
: parker
SKIN: large sacral decub ulcer (reviewed wound picture)
Asymptomatic hypoglycemia---resolved--not on any diabetic meds Possibly due to her prior n.p.o. status/decreased appetite--Blood sugars 45-67--Patient is not symptomatic--Encourage feeding
Stage IV decubitus ulcer-- Pelvic x-ray did not show any bone destruction-- necrotic eschar on the ulcer base, S/p debridement on 08/02/2023, multiple organisms from wound cultured, bleeding post debridement with acute blood loss anemia--restarted
Eliquis- s/p 3 units pRBC in total--apprec wound care--s/p diverting colostomy, POD#4--apprec gen surgery--apprec ID oral ABX-- unasyn to Augmentin
Pyelonephritis/UTI/sepsis--CT a/p showing bilateral pyelonephritis with possible cystitis as well--Urine culture growing mixed tad -apprec ID-- unasyn to Augmentin--Blood culture�no growth--Patient could not tolerate oral medications
previously--WBC 14.9 today--Trend CBC
H/o of recurrent CVA/seizures--Patient on dysphagia diet--Wheelchair bound and requires assistance--Continue Keppra
Hypokalemia--Resolved
Urinary retention - presumed chronic--Parker catheter was placed and discontinued this admit--Unfortunately patient continued to retain and repeat Parker has been placed--Patient will need to f/u with urology in office for voiding trial--would d/c
WITH parker
H/O of PE--Diagnosed for small PE in July 14--Discussed with daughter that may need to hold Eliquis for 48-72 hours with debridement site bleeding--restarted eliquis 08/09
Anemia--due to acute blood loss--S/p PRBC
Hyperlipidemia--Continue atorvastatin
Depression--Continue mirtazapine
DVT Px: Eliquis on hold
code status -- DNR
d/c to SNF 08/11
Original Note:
Today's Communication/Plan
-
Discharge today
Assessment / Plan
Assessment / Plan
Assessment:
67-year-old, female, Ms. Ramirez admitted for complicated UTI with bilateral pyelonephritis and cystitis, chronic urinary retention on Parker. She had stage IV sacral decubitus ulcer, s/p debridement on 08/02/2023. Bleeding noticed on the debridement
site with hemoglobin dropping down to 6.1 on 08/07/2023. She was transfused with 2 PRBC and hemoglobin trending back to 8.8. General surgery consultation�plan on diverting colostomy. Today is postoperative day 4 of diverting colostomy.
Impression:
S/p diverting colostomy
Stage IV sacral decubitus ulcer
Pyelonephritis/UTI/sepsis
History of recurrent CVA/seizures
Hypokalemia
Urinary retention
Anemia
History of PE
Hyperlipidemia
Depression
Plan:
#Asymptomatic hypoglycemia
Blood sugars 45-67
Patient is not symptomatic
Possibly due to her prior n.p.o. status/decreased appetite
Encourage feeding
Blood glucose 71-110
Monitor
# S/P diverting colostomy
Today is postoperative day 4
on regular diet
Pain control with Tylenol
Local wound care
eliquis resumed
# Stage IV decubitus ulcer
Pelvic x-ray did not show any bone destruction
Wound care evaluated, the necrotic eschar on the ulcer base
S/p debridement on 08/02/2023
Bleeding from the debridement site, hemoglobin 6.1
Transfused with 2 PRBC
Hemoglobin today 8.4
General surgery consult�patient signed consent for diverting colostomy
wound care
# Pyelonephritis/UTI/sepsis
CT a/p showing bilateral pyelonephritis with possible cystitis as well
Urine culture growing mixed tad
ID on board
Blood culture�no growth
Wound culture�E. coli, Proteus, Enterococcus faecalis, Streptococcus viridans
Unasyn was changed to Augmentin BID
Patient could not tolerate oral medications
Switched back to Unasyn
WBC 10.4 today
Trend CBC
transitioned back to augmentin through 08/15/2023
#H/o of recurrent CVA/seizures
Patient on dysphagia diet
Wheelchair-bound and requires assistance
Continue Keppra
#Hypokalemia
Resolved
Trend CMP
Potassium at 3.5
#Urinary retention - presumed chronic
Parker catheter was placed, yielded purulent urine and later discontinued this admit
Unfortunately patient continued to retain and repeat Parker has been placed.
Patient will need to f/u with urology in office for voiding trial
Patient will be discharged with Parker
# H/O of PE
Diagnosed for small PE in July 14
# Anemia
Normocytic
Possibly due to acute blood loss
S/p PRBC
8. 4 today
#Hyperlipidemia
Continue atorvastatin
#Depression
Continue mirtazapine
DVT Px: Eliquis restarted
Anticipated Discharge: Today
Subjective/Interval History
-
Date of Service: August 12, 2023
Patient is feeling comfortable.
Objective Data
-
Labs:
Laboratory Results
08/12/23
05:47
WBC 10.4
Hgb 8.4 L
Hct 25.0 L
Plt Count 443 H
Sodium 138
Potassium 3.5
Chloride 113 H
Carbon Dioxide 24
BUN 6 L
Creatinine 0.5 L
Glucose 70
Calcium 7.0 L
Total Bilirubin 0.5
AST 47 H
ALT 38 H
Alkaline Phosphatase 86
Vital Signs:
Vital Signs
Temp Pulse Resp BP Pulse Ox
97.5 F 66 14 147/90 99
08/11/23 23:51 08/11/23 23:51 08/11/23 23:51 08/11/23 23:51 08/11/23 23:51
I&O
08/11/23 08/12/23 08/13/23
06:59 06:59 06:59
Intake Total 480 / 480 600 / 600
Output Total 400 / 400 685 / 685
Balance 80 / 80 -85 / -85
Review of Systems
-
All other systems: Reviewed and negative (As per HPI)
Physical Exam
-
General: No Apparent Distress
HEENT: Normocephalic and Atraumatic
Respiratory: Clear to Auscultation
Cardiac: S1/S2
GI: Soft, Nontender, Nondistended and Normal Bowel Sounds
Genito-urinary: Parker
Neuro: Awake, Alert and Oriented
[2023-08-12] MEDS: LIPITOR 80 MG PO (08:57)
[2023-08-12] MEDS: ASPIR LOW (ENTERIC COATED) 81 MG PO (08:57)
[2023-08-12] MEDS: ELIQUIS 5 MG PO (08:57)
[2023-08-12] MEDS: AUGMENTIN 875 MG/125 MG 1 TABLET PO (08:58)
[2023-08-12] MEDS: PLAQUENIL 200 MG PO (08:58)
[2023-08-12] MEDS: KEPPRA 500 MG IV (08:58)
[2023-08-12 09:05] LABS: Glucose - Point of Care 77 mg/dl (70-99)
--- NOTE | 2023-08-12 10:39 | W.PN.ID1 ---
Date of Service
Date of Service: August 12, 2023
Today's Communication
Continue Augmentin; to complete course through 08/15/2023
Assessment / Plan
Complicated urinary tract infection
Hx Urinary retention
Suspected bilateral pyelonephritis
Leukocytosis - resolved
Stage IV sacral ulceration
- s/p debridement (08/02/23)
Hx CVA
Seizure disorder
Functional paraplegia
Recommendations:
Blood cultures no growth. Initial urine culture with multiple organisms.
Etiology of prior leukocytosis cryptic, but now resolved.
Gabriel catheter in place and urine at present appears clear.
Continue with local care to the sacral wound.
Given overall frailty and current bedbound nature, healing will be difficult, with overall outlook very guarded, even with optimization of underlying conditions.
S/P diverting colostomy.
Continue Augmentin; to complete course through 08/15/2023
Significant need for good nutrition and offloading previously stressed to .
����������������������������������������������������������
Chief Complaint
-: UTI and Other (Sacral wound)
Subjective / Review of Systems
No complaints.
Vital Signs / Physical Exam
Vital Signs
Vital Signs
Temp Pulse Resp BP Pulse Ox
98.1 F 71 18 148/80 99
08/12/23 07:05 08/12/23 08:57 08/12/23 07:05 08/12/23 08:57 08/12/23 07:05
Physical Exam
Constitutional: No Acute Distress and Comfortable
Gastrointestinal: Soft, Non Tender and Non Distended
Genito-Urinary: Gabriel (dark clear urine)
Neurological: Awake and Alert
Objective Data
Lab Data
Lab Results
08/12/23 05:47
08/12/23 05:47
Estimated Creat Clear 64 ml/min 08/12/23 05:47
Lactic Acid Cancelled 08/01/23 14:35
Total Bilirubin 0.5 mg/dl (0.2-1.3) 08/12/23 05:47
AST 47 U/L (14-36) H 08/12/23 05:47
ALT 38 U/L (0-35) H 08/12/23 05:47
Alkaline Phosphatase 86 U/L (38-126) 08/12/23 05:47
Most recent labs reviewed.
Micro Results:
08/02/23 12:45 Wound Culture - Final
Buttock Escherichia coli
Viridans Streptococcus Group
Gram Stain - Final
08/02/23 12:45 Anaerobic Culture - Final
Buttock
07/31/23 21:42 Blood Culture - Final
Blood/Venous No Growth - Final Report
07/31/23 21:33 Blood Culture - Final
Blood/Venous No Growth - Final Report
08/02/23 12:45 Tissue Culture - Final
Other-Please specify - Other Escherichia coli
Proteus mirabilis
Enterococcus faecalis
Viridans Streptococcus Group
Gram Stain - Final
07/31/23 21:21 Urine Culture - Final
Urine
Decub ulcer culture
1. Escherichia coli
M.I.C. RX
--------- ---
Amoxicillin/Potas. Clavulanate <=8/4 S
Ampicillin <=8 S
Ampicillin/Sulbactam <=8/4 S
Cefazolin <=2 S
Ertapenem <=0.5 S
Ciprofloxacin <=0.25 S
Gentamicin <=4 S
Levofloxacin <=0.5 S
Meropenem <=1 S
Piperacillin/Tazobactam <=16 S
Tobramycin <=4 S
Trimethoprim/Sulfamethoxazole <=2/38 S
2. Proteus mirabilis
M.I.C. RX
--------- ---
Amoxicillin/Potas. Clavulanate <=8/4 S
Ampicillin <=8 S
Ampicillin/Sulbactam <=8/4 S
Cefazolin <=2 S
Ertapenem <=0.5 S
Ciprofloxacin <=0.25 S
Gentamicin <=4 S
Levofloxacin <=0.5 S
Meropenem <=1 S
Piperacillin/Tazobactam <=16 S
Tobramycin <=4 S
Trimethoprim/Sulfamethoxazole <=2/38 S
Imaging:
07/31/23 CT abdomen/pelvis with IV contrast: Findings are suspicious for bilateral pyelonephritis. The bladder is decompressed with a Gabriel catheter, but appears thickened suggesting cystitis. Diffuse anasarca with sacral decubitus ulcer which abuts
the inferior sacrum. No gross evidence for osteomyelitis. There is degenerative changes of both hips with sclerosis of both femoral heads which may represent degenerative changes with avascular necrosis also in the differential. Please see full
dictation for additional detail.
--- NOTE | 2023-08-12 12:06 | W.PN.GS2 ---
Today's Communication / Plan
-
Upgraded to regular diet
Assessment / Plan
-
Patient is a 67 yo F with h/o CVA and functional quadriplegia p/w UTI and pyelonephritis with a decubitus ulcer. s/p Excisional debridement of sacral decubitus pressure ulcer on 08/02/2023, VAC initially applied but had to be removed d/t extensive
bleeding from wound. S/p lap assisted end sigmoid colostomy on 08/08/2023 for stool diversion.
Labs stable
Recovering well, no major post-op concerns
--Regular diet, declining protein supplements
--Pain control: Tylenol and Oxycodone
--Local wound care, ostomy team following. Continue Santyl to areas of slough.
--Would resume care at the outpatient wound center upon discharge, known to Dr. Martinez.
GS to continue to follow remotely, please call if any questions or concerns.
Subjective Data
-
Date of Service: August 12, 2023
Patient seen and examined at bedside. Ate 1/4 of a PB&J for lunch. Denies n/v but does have poor appetite.
Objective Data
-
Intake and Output
08/11/23 08/12/23 08/13/23
06:59 06:59 06:59
Intake Total 480 / 480 600 / 600
Output Total 400 / 400 685 / 685
Balance 80 / 80 -85 / -85
Intake:
Oral fluids 480 / 480 600 / 600
Output:
Liquid stool amount 100 / 100 175 / 175
Colostomy 100 / 100 175 / 175
Urine, Gabriel 300 / 300 360 / 360
Urine, Voided 150 / 150
Other:
Number of unmeasured liquid
stools
Colostomy 2
Vital Signs
Temp Pulse Resp BP Pulse Ox
98.1 F 71 18 148/80 99
08/12/23 07:05 08/12/23 08:57 08/12/23 07:05 08/12/23 08:57 08/12/23 07:05
Lab Results
08/12/23 05:47
08/12/23 05:47
Calcium 7.0 mg/dl (8.4-10.2) L 08/12/23 05:47
Total Bilirubin 0.5 mg/dl (0.2-1.3) 08/12/23 05:47
AST 47 U/L (14-36) H 08/12/23 05:47
ALT 38 U/L (0-35) H 08/12/23 05:47
Alkaline Phosphatase 86 U/L (38-126) 08/12/23 05:47
Total Protein 4.1 g/dl (6.3-8.2) L 08/12/23 05:47
Albumin 1.6 g/dl (3.5-5.0) L 08/12/23 05:47
Physical Exam
-
Gen: NAD
Abd: soft, approp ttp, incisions cdi, stoma PPV with brown stool in appliance
Sacrum: dressing intact
[2023-08-12] MEDS: DAKIN'S SOLUTION 0.125% 1/4 STRENGTH 473 ML TOPICAL (12:39)
[2023-08-12] MEDS: SANTYL OINTMENT 1 APPLIC TOPICAL (12:40)
--- NOTE | 2023-08-12 13:05 | CM ---
Please fax wound note to [phone]. Patient accepted for transfer today to SNF at [facility]. Auth recieved from [facility] for 08/11-08/28/23 SNF level #1 [id number] Next review date 08/28/22 to Pau IRENE. Please call to her at [phone]/fax
[phone]. Patient family aware and update provided. IMM signed form placed on chart. Patient for ambulance transfer to [facility] please call report to [phone]/ fax to [phone]. CM will continue to follow for discharge planning
needs.
Plan; transfer to SNF
[2023-08-12] MEDS: ROXICODONE 5 MG PO (13:27)
[2023-08-12 15:05] VITALS: BP 129/77
[2023-08-12 16:57] VITALS: BP 143/67
--- NOTE | 2023-08-12 18:05 | PTCARENOTE ---
Called Benny at [phone] and gave report to Elly. outbound supervisor time by ambulance scheduled for 193. Family updated.
== END 2023-08-12 20:40 | DRG 853 ==
LOC: 2 NORTH 01:33
PROVIDERS: Hospitalist; Student in an Organized Health Care Education/Training Program; Surgery; ADMITTING PHYSICIAN Internal Medicine; ATTENDING PHYSICIAN Internal Medicine; CONSULT PHYSICIAN Surgery; EMERGENCY PHYSICIAN Student in an Organized Health Care Education/Training Program; FAMILY PHYSICIAN Physician Assistant; OTHER PHYSICIAN Internal Medicine Infectious Disease
PROC: 0JB70ZZ Excision of Back Subcutaneous Tissue and Fascia, Open Approach (ICD-10-PCS; 2023-08-02)
PROC: 30233N1 Transfusion of Nonautologous Red Blood Cells into Peripheral Vein, Percutaneous Approach (ICD-10-PCS; 2023-08-03)
PROC: 0D1N4Z4 Bypass Sigmoid Colon to Cutaneous, Percutaneous Endoscopic Approach (ICD-10-PCS; 2023-08-08)
DX: A41.9 Sepsis, unspecified organism (principal); G92.8 Other toxic encephalopathy; L89.613 Pressure ulcer of right heel, stage 3; L89.154 Pressure ulcer of sacral region, stage 4; R53.2 Functional quadriplegia; N10 Acute pyelonephritis; D62 Acute posthemorrhagic anemia; L76.22 Postprocedural hemorrhage of skin and subcutaneous tissue following other procedure; E87.20 Acidosis, unspecified; R64 Cachexia; Z68.1 Body mass index [BMI] 19.9 or less, adult; E87.6 Hypokalemia; G40.909 Epilepsy, unspecified, not intractable, without status epilepticus; R33.9 Retention of urine, unspecified; I69.319 Unspecified symptoms and signs involving cognitive functions following cerebral infarction; I69.391 Dysphagia following cerebral infarction; R13.10 Dysphagia, unspecified; R65.20 Severe sepsis without septic shock; Z66 Do not resuscitate; R15.9 Full incontinence of feces; Y83.8 Other surgical procedures as the cause of abnormal reaction of the patient, or of later complication, without mention of misadventure at the time of the procedure; E16.2 Hypoglycemia, unspecified; L89.522 Pressure ulcer of left ankle, stage 2; L89.892 Pressure ulcer of other site, stage 2; L89.511 Pressure ulcer of right ankle, stage 1; I10 Essential (primary) hypertension; E78.00 Pure hypercholesterolemia, unspecified; F32.A Depression, unspecified; D75.839 Thrombocytosis, unspecified; B96.4 Proteus (mirabilis) (morganii) as the cause of diseases classified elsewhere; B95.2 Enterococcus as the cause of diseases classified elsewhere; Z86.711 Personal history of pulmonary embolism; Z99.3 Dependence on wheelchair; Z74.01 Bed confinement status; Z87.440 Personal history of urinary (tract) infections; Z79.82 Long term (current) use of aspirin; Z79.01 Long term (current) use of anticoagulants
CPT/HCPCS: 74018; 74177; 80048; 80053; 81003; 81015; 82962; 83605; 85014; 85018; 85025; 85027; 86850; 86900; 86901; 86920; 87040; 87070; 87071; 87075; 87077; 87086; 87176; 87186; 87205; 92526; 92610; 96361; 96374; 97163; 97167; 99285; P9016; Q9967

== ENCOUNTER 2023-08-20 21:39 | Emergency (ER) | payer OTHER, SELFPAY ==
[2023-08-20 21:40] VITALS: BP 112/54
[2023-08-20 21:45] VITALS: BP 112/54
[2023-08-20 22:03] VITALS: BP 115/80
[2023-08-20 22:10] LABS: % Basophils 1.2 % (0-2); % Immature Granulocytes 0.2 % (0-0.5); % Lymphocytes 21.8 % (20.5-51.1); % Neutrophils 69.8 % (42.2-75.2); Absolute Basophils 0.1 10^3/uL (0-0.2); Absolute Lymphocytes 1.8 10^3/uL (1.2-3.4); Absolute Monocytes 0.6 10^3/uL (0.1-0.6); Absolute Neutrophils 5.7 10^3/uL (1.4-6.5); Hematocrit 23.9 % (37.0-47.0); Hemoglobin 7.9 g/dL (12.0-16.0); Mean Corp Hgb Conc. 33.1 g/dL (33.0-37.0); Mean Corpuscular Hgb 30.3 pg (27.0-31.0); Mean Corpuscular Volume 91.6 fL (81.0-99.0); Mean Platelet Volume 9.2 fL (7.4-10.4); Nucleated Red Blood Cells % 0 %; Platelet Count 442 10^3/uL (130-400); Red Blood Cell Count 2.61 10^6/uL (4.20-5.40); Red Cell Dist. Width 17.2 % (11.5-14.5); White Blood Cell Count 8.2 10^3/uL (4.8-10.8)
[2023-08-20 22:33] LABS: ALT (SGPT) 53 U/L (0-35); AST (SGOT) 64 U/L (14-36); Albumin 2.1 g/dl (3.5-5.0); Alkaline Phosphatase 88 U/L (38-126); Blood Urea Nitrogen 12 mg/dl (7-17); Calcium 7.6 mg/dl (8.4-10.2); Carbon Dioxide 28 mmol/L (22-30); Chloride 107 mmol/L (98-107); Glucose 88 mg/dl (70-99); Potassium 2.9 mmol/L (3.5-5.1); Sodium 137 mmol/L (135-145); Total Bilirubin 0.4 mg/dl (0.2-1.3); Total Protein 4.7 g/dl (6.3-8.2); eGFR > 60.00
[2023-08-20 23:00] VITALS: BP 151/54
--- NOTE | 2023-08-20 23:42 | ED.GENMED ---
History of Present Illness
General
Chief Complaint: Abnormal Lab Value
Source: patient, spouse and previous hospital records (Recent extensive hospitalization tonight until August 11)
Exam Limitations: none
Time Seen by Provider: 08/20/23 23:23
Nursing documentation reviewed up to this point in time: agreed with
History of Present Illness
History of Present Illness:
This is a 67-year-old woman who was recently hospitalized here tonight until August 11 when she presented with high fever found to have pyelonephritis, urosepsis. Hospital course was complicated with stage IV sacral decubitus requiring debridement
and then diverting colostomy due to ongoing fecal incontinence accompanied with stage IV sacral decubitus.
Prior to this hospitalization she suffered 2 [id number] strokes with significant disability, wheelchair-bound.
Noted to have chronic anemia and did receive 3 units of packed red blood cells postoperatively with baseline hemoglobin running in the sevens to eights.
She also has history of hypokalemia and had been maintained on daily potassium in the past. She required potassium repletion during recent hospitalization.
She is sent to the ED by custodial staff when H&H returned at 7.0. According to custodial records there is an order to send to the ED if hemoglobin is less than 7.
There has been no evidence of active bleeding, no bloody stools in her colostomy, no vomiting, no hematuria from Gabriel catheter. She has not had a fever.
is at bedside and states his had a great day today, she has been eating and drinking normally. She has had no complaints of pain, no dizziness nor lightheadedness.
Past History
Past History
ED Past Medical History: CVA, HTN, Hypercholesterolemia, Seizures, Other (Stage IV sacral decub, hypokalemia, diverting colostomy August 08, 2023) and Other (Urinary retention, UTI/pyelonephritis with urosepsis, indwelling Gabriel catheter)
ED Past Surgical History: Other (Diverting colostomy August 08, 2023 due to fecal incontinence and sacral decubitus.)
Social History
Tobacco: Non-smoker
Alcohol: None
Personal:
Living: custodial
Family History
Family History: Other (Noncontributory)
Phy Exam
Physical Exam
Physical Exam:
GENERAL: 67-year-old woman appears somewhat frail, chronically debilitated. Lying on her right side, she is awake and alert, exhibits moderate expressive aphasia but oriented x 3 and appears in no acute distress. is accompanying.
EYE: Mildly pale conjunctiva, anicteric
NECK: Supple, nontender, no meningismus, no significant adenopathy.
ENT: posterior pharynx is clear, oral mucosa is moist. No rhinorrhea.
CARDIAC: Regular rate and rhythm. no murmur.
LUNGS: Clear breath sounds bilaterally, no acute respiratory distress, no wheezes/rales/rhonchi
ABDOMEN: Colostomy draining soft brown stool, abdomen is soft, nondistended, without focal tenderness, no r/g, no cvat. normoactive BS.
NEUROLOGICAL: Alert and oriented x3, moderate expressive aphasia. Contractures
SKIN: Warm and dry, mildly pale in color, stage IV sacral decub, no rash.
MUSCULOSKELETAL: peripheral pulses are full and equal b/l. No palpable tenderness.
PSYCH: Normal and appropriate interaction.
Course
Orders/Labs/Results
Orders:
Orders
08/20/23 22:02
Type+Screen Urgent
CMP [Comprehensive Metabolic Panel] Urgent
Complete Blood Count/With Diff Urgent
Magnesium Urgent
Comment: ADD ON
08/20/23 23:39
Add On- LAB Urgent
Tests Added?: Mg
Potassium Chloride Powder [Klor-Con] 40 meq PO NOW STA
08/21/23 00:42
Potassium Chloride Powder [Klor-Con] 20 meq .ROUTE .STK-MED ONE
Abnormal Lab Results
08/20/23
22:02
RBC 2.61 L 10^6/uL
(4.20-5.40)
Hgb 7.9 L g/dL
(12.0-16.0)
Hct 23.9 L %
(37.0-47.0)
RDW 17.2 H %
(11.5-14.5)
Plt Count 442 H 10^3/uL
(130-400)
Potassium 2.9 L mmol/L
(3.5-5.1)
Creatinine 0.3 L mg/dL
(0.6-1.0)
Calcium 7.6 L mg/dl
(8.4-10.2)
AST 64 H U/L
(14-36)
ALT 53 H U/L
(0-35)
Total Protein 4.7 L g/dl
(6.3-8.2)
Albumin 2.1 L g/dl
(3.5-5.0)
08/20/23 22:02
08/20/23 22:02
Vital Signs
Initial and Last Documented VS:
Initial Vital Signs
Temp Pulse Resp BP Pulse Ox
98.9 F 74 18 112/54 99
08/20/23 21:40 08/20/23 21:40 08/20/23 21:40 08/20/23 21:40 08/20/23 21:40
Last Documented Vital Signs
Temp Pulse Resp BP Pulse Ox
98.9 F 69 17 122/69 99
08/20/23 21:40 08/21/23 00:30 08/21/23 00:30 08/21/23 00:00 08/21/23 00:30
MDM/Problems Addressed
Differential Diagnosis Includes:
Concern for progressive on chronic anemia with outpatient hemoglobin of 7.
Overall patient has remained asymptomatic, nothing to suggest symptomatic anemia.
Labs show hemoglobin of 7.9. This is near her baseline and at this point no indication for blood transfusion.
She is chronically maintained on oral iron.
Labs also show hypokalemia with potassium of 2.9. Similar sporadic hypokalemia during recent hospitalization requiring IV as well as oral repletion.
states patient had been on daily oral potassium supplement but not listed in current medications from custodial.
Will give an oral dose of potassium now and a prescription for once daily potassium tablet.
Will check magnesium level.
Will plan to discharge back to custodial for continued care.
Chronic conditions affecting care: Neurological disorder
*Critical Care Note
Total Time (30-74mins, 75-104mins- exclusive of procedures): Not Applicable
ED Attending Note
-
Portions of this chart may have been created with voice recognition software.� Occasional wrong word or��sound alike� substitutions may have occurred due to the inherent limitations of voice recognition software.
Discharge Plan
Departure
Patient Disposition: [facility]/SNF
Date of Disposition: 08/20/23
Time of Disposition: 23:42
Patient with high blood pressure during this ER visit?: No
Discharge Problem:
Anemia of chronic disease, Hypokalemia
Instructions: Hypokalemia, Normocytic Normochromic Anemia (DC)
Prescriptions:
New
potassium chloride 20 mEq tablet,ER particles/crystals
20 meq PO DAILY Qty: 30 0RF
No Action
multivitamin Tablet
1 tab PO DAILY
fluoxetine 40 mg Capsule
40 mg PO DAILY
atorvastatin 80 mg Tablet
80 mg PO DAILY
amlodipine 5 mg Tablet
5 mg PO DAILY
hydroxychloroquine 200 mg Tablet
200 mg PO BID
levetiracetam [Keppra] 100 mg/mL Solution
500 mg PO BID
mirtazapine 7.5 mg Tablet
7.5 mg PO HS
Eliquis 5 mg Tablet
5 mg PO BID
aspirin 81 mg Capsule
81 mg PO DAILY
Santyl 250 unit/gram Ointment
1 applic topical DAILY Qty: 30 0RF
acetaminophen 325 mg Tablet
650 mg PO Q4HPRN PRN (Reason: TRINIDAD/mild pain/temp > 100.4 F) Qty: 20 0RF
amoxicillin-pot clavulanate 875-125 mg tablet
1 tab PO BID Qty: 7 0RF
oxycodone 5 mg Tablet
5 mg PO Q4HPRN PRN (Reason: Severe pain) Qty: 7 0RF
oxycodone 5 mg tablet
2.5 mg PO Q4H PRN (Reason: mild pain) Qty: 7 0RF
Referrals:
Bina Jordan MD [Family Provider] - Call in 1-3 days for appt
Interventions
Interventions:
*Risk Screen - Suicide Last Done: 08/20/23 23:13
*General Assessment Last Done: 08/20/23 21:50
*Neglect/Abuse Screening Last Done: 08/20/23 21:50
*ED COVID-19 Vaccine History Last Done: 08/20/23 22:47
*Nursing Disposition Last Done: 08/21/23 01:04
Discharge Date and Time
Discharge Date/Time: 08/21/23 01:05
Print Language: GUINEAN
[2023-08-21] VITALS: BP 122/69
[2023-08-21 00:11] LABS: Magnesium 1.8 mg/dl (1.6-2.3)
[2023-08-21] MEDS: KLOR-CON 40 MEQ PO (01:02)
== END 2023-08-21 01:05 ==
LOC: EMR 21:39
PROVIDERS: Student in an Organized Health Care Education/Training Program; EMERGENCY PHYSICIAN Emergency Medicine; FAMILY PHYSICIAN Internal Medicine
DX: D64.9 Anemia, unspecified (principal); E87.6 Hypokalemia; I10 Essential (primary) hypertension; E78.00 Pure hypercholesterolemia, unspecified; R15.9 Full incontinence of feces; Z86.73 Personal history of transient ischemic attack (TIA), and cerebral infarction without residual deficits; Z87.440 Personal history of urinary (tract) infections; Z93.3 Colostomy status; Z99.3 Dependence on wheelchair
CPT/HCPCS: 99283; 80053; 83735; 85025; 86850; 86900; 86901

== ENCOUNTER 2023-09-03 01:33 | Inpatient (IN) | payer OTHER, MEDICARE, SELFPAY ==
[2023-09-02] VITALS (16 sets, daily range): BP systolic 96–121; BP diastolic 47–62
[2023-09-02 20:35] LABS: % Basophils 1.1 % (0-2); % Eosinophils 0.1 % (0-6); % Immature Granulocytes 0.3 % (0-0.5); % Lymphocytes 24.8 % (20.5-51.1); % Monocytes 7.8 % (1.7-9.3); % Neutrophils 65.9 % (42.2-75.2); Absolute Basophils 0.1 10^3/uL (0-0.2); Absolute Lymphocytes 1.7 10^3/uL (1.2-3.4); Absolute Monocytes 0.6 10^3/uL (0.1-0.6); Absolute Neutrophils 4.6 10^3/uL (1.4-6.5); Mean Corp Hgb Conc. 32.8 g/dL (33.0-37.0); Mean Corpuscular Hgb 31.3 pg (27.0-31.0); Mean Corpuscular Volume 95.4 fL (81.0-99.0); Nucleated Red Blood Cells % 0 %; Platelet Count 534 10^3/uL (130-400); Red Blood Cell Count 1.95 10^6/uL (4.20-5.40); Red Cell Dist. Width 15.8 % (11.5-14.5)
[2023-09-02 20:46] LABS: Hematocrit 18.6 % (37.0-47.0); Hemoglobin 6.1 g/dL (12.0-16.0)
[2023-09-02 20:47] LABS: INR 1.57; PT 18.6 Sec (11.4-14.6)
[2023-09-02 20:48] LABS: APTT 39.7 Sec (23.4-35.0)
--- NOTE | 2023-09-02 21:07 | ED.GENMED ---
History of Present Illness
General
Chief Complaint: Abnormal Lab Value
Source: patient
Exam Limitations: none
Time Seen by Provider: 09/02/23 20:09
Nursing documentation reviewed up to this point in time: agreed with
History of Present Illness
History of Present Illness:
67-year-old female past medical history of seizures stroke hypertension hyperlipidemia sacral decubitus ulcers presenting to the emergency department today from her nursing facility with concerns of low hemoglobin of 6.1. There is a history of
anemia denies any current symptoms at this time.
Past History
Past History
ED Past Medical History: CVA, HTN, Hypercholesterolemia, Seizures, Other (Stage IV sacral decub, hypokalemia, diverting colostomy August 08, 2023) and Other (Urinary retention, UTI/pyelonephritis with urosepsis, indwelling Gabriel catheter)
ED Past Surgical History: Other (Diverting colostomy August 08, 2023 due to fecal incontinence and sacral decubitus.)
Social History
Tobacco: Non-smoker
Alcohol: None
Personal:
Living: alf
Family History
Family History: Other (Noncontributory)
Review of Systems
Review of Systems
Allergies reviewed?: Yes
All Other Systems: ROS reviewed and negative except as documented in HPI and ROS
Phy Exam
Physical Exam
Physical Exam:
GENERAL: Alert , in no apparent distress
EYE: pupils equal and reactive
NECK: Supple, no significant adenopathy.
ENT: o/p clr, mmm.
CARDIAC: Regular rate and rhythm .
LUNGS: Clear breath sounds bilaterally, no acute respiratory distress, no wheezes/rales/rhonchi
ABDOMEN: Colostomy bag dark brown stool guaiac positive. Soft, without focal tenderness, no r/g, no cvat
Sacral decubitus ulcers without significant bleeding.
NEUROLOGICAL: Alert and oriented,
SKIN: Warm and dry, skin intact.
MUSCULOSKELETAL: No edema, well perfused.
PSYCH: Normal and appropriate interaction.
Course
Orders/Labs/Results
Orders:
Orders
09/02/23 20:28
Type+Screen Urgent
Complete Blood Count/With Diff Urgent
Comprehensive Metabolic Panel Urgent
PTT Urgent
Prothrombin Time Urgent
09/02/23 21:02
* Blood Bank Products Urgent
Blood Bank Products: *Packed RBC Leuko(PRBC's)
Quantity: 1
Transfuse Today: Yes
Reason: Anemia
09/02/23 21:03
Pantoprazole [Protonix IV] 80 mg IV NOW STA
09/02/23 21:58
NSS 500mL Bolus over 30 minutes 0.9% Sodium Chloride 500 ml [Nss] 500 ml IV BOLUS
Abnormal Lab Results
09/02/23
20:28
RBC 1.95 L 10^6/uL
(4.20-5.40)
Hgb 6.1 L* g/dL
(12.0-16.0)
Hct 18.6 L* %
(37.0-47.0)
MCH 31.3 H pg
(27.0-31.0)
MCHC 32.8 L g/dL
(33.0-37.0)
RDW 15.8 H %
(11.5-14.5)
Plt Count 534 H 10^3/uL
(130-400)
PT 18.6 H Sec
(11.4-14.6)
APTT 39.7 H Sec
(23.4-35.0)
Sodium 134 L mmol/L
(135-145)
Creatinine 0.5 L mg/dL
(0.6-1.0)
Glucose 100 H mg/dl
(70-99)
Calcium 7.9 L mg/dl
(8.4-10.2)
AST 44 H U/L
(14-36)
ALT 51 H U/L
(0-35)
Total Protein 4.8 L g/dl
(6.3-8.2)
Albumin 2.3 L g/dl
(3.5-5.0)
Crossmatch IS Only See Detail
09/02/23 20:28
09/02/23 20:28
Vital Signs
Initial and Last Documented VS:
Initial Vital Signs
Temp Pulse Resp BP Pulse Ox
99.6 F 91 17 113/62 97
09/02/23 19:55 09/02/23 19:55 09/02/23 19:55 09/02/23 19:55 09/02/23 19:55
Last Documented Vital Signs
Temp Pulse Resp BP Pulse Ox
99.4 F 76 18 96/51 96
09/02/23 21:36 09/02/23 21:36 09/02/23 21:36 09/02/23 21:36 09/02/23 21:36
MDM/Problems Addressed
MDM/Problems Addressed:
67-year-old female presenting to the emergency department today with concerns of low hemoglobin that was found on outpatient labs. Hemoglobin of 6.1 here. Otherwise vital signs are normal patient in no distress patient does have dark brown stool
in her colostomy bag which was guaiac positive. Patient is also on Eliquis. Last dose this morning. Plan to admit and give a unit of blood. Asymptomatic throughout ER stay.
*Critical Care Note
Total Time (30-74mins, 75-104mins- exclusive of procedures): Not Applicable
ED Attending Note
-
Portions of this chart may have been created with voice recognition software.� Occasional wrong word or��sound alike� substitutions may have occurred due to the inherent limitations of voice recognition software.
Discharge Plan
Departure
Patient Disposition: Admit
Date of Disposition: 09/02/23
Time of Disposition: 21:59
Admit to: Telemetry
Admit to doctor: Sameer
Presentation/result/management discussed w/ accepting MD/DO: Hospitalist
Patient with high blood pressure during this ER visit?: No
Condition: Good
Covid-19: Not Applicable
Discharge Problem:
Acute GI bleeding, Anemia
Prescriptions:
No Action
multivitamin Tablet
1 tab PO DAILY
fluoxetine 40 mg Capsule
40 mg PO DAILY
atorvastatin 80 mg Tablet
80 mg PO DAILY
amlodipine 5 mg Tablet
5 mg PO DAILY
hydroxychloroquine 200 mg Tablet
200 mg PO BID
levetiracetam [Keppra] 100 mg/mL Solution
500 mg PO BID
mirtazapine 7.5 mg Tablet
7.5 mg PO HS
Eliquis 5 mg Tablet
5 mg PO BID
aspirin 81 mg Capsule
81 mg PO DAILY
Santyl 250 unit/gram Ointment
1 applic topical DAILY Qty: 30 0RF
acetaminophen 325 mg Tablet
650 mg PO Q4HPRN PRN (Reason: TRINIDAD/mild pain/temp > 100.4 F) Qty: 20 0RF
amoxicillin-pot clavulanate 875-125 mg tablet
1 tab PO BID Qty: 7 0RF
oxycodone 5 mg Tablet
5 mg PO Q4HPRN PRN (Reason: Severe pain) Qty: 7 0RF
oxycodone 5 mg tablet
2.5 mg PO Q4H PRN (Reason: mild pain) Qty: 7 0RF
potassium chloride 20 mEq tablet,ER particles/crystals
20 meq PO DAILY Qty: 30 0RF
Referrals:
Bina Jordan MD [Family Provider] -
Interventions
Interventions:
*General Assessment Last Done: 09/02/23 21:26
ED- Fall Risk Assessment Last Done: 09/02/23 21:26
Discharge Date and Time
Print Language: JAPANESE
[2023-09-02] MEDS: PROTONIX IV 80 MG IV (21:13)
[2023-09-02 21:30] LABS: ALT (SGPT) 51 U/L (0-35); AST (SGOT) 44 U/L (14-36); Albumin 2.3 g/dl (3.5-5.0); Alkaline Phosphatase 74 U/L (38-126); Blood Urea Nitrogen 16 mg/dl (7-17); Calcium 7.9 mg/dl (8.4-10.2); Carbon Dioxide 28 mmol/L (22-30); Chloride 105 mmol/L (98-107); Glucose 100 mg/dl (70-99); Potassium 4.5 mmol/L (3.5-5.1); Sodium 134 mmol/L (135-145); Total Bilirubin 0.2 mg/dl (0.2-1.3); Total Protein 4.8 g/dl (6.3-8.2); eGFR > 60.00
[2023-09-03] VITALS (12 sets, daily range): BP systolic 98–135; BP diastolic 43–76; PULSE 80–82; O2SAT 98; BMI 16.1
--- NOTE | 2023-09-03 01:13 | HPS.HSE ---
Family Physician
-
Family Physician: Bina Jordan
Chief Complaint
-
Abnormal Lab
History of Present Illness
Patient is a 67y F with PMH significant for CVA with resultant functional paraplegia and recent admission for sacral wound including diverting sigmoid colostomy who presents to ED from local SNF for evaluation of abnormal outpatient lab. Patient
has been doing very well at [facility] since her prior admission here (07/31 - 08/14). notes that he was with her all day today and she was feling very well. At the time of my examination, patient denies any complaints. She has not noted any gross
blood loss. She denies chest pain, dyspnea, lightheadedness, etc.
Routine labs were done today and Hgb was low prompting staff at [facility] to send her to the ED for eval.
Medical History
Past Medical History
Past Medical History: Reports Other
Additional Past Medical History:
ASCVD
CVA with Functional Paraplegia
Hypertension
Seizure Disorder
Dyslipidemia
Stage IV Sacral Ulcer
History of PE (June 2023)
Anemia of Chronic Disease
Anxiety / Depression
Past Surgical History: Reports Other
Additional Past Surgical History:
I&D Sacral Wound
Diverting End Sigmoid Colostomy (08/08/23)
Social History
Tobacco: Non-smoker
Alcohol: None
Drug: None
Family History
Family History: Not pertinent
Allergies / Home Medications
Allergies reflects when Allergies were last updated in [employer].
Home Medications with original date entered in [employer]
Allergy/Medication List:
Allergies
Allergy/AdvReac Type Severity Reaction Status Date / Time
No Known Allergies Allergy Verified 08/20/23 21:40
Home Medications
amlodipine 5 mg tablet 5 mg PO DAILY Blood Pressure 07/31/23
apixaban 5 mg tablet (Eliquis) 5 mg PO BID Blood Clot Prevention/Tx 07/31/23
aspirin 81 mg capsule 81 mg PO DAILY Blood Clot Prevention/Tx 07/31/23
atorvastatin 80 mg tablet 80 mg PO DAILY High Cholesterol 07/31/23
fluoxetine 40 mg capsule 40 mg PO DAILY Mental Health/Anxiety 07/31/23
hydroxychloroquine 200 mg tablet 200 mg PO BID Autoimmune Disorder 07/31/23
levetiracetam 100 mg/mL oral solution (Keppra) 500 mg PO BID Neurological Condition 07/31/23
mirtazapine 7.5 mg tablet 7.5 mg PO HS Mental Health/Anxiety 07/31/23
multivitamin 1 tab PO DAILY Supplement 07/31/23
collagenase clostridium histo. 250 unit/gram topical ointment (Santyl) 1 applic topical DAILY #30 grams 08/12/23
oxycodone 5 mg tablet 2.5 mg (1/2 x 5 mg) PO Q4H PRN mild pain #7 tabs 08/12/23
potassium chloride 20 mEq tablet,extended release(part/cryst) 20 meq PO DAILY #30 tabs 08/20/23
ascorbic acid (vitamin C) 500 mg tablet 500 mg PO DAILY 09/03/23
ferrous sulfate 325 mg (65 mg iron) tablet 325 mg PO QPM 09/03/23
oxycodone 5 mg tablet 5 mg PO HS 09/03/23
oxycodone 5 mg tablet 5 mg PO Q6HPRN PRN Severe pain 09/03/23
zinc sulfate 220 mg capsule 220 mg PO DAILY 09/03/23
Review of Systems
-
History Source: Patient
A 12 point ROS was completed and negative except as noted: Yes
Constitutional: Denies Fever or Chills
Respiratory: Denies Cough or Trouble Breathing
Cardiac: Denies Chest Pain or Palpitations
Abdomen/GI: Denies Abdominal Pain, Nausea, Vomiting or Bloody Stools
: Denies Dysuria, Frequency, Flank Pain or Bleeding
Musculoskeletal: Denies Joint Pain or Edema
Neurological: Denies Dizzy or Headache
Physical Exam
Vital Signs
Vital Signs
Temp Pulse Resp BP Pulse Ox
98.7 F 71 12 118/62 97
09/02/23 22:28 09/03/23 00:30 09/03/23 00:30 09/03/23 00:20 09/03/23 00:30
Physical Exam
General: Other (67y F in no acute distress.)
HEENT: Moist mucous membranes and PERRLA
Respiratory: Clear; No Wheezes, Rales or Rhonchi
Cardiac: S1/S2 and Regular Rhythm
GI: Soft, Non Tender, Non Distended, Normal Bowel Sounds and Other (R sided ostomy with dark stool in device. No gross BRB.)
Musculoskeletal: No Clubbing, No Cyanosis and Other (Trace pedal / dependent edema.)
Skin: Other (Large / stage IV sacral ulcer without evident bleeding. LLE wound medial surface of the lower leg.)
Neuro: Awake and Alert
Laboratory Results
-
09/02/23 20:28
09/02/23 20:28
Laboratory Results
PT 18.6 Sec (11.4-14.6) H 09/02/23 20:28
INR 1.57 09/02/23 20:28
APTT 39.7 Sec (23.4-35.0) H 09/02/23 20:28
Total Bilirubin 0.2 mg/dl (0.2-1.3) 09/02/23 20:28
AST 44 U/L (14-36) H 09/02/23 20:28
ALT 51 U/L (0-35) H 09/02/23 20:28
Alkaline Phosphatase 74 U/L (38-126) 09/02/23 20:28
Impression/Plan
-
A/P: Patient is a 67y F with PMH significant for functional paraplegia s/p prior CVA and recent admission for large sacral ulcer requiring debridement and diverting colostomy who presents to ED from SNF for evaluation of abnormal lab result.
Acute Blood Loss Anemia on Anemia of Chronic Disease
Heme Positive Stool
- Admit for further evaluation and treatment.
- Hgb in the ED today is 6.1.
- While this is low, it should be noted that patient's baseline is 7 - 7.5.
- No gross blood loss despite heme pos stool in the ED in patient on ASA and Eliquis.
- Will hold Eliquis briefly.
- PRBCs x 1 units given in the ED.
- GI evaluation.
- Follow H&H for stability.
- Increase iron supplementation to BID.
- Monitor for any symptoms / complaints.
ASCVD
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
- Stable. No new neurologic deficits.
- Doing well at [facility] per .
- Continue current CV med regimen including ASA, statin, etc.
Stage IV Sacral Ulcer
- Stable. No obvious recurrent bleeding.
- Diverting ostomy and indwelling Gabriel to encourage / allow local healing.
- Wound Care eval during stay.
- Continue local care s/p debridement (08/02/23).
Seizure Disorder
- Stable. No recent seizure activity reported.
- Continue usual Keppra dosing.
Benign Hypertension
- Stable. Continue usual BP med regimen with holding parameters.
Anxiety / Depression
- Stable. Continue current med regimen.
DVT Prophylaxis
History of PE (June 2023)
- Hold Eliquis briefly / acutely.
- Resume if Hgb stable and no intervention is planned.
Code Status: DNR
[2023-09-03] MEDS: LIPITOR 80 MG PO (08:15)
[2023-09-03] MEDS: PROZAC 40 MG PO (08:15)
[2023-09-03] MEDS: ASPIR LOW (ENTERIC COATED) 81 MG PO (08:15)
[2023-09-03] MEDS: ZINC SULFATE 220 MG PO (08:15)
[2023-09-03] MEDS: VITAMIN C 500 MG PO (08:16)
[2023-09-03] MEDS: SANTYL OINTMENT 1 APPLIC TOPICAL (08:16)
[2023-09-03] MEDS: KCL 20 MEQ PO (08:16)
[2023-09-03] MEDS: COLACE 100 MG PO (08:16)
[2023-09-03] MEDS: THERAGRAN 1 TABLET PO (08:16)
[2023-09-03] MEDS: KEPPRA 500 MG PO ×2 (08:16→20:53)
[2023-09-03] MEDS: FEOSOL 325 MG PO ×2 (08:16→20:53)
[2023-09-03] MEDS: PLAQUENIL 200 MG PO ×2 (08:16→20:53)
[2023-09-03] MEDS: NORVASC 5 MG PO (08:18)
[2023-09-03 08:30] LABS: Hematocrit 25.7 % (37.0-47.0); Mean Corp Hgb Conc. 33.5 g/dL (33.0-37.0); Mean Corpuscular Hgb 29.8 pg (27.0-31.0); Mean Corpuscular Volume 88.9 fL (81.0-99.0); Mean Platelet Volume 9.2 fL (7.4-10.4); Platelet Count 535 10^3/uL (130-400); Red Blood Cell Count 2.89 10^6/uL (4.20-5.40); Red Cell Dist. Width 19.9 % (11.5-14.5); White Blood Cell Count 6.7 10^3/uL (4.8-10.8)
[2023-09-03 09:00] LABS: Hemoglobin 8.6 g/dL (12.0-16.0)
[2023-09-03 09:13] LABS: Blood Urea Nitrogen 11 mg/dl (7-17); Calcium 8.2 mg/dl (8.4-10.2); Carbon Dioxide 27 mmol/L (22-30); Chloride 106 mmol/L (98-107); Estimated Creatinine Clearance 57 ml/min; Glucose 73 mg/dl (70-99); Iron 38 ug/dl (37-170); Potassium 4.3 mmol/L (3.5-5.1); Sodium 136 mmol/L (135-145); eGFR > 60.00
[2023-09-03 09:23] LABS: Percent Saturation 19 % (20-50); Total Iron Binding Capacity 198 ug/dl (265-497)
--- NOTE | 2023-09-03 09:35 | CON.GI ---
Addendum entered and electronically signed by Judith Weaver MD 09/03/23 13:22:
I saw and examined the patient.
The SCREEN MAKER or PA's note was reviewed and I agree with the note.
Comment:
This patient is a 67-year-old woman with a history of a CVA with a fall as well as paraplegia. She does have a recent colostomy for diversion of a nonhealing sacral decubitus. She was sent by her nursing facility for a low hemoglobin. She has
been known to fluctuate her hemoglobin and has no overt bleeding.
abd: ostomy in place, soft
impression:
anemia likely multifactorial
pancreatic cyst
plan:
- EGD/colonoscopy at least 6 weeks after ostomy placement (now only 4 weeks)
- outpatient f/u of pancreatic cyst
will make outpatient f/u to evaluate prior to scheduling
will sign off call with questions
Addendum entered and electronically signed by NORBERT Casey 09/03/23 12:23:
plan on discharge reviewed with spouse. will arrange 3-4 week follow up with GI outpatient. Family to bring prior hbg and panc cyst imaging and await post-op period to proceed with EGD/colon after 6 weeks. If returns with anemia consider sooner
scope inpatient. sent message to Dr. Beaver.
Original Note:
Consultation
-
Date/Time Consultation Requested: 09/03/230
Date/Time Consultation Performed: 09/03/2330
Requesting Provider: Surendra Estrella DO
Performing Provider: NORBERT Prather, Judith Weaver MD
Reason for Consultation: anemia
Medical History
Chief Complaint / HPI
Chief Complaint: low blood count
History of Present Illness:
Pt is a 67yo with CVA x 2 last fall with resultant disability and paraplegia, b/l pylenephritis/cysitis, chronic urinary retention with parker, stage IV sacral decub with recent colostomy for diversion for healing, acute on chronic anemia, panc cyst
on imaging, HTN, hyperlipidemia, ASCVD, seizure disorder, PE june 2023, and anxiety/depression presents with recurrent admission for anemia. In reviewing chart only records from July and August in [facility] system 6-8 range. Spouse recalls anemia
in past but not clear on prior hbg. No hx Transfusions til last admission in July and iron studies not helpful as done post transfusion. Stool in ER brown heme +. Per staff noted some difficulty with swallowing pills this am but family denies
dysphagia, odynophagia, GERD, nausea, vomiting, abdominal pain, diarrhea, constipation or visible blood or black stools. Stools are dark but has been on iron therapy. No hx EGD or colonoscopy in past. chronic Eliquis use with hx CVA.
Past Medical History
Past Medical History: Other (b/l pylenephritis/cysitis, chronic urinary retention, stage IV sacral decub, CVA, HTN, hyperlipidemia, ASCVD, seizure disorder, PE june 2023, anemia of chronic disease,anxiety/depression)
Social History
Tobacco: Former Smoker (quit last fall)
Alcohol: Occasional
Drug: None
Personal:
Living: With Family (but recent SNF stay )
Employment: Retired
Family History
Family History: Other (no family hx colon Ca or polyps)
Allergies / Home Medications
Allergy/AdvReac Type Severity Reaction Status Date / Time
No Known Allergies Allergy Verified 08/20/23 21:40
�Medication �Instructions �Recorded
amlodipine 5 mg tablet 5 mg PO DAILY Blood Pressure 07/31/23
apixaban 5 mg tablet (Eliquis) 5 mg PO BID Blood Clot 07/31/23
Prevention/Tx
aspirin 81 mg capsule 81 mg PO DAILY Blood Clot 07/31/23
Prevention/Tx
atorvastatin 80 mg tablet 80 mg PO DAILY High Cholesterol 07/31/23
fluoxetine 40 mg capsule 40 mg PO DAILY Mental 07/31/23
Health/Anxiety
hydroxychloroquine 200 mg tablet 200 mg PO BID Autoimmune Disorder 07/31/23
levetiracetam 100 mg/mL oral 500 mg PO BID Neurological 07/31/23
solution (Keppra) Condition
mirtazapine 7.5 mg tablet 7.5 mg PO HS Mental Health/Anxiety 07/31/23
multivitamin 1 tab PO DAILY Supplement 07/31/23
collagenase clostridium histo. 250 1 applic topical DAILY #30 grams 08/12/23
unit/gram topical ointment (Santyl)
oxycodone 5 mg tablet 2.5 mg (1/2 x 5 mg) PO Q4H PRN 08/12/23
mild pain #7 tabs
potassium chloride 20 mEq 20 meq PO DAILY #30 tabs 08/20/23
tablet,extended release(part/cryst)
ascorbic acid (vitamin C) 500 mg 500 mg PO DAILY 09/03/23
tablet
ferrous sulfate 325 mg (65 mg 325 mg PO QPM 09/03/23
iron) tablet
oxycodone 5 mg tablet 5 mg PO HS 09/03/23
oxycodone 5 mg tablet 5 mg PO Q6HPRN PRN Severe pain 09/03/23
zinc sulfate 220 mg capsule 220 mg PO DAILY 09/03/23
Review of Systems
-
History Source: Patient and Family
Constitutional: Reports Weight Loss (few lbs with last admission) and Fatigue
EENT: Reports No Symptoms
Respiratory: Reports No Symptoms
Cardiac: Reports No Symptoms
Abdomen/GI: Reports Other (dark stools with iron use )
: Reports No Symptoms and Other (no gross hematuria )
Musculoskeletal: Reports No Symptoms
Skin: Reports No Symptoms
Neurological: Reports Weakness
Endocrine: Reports No Symptoms
Vital Signs
Temp Pulse Resp BP Pulse Ox
98.3 F 81 20 135/74 98
09/03/23 07:25 09/03/23 08:18 09/03/23 07:25 09/03/23 08:18 09/03/23 07:25
Physical Exam
Exam
General: Other (thin elderly female )
HEENT: Normocephalic and Anicteric
Respiratory: Clear
Cardiac: Regular Rhythm
GI: Soft, Non Tender and Non Distended
Musculoskeletal: No Clubbing and No Cyanosis
Skin: Warm and Dry
Neuro: Awake, Alert and Other (answer some one work questions )
Psych: Calm
Results
WBC 6.7 10^3/uL (4.8-10.8) 09/03/23 07:43
Hgb 8.6 g/dL (12.0-16.0) L D 09/03/23 07:43
Hct 25.7 % (37.0-47.0) L 09/03/23 07:43
MCV 88.9 fL (81.0-99.0) 09/03/23 07:43
Plt Count 535 10^3/uL (130-400) H 09/03/23 07:43
Absolute Neuts (auto) 4.6 10^3/uL (1.4-6.5) 09/02/23 20:28
PT 18.6 Sec (11.4-14.6) H 09/02/23 20:28
INR 1.57 09/02/23 20:28
APTT 39.7 Sec (23.4-35.0) H 09/02/23 20:28
Sodium 136 mmol/L (135-145) 09/03/23 07:43
Potassium 4.3 mmol/L (3.5-5.1) 09/03/23 07:43
Chloride 106 mmol/L (98-107) 09/03/23 07:43
Carbon Dioxide 27 mmol/L (22-30) 09/03/23 07:43
BUN 11 mg/dl (7-17) 09/03/23 07:43
Creatinine 0.4 mg/dL (0.6-1.0) L 09/03/23 07:43
Calcium 8.2 mg/dl (8.4-10.2) L 09/03/23 07:43
Total Bilirubin 0.2 mg/dl (0.2-1.3) 09/02/23 20:28
AST 44 U/L (14-36) H 09/02/23 20:28
ALT 51 U/L (0-35) H 09/02/23 20:28
Alkaline Phosphatase 74 U/L (38-126) 09/02/23 20:28
Diagnostic Image Results:
07/31/23 CT Abd/pelvis W Iv Cont
1. Findings suspicious for bilateral pyelonephritis. The bladder is decompressed with Parker catheter but appears thickened suggesting also a cystitis.
2. 15 x 9 mm hypodense lesion within the pancreatic head which may represent a cyst or intraductal mucinous neoplasm. No significant dilatation of the pancreatic duct.
3. Diffuse anasarca with sacral decubitus ulcer which abuts the inferior sacrum. No gross evidence for osteomyelitis.
4. Degenerative changes of both hips with sclerosis of both femoral heads which may represent degenerative change with avascular necrosis also within differential.
5. Additional findings above.
08/07/23 CR Abdomen, Portable - 1 View
Mild fecal material in the colon. Improved.
Developing fecal impaction should be considered. Stable.
Mild lower lumbar spinal levoscoliosis. Stable.
Prior GI Procedures:
EGD: none
Colonoscopy: none
Assessment / Plan
-
Pt is a 67yo with CVA x 2 last fall with resultant disability and paraplegia, b/l pylenephritis/cysitis, chronic urinary retention with parker, stage IV sacral decub with recent colostomy for diversion for healing, acute on chronic anemia, panc cyst
on CT, HTN, hyperlipidemia, ASCVD, seizure disorder, PE june 2023, and anxiety/depression presents with recurrent admission for anemia. In reviewing chart only records from July and August in [facility] system 6-8 range. Spouse recalls anemia in
past but not clear on prior hbg. No hx Transfusions til last admission in July and iron studies not helpful as done post transfusion. Stool in ER brown heme +. Per staff noted some difficulty with swallowing pills this am but family denies
dysphagia, odynophagia, GERD, nausea, vomiting, abdominal pain, diarrhea, constipation or visible blood or black stools. Stools are dark but has been on iron therapy. No hx EGD or colonoscopy in past. chronic Eliquis use with hx CVA.
-normocytic anemia
-heme + dark stool in ostomy possible iron related vs other
-hx CVA /paraplegia on Eliquis prior to admission
-stage IV sacral decub with recent diverting ostomy
-CT with pancreatic lesion 15 x9 mm cyst vs IPMN
-reported pill dysphagia per staff
-recent pyelo/UTI/sepsis
-thrombocytosis
-elevated LFT's
other med problems:
-PE june 2023
-ASCVD
-seizure disorder
-HTN
PLAN:
etiology of anemia unclear may be chronic issues with sacral decub but cannot rule out any other etiology such as colon mass, PUD, ectasia vs other
agree with transfusion total of 4 units given this admission
iron studies not helpful done post transfusion
clear diet ok for low residue later today
hold Eliquis last dose ? PM [address] Weaver for EGD/colon may consider OP so further post-op
will review panc lesion with Dr. Weaver noted on CT
reviewed with Dr. Collado soonest can do post op 6 weeks ideally and 4 weeks if active bleeding and more urgent
hold oral iron if case proceed with colonoscopy
some mild elevated transamines - etiology unclear normal in early July may be relate with recent infection vs other
reviewed risk vs benefit with pt and family with multiple med issues, debility with risk of bleeding, infection, perforation vs proceeding with further work up for recurrent anemia
spouse would be agreeable to proceed
also discussed if patient would be able to proceed with prep unsure if can take volume with Colyte and unsure if SNF could get sutab and pt could take 24 tablets
spouse asking about plan if for OP testing per hospitalist if able to be discharged today
-
-
Thank you for consultation and allowing me to participate in the patient's care. Please call the electronics engineering professor GI physician during the after hours with any questions or concerns.
--- NOTE | 2023-09-03 12:02 | W.PN.HOSP.TC ---
Addendum entered and electronically signed by Adrian Beaver MD 09/03/23 13:52:
I saw and evaluated the patient. I reviewed the resident�s note and agree with findings and plan as documented in the resident�s note.
Original Note:
Today's Communication/Plan
-
Patient received 1 PRBC in the emergency department before being transferred inpatient. Patient has been advanced to a low residue diet and we will assess if she is able to tolerate it. If diet is tolerated and hemoglobin and hematocrit are within
normal limits we will move forward with discharge. Patient has spoken to GI and has been advised to follow-up in the outpatient setting.
Assessment / Plan
Assessment / Plan
Active presentation: Patient is a 67-year-old female with a past medical history significant for functional paraplegia from a prior CVA and recent admission for large sacral ulcer requiring debridement and diverting colostomy.
- Acute Blood Loss Anemia on Anemia of Chronic Disease:
Heme positive stool
Hgb in ED was 6.1 - patient's baseline appears to be 7-7.5 based on prior labs from other admissions
Holding Eliquis
PRBCs 1 pack given in ED
GI evaluation -gastroenterology suspected that the dark stools may be a consequence of iron therapy. They recommended that the patient be on a clear diet but should be later advanced to a low residue diet later in the day. Pancreatic lesion noted
on CT.
Following hemoglobin and hematocrit
Increased iron supplementation to twice daily
Continue to monitor for any symptoms and complaint
- Functional paraplegia as late effects from CVA: Stable
No new neurologic deficit
Doing well at SNF per
- Atherosclerotic cardiovascular disease without angina pectoris: Stable
Continuing current cardiovascular med regimen regimen including ASA, statin, amlodipine
- Stage IV sacral ulcer present on admission: Stable
No obvious recurrent bleeding
Diverting ostomy and indwelling Gabriel to encourage/allow local healing
Wound care will continue to follow the patient
Continue care of the wound s/p debridement on 08/02/2023
- Seizure disorder: Stable
No recent seizure activity reported
Continue usual Keppra dosing
- Benign hypertension: Stable
Continue usual blood pressure med regimen with holding parameters
- Anxiety/depression: Stable
Continue current med regimen
DVT prophylaxis: Patient has a history of PE that occurred on June 2023. Holding Eliquis briefly/acutely. We will resume Eliquis if hemoglobin is stable and no intervention is planned.
Anticipated Discharge: 24 - 48 hours
Subjective/Interval History
-
Date of Service: September 03, 2023
Patient at the bedside. Patient is worried about her difficulty moving her legs. She is anxious and answers questions and short manner. She does not have any pain or complaints.
Objective Data
-
Labs:
Laboratory Results
09/03/23
07:43
WBC 6.7
Hgb 8.6 L D
Hct 25.7 L
Plt Count 535 H
Sodium 136
Potassium 4.3
Chloride 106
Carbon Dioxide 27
BUN 11
Creatinine 0.4 L
Glucose 73
Calcium 8.2 L
Vital Signs:
Vital Signs
Temp Pulse Resp BP Pulse Ox
98.3 F 81 20 135/74 98
09/03/23 07:25 09/03/23 08:18 09/03/23 07:25 09/03/23 08:18 09/03/23 07:25
I&O
09/02/23 09/03/23 09/04/23
06:59 06:59 06:59
Intake Total 250 / 250
Output Total 450 / 450
Balance -200 / -200
Review of Systems
-
History Source: Patient
Constitutional: Reports Fatigue
EENT: Reports No Symptoms Reported
Respiratory: Reports No Symptoms
Cardiac: Reports No Symptoms
Breast: Reports No Symptoms
Genitourinary: Reports No Symptoms
Musculoskeletal: Reports Muscle Weakness (Unable to move her legs)
Skin: Reports No Symptoms
Neuro: Reports No Symptoms
Endocrine: Reports No Symptoms
Hematologic / Lymphatic: Reports No Symptoms
Allergy / Immunology: Reports No Symptoms
Physical Exam
-
General: Cachectic
HEENT: Normocephalic, Atraumatic and Moist Mucous Membranes
Respiratory: Clear to Auscultation
Cardiac: Regular Rhythm and S1/S2
Breast: Deferred by me
GI: Soft, Nontender, Nondistended, Normal Bowel Sounds and Ostomy (R sided ostomy with dark stool in device)
Rectal: Deferred by Provider
Genito-urinary: Gabriel
Musculoskeletal: No Clubbing, No Cyanosis and No Edema
Skin: Ulcers (Large / stage IV sacral ulcer without evident bleeding)
[2023-09-03] MEDS: TYLENOL 650 MG PO (12:28)
[2023-09-03] MEDS: COLACE PO (20:53)
[2023-09-03] MEDS: REMERON 7.5 MG PO (21:08)
[2023-09-03] MEDS: ROXICODONE 5 MG PO (21:08)
[2023-09-03] MEDS: SENOKOT PO (21:08)
[2023-09-04 07:55] VITALS: BP 124/66
[2023-09-04 08:04] LABS: Hematocrit 25.9 % (37.0-47.0); Hemoglobin 8.4 g/dL (12.0-16.0); Mean Corp Hgb Conc. 32.4 g/dL (33.0-37.0); Mean Corpuscular Hgb 28.5 pg (27.0-31.0); Mean Corpuscular Volume 87.8 fL (81.0-99.0); Red Blood Cell Count 2.95 10^6/uL (4.20-5.40); Red Cell Dist. Width 19.2 % (11.5-14.5); White Blood Cell Count 9.1 10^3/uL (4.8-10.8)
[2023-09-04 08:35] LABS: ALT (SGPT) 44 U/L (0-35); AST (SGOT) 39 U/L (14-36); Albumin 2.5 g/dl (3.5-5.0); Alkaline Phosphatase 72 U/L (38-126); Blood Urea Nitrogen 9 mg/dl (7-17); Calcium 8.5 mg/dl (8.4-10.2); Carbon Dioxide 23 mmol/L (22-30); Chloride 107 mmol/L (98-107); Estimated Creatinine Clearance 57 ml/min; Glucose 57 mg/dl (70-99); Potassium 4.4 mmol/L (3.5-5.1); Sodium 137 mmol/L (135-145); Total Bilirubin 0.4 mg/dl (0.2-1.3); Total Protein 5.3 g/dl (6.3-8.2); eGFR > 60.00
[2023-09-04 09:22] LABS: Mean Platelet Volume 10.7 fL (7.4-10.4); Platelet Count 351 10^3/uL (130-400)
[2023-09-04 09:23] LABS: Glucose - Point of Care 123 mg/dl (70-99)
[2023-09-04] MEDS: PLAQUENIL 200 MG PO ×2 (09:26→20:29)
[2023-09-04] MEDS: VITAMIN C 500 MG PO (09:26)
[2023-09-04] MEDS: NORVASC 5 MG PO (09:26)
[2023-09-04] MEDS: ASPIR LOW (ENTERIC COATED) 81 MG PO (09:26)
[2023-09-04] MEDS: COLACE 100 MG PO (09:26)
[2023-09-04] MEDS: ZINC SULFATE 220 MG PO (09:27)
[2023-09-04] MEDS: LIPITOR 80 MG PO (09:27)
[2023-09-04] MEDS: THERAGRAN 1 TABLET PO (09:27)
[2023-09-04] MEDS: FEOSOL 325 MG PO ×2 (09:27→20:29)
[2023-09-04] MEDS: SANTYL OINTMENT 1 APPLIC TOPICAL (09:28)
[2023-09-04] MEDS: KCL 20 MEQ PO (09:28)
[2023-09-04] MEDS: KEPPRA 500 MG PO ×2 (09:28→20:29)
[2023-09-04] MEDS: PROZAC 40 MG PO (09:28)
[2023-09-04] MEDS: ROXICODONE 5 MG PO ×2 (11:40→21:06)
--- NOTE | 2023-09-04 11:45 | W.PN.HOSP.TC ---
Today's Communication/Plan
-
DC
Assessment / Plan
Assessment / Plan
Active presentation: Patient is a 67-year-old female with a past medical history significant for functional paraplegia from a prior CVA and recent admission for large sacral ulcer requiring debridement and diverting colostomy.
- Acute Blood Loss Anemia on Anemia of Chronic Disease:
Heme positive stool
Hgb in ED was 6.1 - patient's baseline appears to be 7-7.5 based on prior labs from other admissions
PRBCs 1 pack given in ED
GI evaluation -gastroenterology suspected that the dark stools may be a consequence of iron therapy. No planned interventions by GI. Follow for now. [place] in 6 weeks ideally with new ostomy.
Following hemoglobin and hematocrit improved and stable
Increased iron supplementation to twice daily
Continue to monitor for any symptoms and complaint
- Functional paraplegia as late effects from CVA: Stable
No new neurologic deficit
Doing well at SNF per
- Atherosclerotic cardiovascular disease without angina pectoris: Stable
Continuing current cardiovascular med regimen regimen including ASA, statin, amlodipine
- Stage IV sacral ulcer present on admission: Stable
No obvious recurrent bleeding
Diverting ostomy and indwelling Gabriel to encourage/allow local healing
Wound care will continue to follow the patient
Continue care of the wound s/p debridement on 08/02/2023
- Seizure disorder: Stable
No recent seizure activity reported
Continue usual Keppra dosing
- Benign hypertension: Stable
Continue usual blood pressure med regimen with holding parameters
- Anxiety/depression: Stable
Continue current med regimen
DVT prophylaxis: Patient has a history of PE that occurred on June 2023. Resume Eliquis as hemoglobin is stable and no intervention are planned.
Medically stable for dc today
Left a message to her on his voicemail.
Anticipated Discharge: Today
Subjective/Interval History
-
Date of Service: September 04, 2023
Voices no specific complaints. Tolerating diet.
Objective Data
-
Labs:
Laboratory Results
09/04/23
06:08
WBC 9.1
Hgb 8.4 L
Hct 25.9 L
Plt Count 351 D
Sodium 137
Potassium 4.4
Chloride 107
Carbon Dioxide 23
BUN 9
Creatinine 0.3 L
Glucose 57 L
Calcium 8.5
Total Bilirubin 0.4
AST 39 H
ALT 44 H
Alkaline Phosphatase 72
Vital Signs:
Vital Signs
Temp Pulse Resp BP Pulse Ox
99 F 87 16 124/66 94
09/04/23 07:55 09/04/23 09:26 09/04/23 07:55 09/04/23 09:26 09/04/23 07:55
I&O
09/03/23 09/04/23 09/05/23
06:59 06:59 06:59
Intake Total 250 / 250 300 / 300
Output Total 450 / 450 1500 / 1500 50 / 50
Balance -200 / -200 -1200 / -1200 -50 / -50
Review of Systems
-
Constitutional: Denies Fever
Respiratory: Denies Trouble Breathing
Cardiac: Denies Chest Pain or Palpitations
Abdomen/GI: Denies Abdominal Pain, Nausea or Vomiting
Neuro: Denies Dizzy
Physical Exam
-
General: No Apparent Distress
HEENT: Moist Mucous Membranes
Respiratory: Non Labored Respirations; Negative Accessory Resp Muscle Use
Cardiac: Regular Rhythm and S1/S2; Negative Murmur
GI: Soft, Nontender and Ostomy (Brown stool )
Neuro: AO x 3
Data Reviewed
-
Labs: Labs Reviewed by me
--- NOTE | 2023-09-04 11:56 | W.DS.TRANS ---
DC Summary - Projection Printer
-
Discharge Instructions:
Discharge Diagnosis/Procedures Severe anemia needing blood transfusion ; no
overt GI bleeding.
Diet Regular
Activity As tolerated
Driving Restrictions No driving
Blood Work CBC in one week
Instructions:
Stand-Alone Forms:
Changes to Home Medications: Yes
Discharge Medications:
DC Medications w/original date entered in [employer]
amlodipine 5 mg tablet 5 mg PO DAILY Blood Pressure 07/31/23
apixaban 5 mg tablet (Eliquis) 5 mg PO BID Blood Clot Prevention/Tx 07/31/23
aspirin 81 mg capsule 81 mg PO DAILY Blood Clot Prevention/Tx 07/31/23
atorvastatin 80 mg tablet 80 mg PO DAILY High Cholesterol 07/31/23
fluoxetine 40 mg capsule 40 mg PO DAILY Mental Health/Anxiety 07/31/23
hydroxychloroquine 200 mg tablet 200 mg PO BID Autoimmune Disorder 07/31/23
levetiracetam 100 mg/mL oral solution (Keppra) 500 mg PO BID Neurological Condition 07/31/23
mirtazapine 7.5 mg tablet 7.5 mg PO HS Mental Health/Anxiety 07/31/23
multivitamin 1 tab PO DAILY Supplement 07/31/23
collagenase clostridium histo. 250 unit/gram topical ointment (Santyl) 1 applic topical DAILY #30 grams 08/12/23
oxycodone 5 mg tablet 2.5 mg (1/2 x 5 mg) PO Q4H PRN mild pain #7 tabs 08/12/23
potassium chloride 20 mEq tablet,extended release(part/cryst) 20 meq PO DAILY #30 tabs 08/20/23
ascorbic acid (vitamin C) 500 mg tablet 500 mg PO DAILY Supplement 09/03/23
ferrous sulfate 325 mg (65 mg iron) tablet 325 mg PO QPM Supplement 09/03/23
oxycodone 5 mg tablet 5 mg PO HS Pain 09/03/23
oxycodone 5 mg tablet 5 mg PO Q6HPRN PRN Severe pain 09/03/23
zinc sulfate 220 mg capsule 220 mg PO DAILY Supplement 09/03/23
docusate sodium 100 mg capsule 100 mg PO BID #1 cap 09/04/23
sennosides 8.6 mg tablet (Senna Laxative) 17.2 mg (2 x 8.6 mg) PO HS #1 tab 09/04/23
Home Medication Changes
New Medication-Colace and senna
Pending Results: No
--- NOTE | 2023-09-04 12:10 | CM ---
Addendum entered by Jolly Randolph 09/04/23 12:20:
[employer] auth submitted via [employer]
Pending auth# [id number]
Clinicals faxed to [employer]
Original Note:
CM reviewed chart and noted dc order
Pt admitted to from 08/01/23-08/12/23 for sacral wound resulting in diverting sigmoid colostomy
Was discharged to [facility] for rehab
Prior her to July 2023 admission, pt resides with her spouse in a 3SH
Pt has a 1st floro set up with hospital bed, tilt in space WC, commode
Pt has a functional paraplegia and spouse assists with all ADLs and personal care tasks
She was starting to perform OT tasks like feeding self with adaptive equipment
As pt out of SNF for more than 24 hours, will need new [employer] per admission Trenice
Return referral sent via [facility] and update tp pt and spouse bedside
Discharge Disposition-return to [facility] for STR
--- NOTE | 2023-09-04 12:53 | W.DCSUMMARY ---
Discharge Summary
Discharge Data
Date of Admission: 09/03/23
Date of Discharge: 09/07/23
-
Pending Results: No
Hospital Course
Patient is a 67-year-old female with a past medical history of CVA with resultant functional paraplegia and recent admission for sacral wound including diverting sigmoid colostomy who presented to the [facility] emergency department with local SNF
for evaluation of abnormal outpatient lab. Patient had been doing very well at the SNF for since her prior admission on 07/31 to 08/14. Her noted that he was with her all day on the day of her presentation and that she was feeling very well.
In the emergency department she denied any complaints. She did not notice any gross blood loss. On routine labs her hemoglobin was low which prompted the staff at the [facility] to send her to the emergency department for evaluation. In the emergency
department stool samples were heme positive. Labs showed hemoglobin at 6.1. 1 unit of PRBCs were given in the emergency department. Patient was admitted to [facility] for severe anemia needing blood transfusion.
After admission to [facility] her labs were monitored for low hemoglobin. Eliquis was held. GI was consulted which suspected that the dark stools on presentation to the emergency department may have been a consequence of iron therapy. She
was initially on a clear diet but later advanced to a low residue diet that she tolerated well. Iron supplementation was increased to twice daily. Wound care continue to follow the patient's sacral ulcer and treat the lesion. Patient's hemoglobin
appears to be at baseline resting between around 8.6 and 8.4. The patient believes that she is at her baseline and wants to go home back to the SNF as she is being taken care of well over there. She believes that they adequately treating her
sacral ulcer wound. Discharge planning was initiated.
The patient has reached maximal benefit from this hospital admission and is appropriate for discharge at the present time. Patient's lab values have stabilized and her hemoglobin is at its baseline. Patient offers no complaints and is ready to go
back to her SNF. Patient has been advised to follow-up with her primary care provider and steam cleaner in the outpatient setting. Anand was added to her medication regimen. Patient has been recommended to get a follow-up CBC
conducted in 1 week to ensure that her hemoglobin levels are stable.
Discharge Plan
-
Patient Disposition: Fdc/SNF
Discharge Diagnosis/Procedures: Severe anemia needing blood transfusion ; no overt GI bleeding.
Diet: Regular
Activity: As tolerated
Driving Restrictions: No driving
Blood Work: CBC in one week
Activity Restrictions/Additional Instructions:
Wound Care Instructions
Sacral wound-clean with Vashe or 1/4 strength Dakin's solution. Miconazole powder to red periwound skin followed by no sting barrier wipe, Santyl ointment to necrotic tissue, alginate, gauze pads, cover with abd pad or silicone foam, change bid and
prn drainage.
LLE wound-clean with saline, silicone border foam, change q 3 days and prn loosened dressing.
Air mattress
Turning schedule
Elevate heels off bed; pillow between legs.
Follow up at wound care center call for an appointment.
Referrals:
Judith Weaver MD [Active] - (3-4 week follow up with [facility]E and Dr. Weaver to review for pancreatic cyst, EGD and colonoscopy with anemia. )
Bina Jordan MD [Family Provider] - in one week
Prescriptions:
New
docusate sodium 100 mg Capsule
100 mg PO BID Qty: 1 0RF
sennosides [Senna Laxative] 8.6 mg Tablet
17.2 mg PO HS Qty: 1 0RF
cephalexin 500 mg Capsule
500 mg PO QID Qty: 30 0RF
Continued
multivitamin Tablet
1 tab PO DAILY
fluoxetine 40 mg Capsule
40 mg PO DAILY
atorvastatin 80 mg Tablet
80 mg PO DAILY
amlodipine 5 mg Tablet
5 mg PO DAILY
hydroxychloroquine 200 mg Tablet
200 mg PO BID
levetiracetam [Keppra] 100 mg/mL Solution
500 mg PO BID
mirtazapine 7.5 mg Tablet
7.5 mg PO HS
Eliquis 5 mg Tablet
5 mg PO BID
aspirin 81 mg Capsule
81 mg PO DAILY
Santyl 250 unit/gram Ointment
1 applic topical DAILY Qty: 30 0RF
oxycodone 5 mg tablet
2.5 mg PO Q4H PRN (Reason: mild pain) Qty: 7 0RF
potassium chloride 20 mEq tablet,ER particles/crystals
20 meq PO DAILY Qty: 30 0RF
ascorbic acid (vitamin C) 500 mg Tablet
500 mg PO DAILY
ferrous sulfate 325 mg (65 mg iron) Tablet
325 mg PO QPM
zinc sulfate 220 mg Capsule
220 mg PO DAILY
oxycodone 5 mg Tablet
5 mg PO HS
oxycodone 5 mg tablet
5 mg PO Q6HPRN PRN (Reason: Severe pain)
Discharge Orders:
Discharge Patient (As Directed); Ordered 09/07/23
Ordered By: Jone Banuelos
Discharge Date and Time
Print Language: DJIBOUTIAN
[2023-09-04 15:12] VITALS: BP 123/80
[2023-09-04] MEDS: COLACE PO ×2 (20:29→20:33)
[2023-09-04] MEDS: SENOKOT PO (21:06)
[2023-09-04] MEDS: REMERON 7.5 MG PO (21:06)
[2023-09-04 23:39] VITALS: BP 131/59
--- NOTE | 2023-09-05 07:16 | PTCARENOTE ---
Pts urine cloudy with large amounts of sediment, green in color. House WRAPAROUND FACILITATOR aware- urine sent.
[2023-09-05 07:34] LABS: Urine Albumin Trace (Neg - Trace); Urine Bilirubin Negative (Negative); Urine Character Very Cloudy (Clear); Urine Color Straw; Urine Glucose Negative (Negative); Urine Ketone Negative (Negative); Urine Leukocyte 2+ (Negative); Urine Nitrite Positive (Negative); Urine Occult Blood 3+ (Negative); Urine Urobilinogen Negative (Neg - 1+)
[2023-09-05 07:47] LABS: Urine Bacteria Many (Negative); Urine Squamous Cell 0-2 /LPF (Few)
[2023-09-05 07:48] LABS: Urine White Cell 26-30 /HPF (0-5)
[2023-09-05 07:55] VITALS: BP 80/55
[2023-09-05] MEDS: KEPPRA 500 MG PO ×2 (09:16→20:54)
[2023-09-05] MEDS: LIPITOR 80 MG PO (09:16)
[2023-09-05] MEDS: THERAGRAN 1 TABLET PO (09:16)
[2023-09-05] MEDS: FEOSOL 325 MG PO ×2 (09:16→20:55)
[2023-09-05] MEDS: ZINC SULFATE 220 MG PO (09:16)
[2023-09-05] MEDS: PROZAC 40 MG PO (09:16)
[2023-09-05] MEDS: COLACE 100 MG PO (09:16)
[2023-09-05] MEDS: SANTYL OINTMENT 1 APPLIC TOPICAL ×2 (09:17→20:54)
[2023-09-05] MEDS: ASPIR LOW (ENTERIC COATED) 81 MG PO (09:17)
[2023-09-05] MEDS: VITAMIN C 500 MG PO (09:17)
[2023-09-05] MEDS: KCL 20 MEQ PO (09:17)
[2023-09-05] MEDS: NORVASC 5 MG PO (09:17)
[2023-09-05] MEDS: PLAQUENIL 200 MG PO ×2 (09:17→20:54)
[2023-09-05] MEDS: ROCEPHIN 2000 MG IV (09:18)
[2023-09-05] MEDS: STERILE WATER FOR INJECTION 20 ML IV (09:19)
[2023-09-05] MEDS: NSS 500 IV (09:43)
--- NOTE | 2023-09-05 09:44 | W.PN.HOSP.TC ---
Addendum entered and electronically signed by Elly Pickering MD 09/05/23 20:08:
I saw and evaluated the patient independently. I reviewed the resident�s note and agree with findings and plan as documented by Dr. Banuelos.
GENERAL: well developed, well nourished, female in no apparent distress
HEENT: NC/AT
HEART: regular rate and rhythm, +S1, +S2
LUNGS : clear to auscultation bilaterally
ABDOM: soft, nontender, nondistended, + bowel sounds
EXT: no cyanosis, clubbing, or edema
NEUROLOGIC: bedbound
Acute Blood Loss Anemia on Anemia of Chronic Disease-- HGB on admission 6.1--no planned GI interventions--s/p pRBC 1 unit--HGB 8.4--patient's baseline appears to be 7-7.5 based on prior labs from other admissions--gastroenterology suspected that the
dark stools may be a consequence of iron therapy. No planned interventions by GI-- Colonoscopy in 6 weeks ideally with new ostomy--Increased iron supplementation to twice daily
UTI-- Possible infection due to urinary catheter -monitoring and treating--urine culture pending--cont rocephin and await cultures
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
Atherosclerotic cardiovascular disease without angina pectoris: Stable--Continuing current cardiovascular med regimen regimen including ASA, statin, amlodipine
Stage IV sacral ulcer present on admission: Stable--apprec wound care--Diverting ostomy and indwelling Gabriel to encourage/allow local healing-- s/p debridement on 08/02/2023
Seizure disorder: Stable--No recent seizure activity reported--Continue usual Keppra dosing
Benign hypertension: Stable--Continue usual blood pressure med regimen with holding parameters
Anxiety/depression: Stable--Continue current med regimen
DVT proph
code status -- DNR
Original Note:
Today's Communication/Plan
-
Patient discharge has been delayed due to need for authorization for SNF. Patient has a UTI and urine analysis confirms it. Given IV Rocephin 2000 mg. Will get follow-up urine cultures to determine if UTI is resolving.
Assessment / Plan
Assessment / Plan
Active presentation: Patient is a 67-year-old female with a past medical history significant for functional paraplegia from a prior CVA and recent admission for large sacral ulcer requiring debridement and diverting colostomy.
- Acute Blood Loss Anemia on Anemia of Chronic Disease:
Heme positive stool
Hgb in ED was 6.1 - patient's baseline appears to be 7-7.5 based on prior labs from other admissions
PRBCs 1 pack given in ED
GI evaluation -gastroenterology suspected that the dark stools may be a consequence of iron therapy. No planned interventions by GI. Follow for now. [place] in 6 weeks ideally with new ostomy.
Following hemoglobin and hematocrit improved and stable
Increased iron supplementation to twice daily
Continue to monitor for any symptoms and complaint
- UTI: Possible infection due to urinary catheter -monitoring and treating
Urine occult blood was 3+, urine nitrate was positive, urine leukocyte Estrace was 2+, RBCs and WBCs were detected in the urine, and many bacteria were seen.
Rocephin 2000 mg IV given
Repeat UA
- Functional paraplegia as late effects from CVA: Stable
No new neurologic deficit
Doing well at SNF per
- Atherosclerotic cardiovascular disease without angina pectoris: Stable
Continuing current cardiovascular med regimen regimen including ASA, statin, amlodipine
- Stage IV sacral ulcer present on admission: Stable
No obvious recurrent bleeding
Diverting ostomy and indwelling Gabriel to encourage/allow local healing
Wound care will continue to follow the patient
Continue care of the wound s/p debridement on 08/02/2023
- Seizure disorder: Stable
No recent seizure activity reported
Continue usual Keppra dosing
- Benign hypertension: Stable
Continue usual blood pressure med regimen with holding parameters
- Anxiety/depression: Stable
Continue current med regimen
DVT prophylaxis: Patient has a history of PE that occurred on June 2023. Resume Eliquis as hemoglobin is stable and no intervention are planned.
Anticipated Discharge: 24 - 48 hours
Subjective/Interval History
-
Date of Service: September 05, 2023
Met with patient at the bedside. Patient is quiet and not eager to speak. She seems confused at times and worries that her is left her even though he recently shared that she is the love of his life. was seen at the bedside
yesterday and also later on that day. Patient seemed at ease when the was present.
Objective Data
-
Labs:
Laboratory Results
09/05/23
:15
WBC Pending
Hgb Pending
Hct Pending
Plt Count Pending
Sodium Pending
Potassium Pending
Chloride Pending
Carbon Dioxide Pending
BUN Pending
Creatinine Pending
Glucose Pending
Calcium Pending
Total Bilirubin Pending
AST Pending
ALT Pending
Alkaline Phosphatase Pending
Vital Signs:
Vital Signs
Temp Pulse Resp BP Pulse Ox
97.9 F 83 18 113/64 100
09/05/23 07:55 09/05/23 09:17 09/05/23 07:55 09/05/23 09:17 09/05/23 07:55
I&O
09/04/23 09/05/23 09/06/23
06:59 06:59 06:59
Intake Total 300 / 300 240 / 240
Output Total 1500 / 1500 800 / 800
Balance -1200 / -1200 -560 / -560
[2023-09-05] MEDS: NSS 1000 IV ×2 (10:08→17:51)
[2023-09-05 10:23] LABS: ALT (SGPT) 38 U/L (0-35); AST (SGOT) 28 U/L (14-36); Albumin 2.5 g/dl (3.5-5.0); Alkaline Phosphatase 72 U/L (38-126); Blood Urea Nitrogen 9 mg/dl (7-17); Calcium 8.3 mg/dl (8.4-10.2); Carbon Dioxide 26 mmol/L (22-30); Chloride 105 mmol/L (98-107); Estimated Creatinine Clearance 57 ml/min; Glucose 68 mg/dl (70-99); Potassium 4.4 mmol/L (3.5-5.1); Sodium 134 mmol/L (135-145); Total Bilirubin 0.3 mg/dl (0.2-1.3); Total Protein 5.1 g/dl (6.3-8.2); eGFR > 60.00
[2023-09-05 12:23] LABS: Hematocrit 25.5 % (37.0-47.0); Hemoglobin 8.4 g/dL (12.0-16.0); Mean Corp Hgb Conc. 32.9 g/dL (33.0-37.0); Mean Corpuscular Hgb 28.8 pg (27.0-31.0); Mean Corpuscular Volume 87.3 fL (81.0-99.0); Mean Platelet Volume 9.5 fL (7.4-10.4); Platelet Count 555 10^3/uL (130-400); Red Blood Cell Count 2.92 10^6/uL (4.20-5.40); Red Cell Dist. Width 17.9 % (11.5-14.5); White Blood Cell Count 7.3 10^3/uL (4.8-10.8)
--- NOTE | 2023-09-05 13:28 | WOUNDNOTE ---
[facility] RN note: Patient admitted with GI bleed, anemia. Patient to do back to SNF when discharged. present.
See H&P for complete history.
PMH: CVA, functional paraplegia, recent admission at last month, s/p sacral debridement and diverting colostomy, ASCVD, HTN, seizure disorder, PE (Eliquis), anemia, anxiety/depression.
Wound Location and type/assessment: Patient admitted with: sacral stage 4 pressure injury, pink with ramirez slough, improved since last debrided last month. Large amount of yellow green odorous drainage. Mild erythema around wound. L medial knee stage
2 pressure injury vs abrasion. L lateral ankle mild red and intact (scar?).
Appetite: improved since last admission.
Pressure redistribution devices in place: Waffle air overlay. Air chair cushion. Patient contracted and immobile.
Plan: Sacral dressing changed. LLE dressing changed. Colostomy appliance changed using [place] wafer # [id number] and Ashley pouch #[id number]. Stoma pink, budded, 1 inch diameter. Peristomal skin intact. Stool dark brown and soft/loose. Patient turned
with help from PCT June. Pillow between legs. Air chair cushion under heels/ankles. Extra colostomy appliance left in room.
Updated and confirmed orders with Dr. Pickering and updated RN Farhana.
Care plan to be updated and will follow as needed.
Recommend follow up at wound care center upon discharge.
[2023-09-05 15:32] VITALS: BP 94/53
--- NOTE | 2023-09-05 16:00 | CM ---
Pending auth from [facility], CM updated liaison from [place] and sent request for line maintenance supervisor to review patient case at [facility]. Patient also present and indicated that he was really happy for the care at the facility. CM will continue to follow for
discharge planning needs.
Plan; SNF pending auth
[2023-09-05] MEDS: ROXICODONE 5 MG PO ×2 (16:16→22:12)
[2023-09-05] MEDS: COLACE PO (20:51)
[2023-09-05] MEDS: DAKIN'S SOLUTION 0.125% 1/4 STRENGTH 473 ML TOPICAL (21:01)
[2023-09-05] MEDS: DESENEX/MITRAZOL/ZEASORB 1 APPLIC TOPICAL (21:01)
[2023-09-05] MEDS: REMERON 7.5 MG PO (22:12)
[2023-09-05] MEDS: SENOKOT PO (22:13)
[2023-09-05 23:35] VITALS: BP 115/72
[2023-09-06] MEDS: NSS 1000 IV ×2 (01:47→09:54)
[2023-09-06 06:22] LABS: Urine Albumin Trace (Neg - Trace); Urine Bilirubin Negative (Negative); Urine Character Very Cloudy (Clear); Urine Color Yellow; Urine Glucose Negative (Negative); Urine Ketone Negative (Negative); Urine Leukocyte 2+ (Negative); Urine Nitrite Positive (Negative); Urine Occult Blood 2+ (Negative); Urine Urobilinogen Negative (Neg - 1+)
[2023-09-06 07:26] LABS: Urine White Cell 40-50 /HPF (0-5)
[2023-09-06 07:27] LABS: Urine Bacteria Moderate (Negative)
[2023-09-06 07:40] VITALS: BP 112/58
[2023-09-06 07:43] LABS: Hematocrit 24.2 % (37.0-47.0); Hemoglobin 7.7 g/dL (12.0-16.0); Mean Corp Hgb Conc. 31.8 g/dL (33.0-37.0); Mean Corpuscular Hgb 28.3 pg (27.0-31.0); Mean Platelet Volume 9.3 fL (7.4-10.4); Platelet Count 470 10^3/uL (130-400); Red Blood Cell Count 2.72 10^6/uL (4.20-5.40); Red Cell Dist. Width 17.2 % (11.5-14.5); White Blood Cell Count 7.8 10^3/uL (4.8-10.8)
[2023-09-06 07:53] LABS: ALT (SGPT) 31 U/L (0-35); AST (SGOT) 24 U/L (14-36); Albumin 2.2 g/dl (3.5-5.0); Alkaline Phosphatase 67 U/L (38-126); Blood Urea Nitrogen 7 mg/dl (7-17); Calcium 7.8 mg/dl (8.4-10.2); Carbon Dioxide 22 mmol/L (22-30); Chloride 110 mmol/L (98-107); Estimated Creatinine Clearance 57 ml/min; Glucose 62 mg/dl (70-99); Potassium 3.9 mmol/L (3.5-5.1); Sodium 138 mmol/L (135-145); Total Bilirubin 0.2 mg/dl (0.2-1.3); Total Protein 4.7 g/dl (6.3-8.2); eGFR > 60.00
--- NOTE | 2023-09-06 09:23 | PN.CDI ---
CDI
- -
CDI:
Physician Documentation Request
Admit Date: 09/03/23 01:[address] Pickering/Dr. Banuelos,
Clinical Indicators:
Patient admitted with acute blood loss anemia.
BMI 16.1
09/02 note/assessment: -'Pt meets ASPEN criteria for protein calorie malnutrition of chronic illness with history
of inadequate po intake, moderate loss subcutaneous fat (orbital, tricep), muscle
(clavicle).'
-Patient meets ASPEN/AND criteria for Moderate protein calorie malnutrition
Based on the above information and your assessment, which of the following most accurately represents the patient's nutritional status?
Moderate Protein Calore Malnutrition
Mild Protein Calorie Malnutrition
Cachexia without malnutrition
Underweight without malnutrition
Other (please specify)
[place] Criteria ([facility] Hospitalist 2017)
2 or more criteria must be present for either
non severe or severe malnutrition
Note that the criteria differs related to the
presence of an acute or chronic illness
Acute Illness Chronic Illness
Energy Intake Non Severe: <75% for >7 days Non Severe: <75% for >1 month
Severe: <50% for >5 days Severe: <75% for >1 month
Weight Loss Non Severe: 1-2% over 1 week Non Severe: 5% over 1 month
5% over 1 month 7.5% over 3 months
7.5% over 3 months 10% over 6 months
1 year N/A 20% over 1 year
Severe: >2% over 1 week Severe: >5% over 1 month
>5% over 1 month >7.5% over 3 months
>7.5% over 3 months >10% over 6 months
1 year N/A >20% over 1 year
Body Fat Non Severe: Mild Decrease Non Severe: Mild Loss
Severe: Moderate Decrease Severe: Severe Loss
Muscle Mass Non Severe: Mild Decrease Non Severe: Mild Loss
Severe: Moderate Decrease Severe: Severe Loss
Fluid Accumulation Non Severe: Mild Accumulation Non Severe: Mild Accumulation
Severe: Moderate to severe Severe: Moderate to severe
accumulation accumulation
Reduced Safety Inspector Strength Non Severe: N/A Non Severe: N/A
Severe: Measurably reduced Severe: Measurably reduced
Additional criteria that can be used to Determine if Mild or Moderate Malnutrition (Merck Manual 2018)
Mild Moderate Severe
Albumin gm/dl <3.0 gm/dl <2.5 gm/dl <2.0 gm/dl
Pre Albumin mg/dl <15 gm/dl <10 mg/dl <5.0 mg/dl
BMI <18.5 <17 <16
Use of terms such as suspected, likely, concern for, or probable (associated with a specific diagnosis that is being evaluated, monitored, or treated as if it exists) are acceptable and can be coded in the inpatient setting, when documented at the
time of discharge.
Thank you,
Babs Juarez RN BSN
CDI Specialist
available via tiger text
Please use your independent medical judgment in providing your response.
--- NOTE | 2023-09-06 09:34 | PN.CDI ---
CDI
- -
CDI:
Physician Documentation Request
Admit Date: 09/03/23 01:[address] Pickering/Dr. Banuelos,
Clinical Indicators:
Patient admitted with acute blood loss anemia.
Home medications include: Apixaban 5 mg tablet (Eliquis) 5 mg PO BID
Eliquis held since admission.
09/04 PN, 'Acute Blood Loss Anemia on Anemia of Chronic Disease: Heme positive stool...gastroenterology suspected that the dark stools may be a consequence of iron therapy'
Please clarify if there is a relationship between the acute blood loss anemia and Eliquis use:
Yes, acute blood loss anemia is related to/associated with/exacerbated by Eliquis use.
No, acute blood loss anemia is not related to/associated with/exacerbated by Eliquis use but it is due to ___. (Please specify)
Acute Blood Loss Anemia has been ruled out
Unable to determine
Use of terms such as suspected, likely, concern for, or probable (associated with a specific diagnosis that is being evaluated, monitored, or treated as if it exists) are acceptable and can be coded in the inpatient setting, when documented at the
time of discharge.
Thank you,
Babs Juarez RN BSN
CDI Specialist
available via tiger text
Please use your independent medical judgment in providing your response.
[2023-09-06] MEDS: SANTYL OINTMENT 1 APPLIC TOPICAL ×2 (09:55→20:28)
[2023-09-06] MEDS: ROCEPHIN 2000 MG IV (09:55)
[2023-09-06] MEDS: STERILE WATER FOR INJECTION 20 ML IV (09:55)
[2023-09-06] MEDS: LIPITOR 80 MG PO (09:56)
[2023-09-06] MEDS: PLAQUENIL 200 MG PO ×2 (09:56→20:28)
[2023-09-06] MEDS: ZINC SULFATE 220 MG PO (09:56)
[2023-09-06] MEDS: KEPPRA 500 MG PO ×2 (09:56→20:28)
[2023-09-06] MEDS: FEOSOL 325 MG PO ×2 (09:56→20:28)
[2023-09-06] MEDS: COLACE 100 MG PO ×2 (09:57→20:28)
[2023-09-06] MEDS: THERAGRAN 1 TABLET PO (09:57)
[2023-09-06] MEDS: PROZAC 40 MG PO (09:57)
[2023-09-06] MEDS: ASPIR LOW (ENTERIC COATED) 81 MG PO (09:57)
[2023-09-06] MEDS: NORVASC 5 MG PO (09:57)
[2023-09-06] MEDS: DAKIN'S SOLUTION 0.125% 1/4 STRENGTH 1 ML TOPICAL (09:58)
[2023-09-06] MEDS: KCL 20 MEQ PO (09:58)
[2023-09-06] MEDS: DESENEX/MITRAZOL/ZEASORB 1 APPLIC TOPICAL ×2 (09:58→20:45)
[2023-09-06] MEDS: VITAMIN C 500 MG PO (09:58)
[2023-09-06] MEDS: ROXICODONE 5 MG PO ×2 (10:42→21:46)
--- NOTE | 2023-09-06 13:06 | W.PN.HOSP.TC ---
Addendum entered and electronically signed by Elly Pickering MD 09/06/23 13:54:
I saw and evaluated the patient independently. I reviewed the resident�s note and agree with findings and plan as documented by Dr. Banuelos.
GENERAL: well developed, well nourished, female in no apparent distress
HEENT: NC/AT
HEART: regular rate and rhythm, +S1, +S2
LUNGS : clear to auscultation bilaterally
ABDOM: soft, nontender, nondistended, + bowel sounds
EXT: no cyanosis, clubbing, or edema
NEUROLOGIC: bedbound
Acute Blood Loss Anemia on Anemia of Chronic Disease not exacerbated by Eliquis-- HGB on admission 6.1---s/p pRBC 1 unit--HGB 7.7--patient's baseline appears to be 7-7.5 based on prior labs from other admissions--gastroenterology suspected that the
dark stools may be a consequence of iron therapy. No planned interventions by GI-- Colonoscopy in 6 weeks ideally with new ostomy--Increased iron supplementation to twice daily
UTI-- Possible infection due to urinary catheter -monitoring and treating--1st urine culture contaminated, 2nd pending--cont rocephin and await cultures
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
Atherosclerotic cardiovascular disease without angina pectoris: Stable--Continuing current cardiovascular med regimen regimen including ASA, statin, amlodipine
Stage IV sacral ulcer present on admission: Stable--apprec wound care--Diverting ostomy and indwelling Gabriel to encourage/allow local healing-- s/p debridement on 08/02/2023
Seizure disorder: Stable--No recent seizure activity reported--Continue usual Keppra dosing
Benign hypertension: Stable--Continue usual blood pressure med regimen with holding parameters
Anxiety/depression: Stable--Continue current med regimen
pt meets criteria for moderate protein calorie malnutrition of chronic illness
DVT proph
code status -- DNR
Original Note:
Today's Communication/Plan
-
We continue to treat the patient's UTI with Rocephin. Repeat urine culture sent. IV fluids were discontinued currently awaiting authorization for shelter facility.
Assessment / Plan
Assessment / Plan
Active presentation: Patient is a 67-year-old female with a past medical history significant for functional paraplegia from a prior CVA and recent admission for large sacral ulcer requiring debridement and diverting colostomy.
- Anemia of Chronic Disease:
Heme positive stool
Hgb in ED was 6.1 - patient's baseline appears to be 7-7.5 based on prior labs from other admissions - Currently 7.7 on 09/05
PRBCs 1 pack given in ED
GI evaluation -gastroenterology suspected that the dark stools may be a consequence of iron therapy. No planned interventions by GI. Follow for now. [place] in 6 weeks ideally with new ostomy.
Following hemoglobin and hematocrit improved and stable
Increased iron supplementation to twice daily
Continue to monitor for any symptoms and complaint
Acute Blood Loss Anemia associated with Eliquis Use Ruled Out. Anemia of chronic disease more likely due to ongoing UTI and sacral ulcer. Patient also has poor dietary intake which may also be a contributing factor to anemia.
- UTI: Possible infection due to urinary catheter -monitoring and treating
Urine occult blood was 3+, urine nitrate was positive, urine leukocyte Estrace was 2+, RBCs and WBCs were detected in the urine, and many bacteria were seen.
Rocephin 2000 mg IV given
Repeat UA -second urine analysis conducted on 09/05 continues to show bacteria in the urine. Will continue to treat with Rocephin.
Urine culture was contaminated, culture resent.
- Functional paraplegia as late effects from CVA: Stable
No new neurologic deficit
Doing well at SNF per -authorization pending
- Atherosclerotic cardiovascular disease without angina pectoris: Stable
Continuing current cardiovascular med regimen regimen including ASA, statin, amlodipine
- Stage IV sacral ulcer present on admission: Stable
No obvious recurrent bleeding
Diverting ostomy and indwelling Gabriel to encourage/allow local healing
Wound care will continue to follow the patient
Continue care of the wound s/p debridement on 08/02/2023
- Seizure disorder: Stable
No recent seizure activity reported
Continue usual Keppra dosing
- Benign hypertension: Stable
Continue usual blood pressure med regimen with holding parameters
- Anxiety/depression: Stable
Continue current med regimen
- Chronic Moderate Protein Malnutriton:
Patient's present BMI is 16.1 with a history of low BMI around and below 17 cited on prior hospital admissions.
Patient is noted to have poor intake due to poor appetite.
Patient needs assistance eating often
Will consult dietary
DVT prophylaxis: Patient has a history of PE that occurred on June 2023. Eliquis resumed due to stable H&H.
Anticipated Discharge: 24 - 48 hours
Subjective/Interval History
-
Date of Service: September 06, 2023
Met with patient at bedside. She was seen eating food and being helped by a nurses aide. She was in a happy and pleasant mood while eating and watching the food network. She states that she feels 'better.' Patient was later seen with her
eating food that he brought as well.
Objective Data
-
Labs:
Laboratory Results
09/06/23
06:37
WBC 7.8
Hgb 7.7 L
Hct 24.2 L
Plt Count 470 H
Sodium 138
Potassium 3.9
Chloride 110 H
Carbon Dioxide 22
BUN 7
Creatinine 0.3 L
Glucose 62 L
Calcium 7.8 L
Total Bilirubin 0.2
AST 24
ALT 31
Alkaline Phosphatase 67
Vital Signs:
Vital Signs
Temp Pulse Resp BP Pulse Ox
98.8 F 79 17 112/58 98
09/06/23 07:40 09/06/23 09:57 09/06/23 07:40 09/06/23 09:57 09/06/23 07:40
I&O
09/05/23 09/06/23 09/07/23
06:59 06:59 06:59
Intake Total 240 / 240 3360 / 3360
Output Total 800 / 800 2099 / 2100
Balance -560 / -560 1260 / 1260
Review of Systems
-
History Source: Patient
Constitutional: Reports Other (Diminished Appetite)
EENT: Reports No Symptoms Reported
Respiratory: Reports No Symptoms
Cardiac: Reports No Symptoms
Abdomen/GI: Reports No Symptoms
Breast: Reports No Symptoms
Genitourinary: Reports No Symptoms
Musculoskeletal: Reports Muscle Weakness
Skin: Reports No Symptoms
Neuro: Reports No Symptoms
Endocrine: Reports No Symptoms
Hematologic / Lymphatic: Reports No Symptoms
Allergy / Immunology: Reports No Symptoms
Physical Exam
-
General: No Apparent Distress and Comfortable
HEENT: Normocephalic, Atraumatic and Moist Mucous Membranes
Respiratory: Clear to Auscultation and Non Labored Respirations
Cardiac: Regular Rhythm and S1/S2
Breast: Deferred by me
GI: Normal Bowel Sounds and Ostomy
Rectal: Deferred by Provider
Genito-urinary: Deferred by me
Musculoskeletal: No Clubbing, No Cyanosis and No Edema
Skin: Warm and Dry
Neuro: Nonfocal/Grossly Intact
--- NOTE | 2023-09-06 13:16 | CM ---
Continue to wait for [employer] auth. CM updated patient and physician, facility. CM will call to [employer] again for follow up. CM will continue to follow for discharge planning needs.
Plan;SNF: pending auth and medical clearance
[2023-09-06 14:38] VITALS: BP 71/47; PULSE 80
[2023-09-06 15:21] VITALS: BP 85/46
[2023-09-06] MEDS: ELIQUIS 5 MG PO (20:28)
[2023-09-06] MEDS: DAKIN'S SOLUTION 0.125% 1/4 STRENGTH 5 ML TOPICAL (20:29)
[2023-09-06] MEDS: REMERON 7.5 MG PO (21:46)
[2023-09-06] MEDS: SENOKOT 17.2 MG PO (21:46)
[2023-09-06 23:54] VITALS: BP 122/62
--- NOTE | 2023-09-07 02:59 | DOWNTIME ---
There was a [employer] Client Auto Service Writer Downtime on 09/07/2023 from 0100 to 09/07/2023 at 0255. Downtime documentation of patient's care, including medication administrations, has been reconciled in the electronic record per guidelines. Refer to the
patient's paper chart under the miscellaneous tab to see printed paper medication records and downtime forms.
[2023-09-07 07:47] LABS: Hematocrit 26.2 % (37.0-47.0); Hemoglobin 8.3 g/dL (12.0-16.0); Mean Corp Hgb Conc. 31.7 g/dL (33.0-37.0); Mean Corpuscular Hgb 28.2 pg (27.0-31.0); Mean Corpuscular Volume 89.1 fL (81.0-99.0); Mean Platelet Volume 9.5 fL (7.4-10.4); Platelet Count 495 10^3/uL (130-400); Red Blood Cell Count 2.94 10^6/uL (4.20-5.40); Red Cell Dist. Width 16.6 % (11.5-14.5); White Blood Cell Count 7.4 10^3/uL (4.8-10.8)
[2023-09-07 07:55] VITALS: BP 119/60
[2023-09-07 08:08] LABS: ALT (SGPT) 31 U/L (0-35); AST (SGOT) 28 U/L (14-36); Albumin 2.3 g/dl (3.5-5.0); Alkaline Phosphatase 69 U/L (38-126); Blood Urea Nitrogen 6 mg/dl (7-17); Calcium 8.3 mg/dl (8.4-10.2); Carbon Dioxide 25 mmol/L (22-30); Chloride 109 mmol/L (98-107); Estimated Creatinine Clearance 57 ml/min; Glucose 71 mg/dl (70-99); Potassium 3.9 mmol/L (3.5-5.1); Sodium 139 mmol/L (135-145); Total Bilirubin 0.2 mg/dl (0.2-1.3); eGFR > 60.00
--- NOTE | 2023-09-07 09:07 | W.DCSUMMARY ---
Addendum entered and electronically signed by Elly Pickering MD 09/07/23 13:23:
Read, reviewed, and agree. See same day progress note for additional details. Time spent coordinating care, DC planning, review of DC plan of care with resident, transition of care, review of records in EMR, med rec, consults, notes, d/w
consultants, nursing, family, and CM = 40 mins.
In regards to the documented line noted below as pancreatic lesion was also noted on CT; this was found on a CAT scan done from July (previous admission). Follow-up is recommended with her primary care physician as an outpatient.
Original Note:
Discharge Summary
Discharge Data
Date of Admission: 09/03/23
Date of Discharge: 09/07/23
-
Pending Results: Yes
Additional Pending Results:
Urine culture results
Hospital Course
Patient is a 67-year-old female with a past medical history significant for cerebrovascular accident with resultant functional paraplegia and recent admission for sacral wound including diverting sigmoid colostomy who presented to the emergency
department from a local [place] [facility] facility for evaluation of abnormal patient labs. The patient had been doing [place] [facility] since her prior admission on 07/31 to 08/14. noted that he was with her all day
that day and she was feeling well. At the time of examination in the emergency department the patient denied any complaints. She was unaware of any blood loss and denied chest pain, dyspnea, lightheadedness or any other complaints. Routine labs
done in the emergency department showed hemoglobin was low at 6.1 necessitating 1 unit of PRBCs being administered to the patient. Heme positive stool was also detected in the emergency department. Patient was admitted to [facility] for
acute blood loss anemia on anemia of chronic disease.
Initially, Eliquis was held and H&H was monitored for stability. Iron supplementation was increased to twice daily. GI evaluation suspected that the dark stools detected in the emergency department may have been a consequence of iron therapy.
They recommended that the patient be put on a clear diet but later advance to a low residue diet. The patient was able to tolerate her diet well. A pancreatic lesion was also noted on CT. Wound care continued to follow the patient's sacral ulcer
and treat the lesion. Patient's hemoglobin appears to be at baseline resting between around 8.6 and 8.3. The patient believes that she is at her baseline and wants to go home back to the SNF as she is being taken care of well over there. She
believes that they adequately treating her sacral ulcer wound. Discharge planning was initiated.
The patient has reached maximal benefit from this hospital admission and is appropriate for discharge at the present time. Patient's lab values have stabilized and her hemoglobin is at its baseline. Patient offers no complaints and is ready to go
back to her SNF. 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 Colace and senna was added to her medication regimen. Patient has been recommended to get a follow-up CBC
conducted in 1 week to ensure that her hemoglobin levels are stable. Patient is recommended to follow-up with the results of her urine culture. Patient has been sent home with cephalexin 500 mg PO 4 times daily for her UTI.
Discharge Plan
-
Patient Disposition: Prison/SNF
Discharge Diagnosis/Procedures: Acute Blood Loss Anemia on Anemia of Chronic Disease not exacerbated by Eliquis requiring blood transfusion, UTI, functional paraplegia, atherosclerotic cardiovascular disease, stage IV Sacral ulcer present on
admission, seizure disorder, benign hypertension, anxiety/depression
Diet: Regular
Activity: As tolerated
Driving Restrictions: No driving
Blood Work: CBC in one week
Activity Restrictions/Additional Instructions:
Wound Care Instructions
Sacral wound-clean with Vashe or 1/4 strength Dakin's solution. Miconazole powder to red periwound skin followed by no sting barrier wipe, Santyl ointment to necrotic tissue, alginate, gauze pads, cover with abd pad or silicone foam, change bid and
prn drainage.
LLE wound-clean with saline, silicone border foam, change q 3 days and prn loosened dressing.
Air mattress
Turning schedule
Elevate heels off bed; pillow between legs.
Follow up at wound care center call for an appointment.
Referrals:
Judith Weaver MD [Active] - (3-4 week follow up with HAYDEE and Dr. Weaver to review for pancreatic cyst, EGD and colonoscopy with anemia. )
Bina Jordan MD [Family Provider] - in one week
Prescriptions:
New
docusate sodium 100 mg Capsule
100 mg PO BID Qty: 1 0RF
sennosides [Senna Laxative] 8.6 mg Tablet
17.2 mg PO HS Qty: 1 0RF
cephalexin 500 mg Capsule
500 mg PO QID Qty: 30 0RF
Continued
multivitamin Tablet
1 tab PO DAILY
fluoxetine 40 mg Capsule
40 mg PO DAILY
atorvastatin 80 mg Tablet
80 mg PO DAILY
amlodipine 5 mg Tablet
5 mg PO DAILY
hydroxychloroquine 200 mg Tablet
200 mg PO BID
levetiracetam [Keppra] 100 mg/mL Solution
500 mg PO BID
mirtazapine 7.5 mg Tablet
7.5 mg PO HS
Eliquis 5 mg Tablet
5 mg PO BID
aspirin 81 mg Capsule
81 mg PO DAILY
Santyl 250 unit/gram Ointment
1 applic topical DAILY Qty: 30 0RF
oxycodone 5 mg tablet
2.5 mg PO Q4H PRN (Reason: mild pain) Qty: 7 0RF
potassium chloride 20 mEq tablet,ER particles/crystals
20 meq PO DAILY Qty: 30 0RF
ascorbic acid (vitamin C) 500 mg Tablet
500 mg PO DAILY
ferrous sulfate 325 mg (65 mg iron) Tablet
325 mg PO QPM
zinc sulfate 220 mg Capsule
220 mg PO DAILY
oxycodone 5 mg Tablet
5 mg PO HS
oxycodone 5 mg tablet
5 mg PO Q6HPRN PRN (Reason: Severe pain)
Discharge Orders:
Discharge Patient (As Directed); Ordered 09/07/23
Ordered By: Jone Banuelos
Discharge Date and Time
Print Language: KYRGYZ
--- NOTE | 2023-09-07 09:19 | W.PN.HOSP.TC ---
Addendum entered and electronically signed by Elly Pickering MD 09/07/23 13:16:
I saw and evaluated the patient independently. I reviewed the resident�s note and agree with findings and plan as documented by Dr. Banuelos.
GENERAL: well developed, well nourished, female in no apparent distress
HEENT: NC/AT
HEART: regular rate and rhythm, +S1, +S2
LUNGS : clear to auscultation bilaterally
ABDOM: soft, nontender, nondistended, + bowel sounds, ostomy
EXT: no cyanosis, clubbing, or edema
NEUROLOGIC: bedbound
: parker
Acute Blood Loss Anemia on Anemia of Chronic Disease not exacerbated by Eliquis-- HGB on admission 6.1---s/p pRBC 1 unit---patient's baseline appears to be 7-7.5 based on prior labs from other admissions--gastroenterology suspected that the dark
stools may be a consequence of iron therapy. No planned interventions by GI-- Colonoscopy in 6 weeks ideally with new ostomy--Increased iron supplementation to twice daily
UTI-- Possible infection due to urinary catheter -monitoring and treating--1st urine culture contaminated, 2nd pending--change rocephin to Keflex at d/c and await cultures
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
Atherosclerotic cardiovascular disease without angina pectoris: Stable--Continuing current cardiovascular med regimen regimen including ASA, statin, amlodipine
Stage IV sacral ulcer present on admission: Stable--apprec wound care--Diverting ostomy and indwelling Parker to encourage/allow local healing-- s/p debridement on 08/02/2023
Seizure disorder: Stable--No recent seizure activity reported--Continue usual Keppra dosing
Benign hypertension: Stable--Continue usual blood pressure med regimen with holding parameters
Anxiety/depression: Stable--Continue current med regimen
pt meets criteria for moderate protein calorie malnutrition of chronic illness
DVT proph
code status -- DNR
OK for d/c
Original Note:
Today's Communication/Plan
-
Patient has reached maximal benefit from this hospital admission and is appropriate for discharge. We will move forward with discharge planning. The patient has been switched to cephalexin 500 mg p.o. 4 times daily for ongoing UTI. Patient has
been advised to follow-up with urine culture results in the outpatient setting. Patient has been advised to continue with wound care for her sacral decubitus ulcer.
Assessment / Plan
Assessment / Plan
Active presentation: Patient is a 67-year-old female with a past medical history significant for functional paraplegia from a prior CVA and recent admission for large sacral ulcer requiring debridement and diverting colostomy.
- Acute Blood Loss Anemia on Anemia of Chronic Disease not exacerbated by Eliquis:
Heme positive stool
Hgb in ED was 6.1 - patient's baseline appears to be 7-7.5 based on prior labs from other admissions - Currently 8.3 on 09/06
PRBCs 1 pack given in ED
GI evaluation -gastroenterology suspected that the dark stools may be a consequence of iron therapy. No planned interventions by GI. Follow for now. Means in 6 weeks ideally with new ostomy.
Following hemoglobin and hematocrit improved and stable
Increased iron supplementation to twice daily
Continue to monitor for any symptoms and complaint
Acute Blood Loss Anemia associated with Eliquis Use Ruled Out. Anemia of chronic disease more likely due to ongoing UTI and sacral ulcer. Patient also has poor dietary intake which may also be a contributing factor to anemia.
- UTI: Possible infection due to urinary catheter -monitoring and treating
Urine occult blood was 3+, urine nitrate was positive, urine leukocyte Estrace was 2+, RBCs and WBCs were detected in the urine, and many bacteria were seen.
Rocephin 2000 mg IV given
Repeat UA -second urine analysis conducted on 09/05 continues to show bacteria in the urine. Patient switched to cephalexin 500 mg p.o. 4 times daily for transition to upcoming discharge.
Urine culture was contaminated, culture resent. Patient advised to follow-up with urine cultures outpatient.
- Functional paraplegia as late effects from CVA: Stable
No new neurologic deficit
Doing well at SNF per
- Atherosclerotic cardiovascular disease without angina pectoris: Stable
Continuing current cardiovascular med regimen regimen including ASA, statin, amlodipine
- Stage IV sacral ulcer present on admission: Stable
No obvious recurrent bleeding
Diverting ostomy and indwelling Parker to encourage/allow local healing
Wound care will continue to follow the patient
Continue care of the wound s/p debridement on 08/02/2023
- Seizure disorder: Stable
No recent seizure activity reported
Continue usual Keppra dosing
- Benign hypertension: Stable
Continue usual blood pressure med regimen with holding parameters
- Anxiety/depression: Stable
Continue current med regimen
- Chronic Moderate Protein Malnutriton:
Patient's present BMI is 16.1 with a history of low BMI around and below 17 cited on prior hospital admissions.
Patient is noted to have poor intake due to poor appetite.
Patient needs assistance eating often
Will consult dietary
DVT prophylaxis: Patient has a history of PE that occurred on June 2023. Eliquis resumed due to stable H&H.
Anticipated Discharge: Today
Subjective/Interval History
-
Date of Service: September 07, 2023
Met with patient at the bedside. She is in a calm and pleasant mood during discussion. She does not share much but spoke about her bryn for cooking and believes that gas stoves are better for cooking than electric stoves.
Objective Data
-
Labs:
Laboratory Results
09/07/23
07:13
WBC 7.4
Hgb 8.3 L
Hct 26.2 L
Plt Count 495 H
Sodium 139
Potassium 3.9
Chloride 109 H
Carbon Dioxide 25
BUN 6 L
Creatinine 0.4 L
Glucose 71
Calcium 8.3 L
Total Bilirubin 0.2
AST 28
ALT 31
Alkaline Phosphatase 69
Vital Signs:
Vital Signs
Temp Pulse Resp BP Pulse Ox
98.4 F 72 16 119/60 99
09/07/23 07:55 09/07/23 07:55 09/07/23 07:55 09/07/23 07:55 09/07/23 07:55
I&O
09/06/23 09/07/23 09/08/23
06:59 06:59 06:59
Intake Total 3360 / 3360 360 / 360
Output Total 2100 / 2100 1825 / 1825
Balance 1260 / 1260 -1465 / -1465
Review of Systems
-
History Source: Patient
Constitutional: Reports No Symptoms
EENT: Reports No Symptoms Reported
Respiratory: Reports No Symptoms
Cardiac: Reports No Symptoms
Abdomen/GI: Reports No Symptoms
Breast: Reports No Symptoms
Genitourinary: Reports No Symptoms
Musculoskeletal: Reports Muscle Weakness
Neuro: Reports No Symptoms
Endocrine: Reports No Symptoms
Hematologic / Lymphatic: Reports No Symptoms
Allergy / Immunology: Reports No Symptoms
Physical Exam
-
General: Well Developed, Well Nourished and No Apparent Distress
HEENT: Normocephalic, Atraumatic and Moist Mucous Membranes
Respiratory: Clear to Auscultation
Cardiac: Regular Rhythm and S1/S2
Breast: Deferred by me
GI: Soft, Nontender, Normal Bowel Sounds and Ostomy
Rectal: Deferred by Provider
Genito-urinary: Deferred by me
Musculoskeletal: No Clubbing, No Cyanosis and No Edema
Skin: Warm and Dry
Neuro: Nonfocal/Grossly Intact
Psych: Calm
[2023-09-07] MEDS: LIPITOR 80 MG PO (09:44)
[2023-09-07] MEDS: PLAQUENIL 200 MG PO (09:44)
[2023-09-07] MEDS: VITAMIN C 500 MG PO (09:44)
[2023-09-07] MEDS: PROZAC 40 MG PO (09:44)
[2023-09-07] MEDS: ZINC SULFATE 220 MG PO (09:44)
[2023-09-07] MEDS: FEOSOL 325 MG PO (09:45)
[2023-09-07] MEDS: STERILE WATER FOR INJECTION IV (09:45)
[2023-09-07] MEDS: COLACE 100 MG PO (09:45)
[2023-09-07] MEDS: THERAGRAN 1 TABLET PO (09:45)
[2023-09-07] MEDS: ELIQUIS 5 MG PO (09:45)
[2023-09-07] MEDS: NORVASC 5 MG PO (09:45)
[2023-09-07] MEDS: ASPIR LOW (ENTERIC COATED) 81 MG PO (09:45)
[2023-09-07] MEDS: KEPPRA 500 MG PO (09:45)
[2023-09-07] MEDS: KCL 20 MEQ PO (09:46)
[2023-09-07] MEDS: SANTYL OINTMENT 1 APPLIC TOPICAL (10:54)
[2023-09-07] MEDS: DAKIN'S SOLUTION 0.125% 1/4 STRENGTH 10 ML TOPICAL (10:56)
[2023-09-07] MEDS: DESENEX/MITRAZOL/ZEASORB 1 APPLIC TOPICAL (10:56)
[2023-09-07 11:57] VITALS: BP 127/67
--- NOTE | 2023-09-07 12:10 | CM ---
Addendum entered by Cheli Harper 09/07/23 12:14:
medical forms for ambulance on chart and aware. Patient completed IMM and signed form on chart. Authorization was documented in [employer].
Original Note:
Patient discharged today to [facility]. Anu updated with auth. Please call report to [phone] [phone]. Authorization is [id number] 09/04-09/10. CM will continue to follow for discharge planning needs.
PLan; transfer to [facility] via ambulance today
[2023-09-07] MEDS: KEFLEX 500 MG PO (13:12)
== END 2023-09-07 15:07 | DRG 811 ==
LOC: 4 EAST ACU 01:33
PROVIDERS: Emergency Medicine; Nurse Practitioner Family; ADMITTING PHYSICIAN Hospitalist; ATTENDING PHYSICIAN Internal Medicine; CONSULT PHYSICIAN Internal Medicine; EMERGENCY PHYSICIAN Emergency Medicine; FAMILY PHYSICIAN Internal Medicine
PROC: 30233N1 Transfusion of Nonautologous Red Blood Cells into Peripheral Vein, Percutaneous Approach (ICD-10-PCS; 2023-09-02)
DX: D62 Acute posthemorrhagic anemia (principal); L89.154 Pressure ulcer of sacral region, stage 4; T83.511A Infection and inflammatory reaction due to indwelling urethral catheter, initial encounter; G82.20 Paraplegia, unspecified; E44.0 Moderate protein-calorie malnutrition; Z68.1 Body mass index [BMI] 19.9 or less, adult; Z75.1 Person awaiting admission to adequate facility elsewhere; Y73.8 Miscellaneous gastroenterology and urology devices associated with adverse incidents, not elsewhere classified
CPT/HCPCS: 36430; 80048; 80053; 81003; 81015; 82962; 83540; 83550; 85025; 85027; 85610; 85730; 86850; 86900; 86901; 86920; 87070; 87086; 96374; 97162; 97166; 99285; P9016

== ENCOUNTER 2023-10-11 04:15 | Emergency (ER) | payer OTHER, MEDICARE, SELFPAY ==
[2023-10-11 04:22] VITALS: BP 146/80
--- NOTE | 2023-10-11 04:46 | ED.GENMED ---
History of Present Illness
General
Chief Complaint: Catheter/Tube Problem
Source: patient, spouse and previous hospital records
Exam Limitations: none
Time Seen by Provider: 10/11/23 04:30
Nursing documentation reviewed up to this point in time: agreed with
History of Present Illness
History of Present Illness:
This is a 67-year-old woman who has extensive past medical history significant for CVA with resultant functional paraplegia, chronic sacral decubitus requiring diverting sigmoid colostomy July of this year. Most recently hospitalized in August for GI
bleed necessitating 1 unit of packed cells during that hospitalization. No episodes of recurrent GI bleed.
She had been residing in a retirement facility but has since transition to home 1 and half weeks ago.
She has been receiving home health care with [facility] nurses, home physical therapy and follows with [facility] graphics specialist for her chronic sacral wound.
She has history of chronic urinary retention, chronic indwelling Gabriel catheter and presents this morning with her due to blocked Gabriel catheter, decreased output from catheter tonight and through the morning with some lower abdominal
discomfort, fullness and leaking about the catheter. She has not had a fever nor chills. Colostomy has been functioning normally. She has had no episodes of black nor tarry stools, no bright red blood per colostomy, denies bloody urine but urine
has had a fair amount of sediment chronically.
and patient unsure as to when Gabriel catheter was last changed perhaps 3 to 4 weeks ago.
Past History
Past History
ED Past Medical History: CVA, HTN, Hypercholesterolemia, Seizures, Other (Stage IV sacral decub, hypokalemia, diverting colostomy August 08, 2023) and Other (Urinary retention, UTI/pyelonephritis with urosepsis, indwelling Gabriel catheter; PE)
ED Past Surgical History: Other (Diverting colostomy August 08, 2023 due to fecal incontinence and sacral decubitus.)
Social History
Tobacco: Non-smoker
Alcohol: None
Personal:
Living: with family (Has transition from detention to home September 30, 2023.)
Family History
Family History: Other (Noncontributory)
Phy Exam
Physical Exam
Physical Exam:
GENERAL: 67-year-old somewhat thin, frail appearing woman who is bright and alert, pleasant, easily communicative and overall appears in no acute distress. is accompanying.
EYE: pupils equal and reactive. anicteric
NECK: Supple, nontender, no meningismus, no significant adenopathy.
ENT: oral mucosa is moist. No rhinorrhea.
CARDIAC: Regular rate and rhythm. no murmur.
LUNGS: Clear breath sounds bilaterally, no acute respiratory distress, no wheezes/rales/rhonchi
ABDOMEN: Soft, nondistended, mild tenderness suprapubic region with palpably mildly to moderately distended bladder, Gabriel catheter in place with scant sediment within the tube. No r/g, no cvat. normoactive BS. There is a large stage IV sacral
decubitus.
NEUROLOGICAL: Alert and oriented x3
SKIN: Warm and dry, normal color, skin intact. No rash.
MUSCULOSKELETAL: No C/C/E. peripheral pulses are full and equal b/l. No palpable tenderness.
PSYCH: Normal and appropriate interaction.
Course
Orders/Labs/Results
Orders:
Orders
10/11/23 04:46
Urinalysis Reflex To Culture Urgent
Date Specimen was Collected: 10/11/23
Time Specimen was Collected: 04:46
Vital Signs
Initial and Last Documented VS:
Initial Vital Signs
Temp Pulse Resp BP Pulse Ox
98.6 F 86 22 146/80 100
10/11/23 04:22 10/11/23 04:22 10/11/23 04:22 10/11/23 04:22 10/11/23 04:22
Last Documented Vital Signs
Temp Pulse Resp BP Pulse Ox
98.6 F 86 22 146/80 100
10/11/23 04:22 10/11/23 04:22 10/11/23 04:22 10/11/23 04:22 10/11/23 04:22
MDM/Problems Addressed
Differential Diagnosis Includes:
Patient presents with chronic indwelling Gabriel catheter with blocked Gabriel catheter with palpably distended bladder and minimal output in the catheter.
Will plan for Gabriel catheter change.
She is afebrile, has not reported a fever, no back pain or flank pain.
Overall nontoxic in appearance.
Chronic conditions affecting care: Neurological disorder and Other (Chronic indwelling Gabriel catheter.)
*Pulse Oximetry
Patient hypoxic: no
*Critical Care Note
Total Time (30-74mins, 75-104mins- exclusive of procedures): Not Applicable
Update Note
Update Note:
10/11/2023 0506 AM
Gabriel catheter changed by nursing staff without difficulty. Initial drainage of 600 mL of urine with complete relief of lower abdominal discomfort.
Will give a one-time dose of Augmentin due to Gabriel catheter change.
Previous urine cultures have all been polymicrobial. Patient has not had a fever, no flank pain, nothing to suggest acute UTI/pyelonephritis.
Will discharge to home with , to continue home health care services, wound care services.
ED Attending Note
-
Portions of this chart may have been created with voice recognition software.� Occasional wrong word or��sound alike� substitutions may have occurred due to the inherent limitations of voice recognition software.
Discharge Plan
Departure
Patient Disposition: Home (Routine Discharge)
Date of Disposition: 10/11/23
Time of Disposition: 05:07
Patient with high blood pressure during this ER visit?: No
Discharge Problem:
Complication, blocked Gabriel catheter
Instructions: How to Care for Your Gabriel Catheter
Prescriptions:
No Action
multivitamin Tablet
1 tab PO DAILY
fluoxetine 40 mg Capsule
40 mg PO DAILY
atorvastatin 80 mg Tablet
80 mg PO DAILY
amlodipine 5 mg Tablet
5 mg PO DAILY
hydroxychloroquine 200 mg Tablet
200 mg PO BID
levetiracetam [Keppra] 100 mg/mL Solution
500 mg PO BID
mirtazapine 7.5 mg Tablet
7.5 mg PO HS
Eliquis 5 mg Tablet
5 mg PO BID
aspirin 81 mg Capsule
81 mg PO DAILY
Santyl 250 unit/gram Ointment
1 applic topical DAILY Qty: 30 0RF
oxycodone 5 mg tablet
2.5 mg PO Q4H PRN (Reason: mild pain) Qty: 7 0RF
potassium chloride 20 mEq tablet,ER particles/crystals
20 meq PO DAILY Qty: 30 0RF
ascorbic acid (vitamin C) 500 mg Tablet
500 mg PO DAILY
ferrous sulfate 325 mg (65 mg iron) Tablet
325 mg PO QPM
zinc sulfate 220 mg Capsule
220 mg PO DAILY
oxycodone 5 mg Tablet
5 mg PO HS
oxycodone 5 mg tablet
5 mg PO Q6HPRN PRN (Reason: Severe pain)
docusate sodium 100 mg Capsule
100 mg PO BID Qty: 1 0RF
sennosides [Senna Laxative] 8.6 mg Tablet
17.2 mg PO HS Qty: 1 0RF
cephalexin 500 mg Capsule
500 mg PO QID Qty: 30 0RF
Referrals:
Jeyson Cardoza MD [Active] - As needed
Interventions
Interventions:
*Risk Screen - Suicide Last Done: 10/11/23 04:22
*General Assessment Last Done: 10/11/23 04:43
*Neglect/Abuse Screening Last Done: 10/11/23 04:22
*ED COVID-19 Vaccine History Last Done: 10/11/23 04:43
Discharge Date and Time
Print Language: GIBRALTARIAN
[2023-10-11 05:00] LABS: Urine Albumin Trace (Neg - Trace); Urine Bilirubin Negative (Negative); Urine Character Slightly Cloudy (Clear); Urine Color Yellow; Urine Glucose Negative (Negative); Urine Ketone Negative (Negative); Urine Leukocyte 2+ (Negative); Urine Nitrite Negative (Negative); Urine Occult Blood 4+ (Negative); Urine Specific Gravity 1.015 (<1.030); Urine Urobilinogen Negative (Neg - 1+)
[2023-10-11] MEDS: AUGMENTIN 875 MG/125 MG 1 TABLET PO (05:09)
[2023-10-11 05:16] VITALS: BP 142/78
[2023-10-11 05:30] LABS: Urine Squamous Cell 0-2 /LPF (Few)
[2023-10-11 05:31] LABS: Urine Bacteria Few (Negative); Urine Red Blood Cell 30-40 /HPF (0-2); Urine White Cell 30-40 /HPF (0-5)
== END 2023-10-11 05:21 | disposition home or self-care (01) ==
LOC: EMR 04:15
PROVIDERS: EMERGENCY PHYSICIAN Emergency Medicine; FAMILY PHYSICIAN Physician Assistant
DX: T83.091A Other mechanical complication of indwelling urethral catheter, initial encounter (principal); Y84.6 Urinary catheterization as the cause of abnormal reaction of the patient, or of later complication, without mention of misadventure at the time of the procedure; Y73.1 Therapeutic (nonsurgical) and rehabilitative gastroenterology and urology devices associated with adverse incidents; Z86.73 Personal history of transient ischemic attack (TIA), and cerebral infarction without residual deficits
CPT/HCPCS: 99283; 51702; 81003; 81015; 87086

== ENCOUNTER → 2023-11-27 11:58 | Outpatient (REF) | payer OTHER, MEDICARE, SELFPAY | LOC: MRI 3T 11:58 | PROVIDERS: ATTENDING PHYSICIAN Physician Assistant | DX: K86.9 Disease of pancreas, unspecified (principal) | CPT/HCPCS: 74183; A9575 ==

== ENCOUNTER 2023-12-29 10:18 | Inpatient (IN) | payer OTHER, SELFPAY ==
[2023-12-27] VITALS (15 sets, daily range): BP systolic 5–163; BP diastolic 45–86; BMI 19.8
[2023-12-27] MEDS: TYLENOL 1000 MG PO (07:04)
--- NOTE | 2023-12-27 08:57 | W.IMMPOSTOP ---
Surgical Immed Post Op Note
-
Primary Surgeon: Brian Kelly MD
Assisting Surgeon: None
Pre-op Diagnosis: Nonhealing sacral decubitus ulcer
Post-op Diagnosis: Same
Procedure Performed:
1. Excision debridement of sacral decubitus ulcer
2. Local rotational (rhomboid/Limberg) flap
Anesthesia Type: General
Specimen / Cultures: Sacral decubitus ulcer
Estimated Blood Loss: 11 cc
Complications: None
Operative Findings: Nonhealing sacral decubitus ulcer at the superior aspect of the gluteal cleft. Excised back to healthy tissue. Final dimensions roughly 4 point centimeters long by 4.5 cm wide. A rhomboid/Limberg rotational flap was fashioned
and rotated into the defect and secured at the skin in 2 layers with interrupted Vicryl subdermal and horizontal mattress nylon sutures. A 7 Moldovan flat Chadwick drain placed in the subcutaneous space.
POST OP PLAN:
Imaging: None
Labs: Routine AM
Diet: Advance to Regular as tolerated
Analgesia: Tylenol 650mg q6 Rebeka, Nancy 5mg q6 PRN, Dilaudid 0.5mg q2h PRN
Neuro/vascular checks: q4h
AC/AP: Hold Therapeutic AC, Ok for DVT PPx
Activity: Ad Arianne
Wound/Incisions/Drains: Routine, NICOLE drain to bulb suction
Abx: Will give prophylactic clindamycin x 4 days
Dispo: RNF
[2023-12-27] MEDS: CLEOCIN 52 MG IV ×3 (11:54→23:22)
[2023-12-27] MEDS: TYLENOL 650 MG PO ×4 (12:26→23:22)
[2023-12-27] MEDS: DILAUDID 0.25 MG IV ×3 (13:16→23:21)
--- NOTE | 2023-12-27 14:37 | OR.RPT ---
Operative Report
Operative Report
Patient Name: Ashley Bundy
: 1955
Date of Operation: 12/27/2023
Preoperative Diagnosis: Nonhealing sacral decubitus ulcer
Postoperative Diagnosis: Same
Procedure(s):
1. Excisional debridement of sacral decubitus ulcer
2. Local rotational (rhomboid/Limberg) flap
Surgeon(s):
Dr. Kelly
Arcade Technician(s):
None
Anesthesia: General
Estimated Blood Loss: 11 cc
Urine Output: None
Drains/Lines/Implants: None
Specimens:
Sacral decubitus ulcer
Indication for surgery:
This is a 67-year-old female with a history of stroke and quadriplegia who developed a sacral decubitus ulcer that was debrided. She also underwent a diverting colostomy. We have been managing her sacral decubitus ulcer for several months with
local wound care however it was failing to progress and so the decision was made to perform an excision of her residual wound with local flap coverage. FAfter thorough discussion of the risk benefits and alternatives the patient was consented for
an open debridement.
Operative Findings: Nonhealing sacral decubitus ulcer at the superior aspect of the gluteal cleft. Excised back to healthy tissue. Final dimensions roughly 4cm long by 4.5 cm wide. A rhomboid/Limberg rotational flap was fashioned and rotated into
the defect and secured at the skin in 2 layers with interrupted Vicryl subdermal and horizontal mattress nylon sutures. A 7 Icelandic flat Chadwick drain placed in the subcutaneous space.
Details of the operation:
The patient was brought to the operating room and general anesthesia was induced and an endotracheal tube was successfully positioned before rotating the patient prone. All pressure points were padded. The area of the upper buttocks was prepped
and draped in the usual fashion. I team timeout was performed confirming the patient, procedure and that appropriate preoperative antibiotics and DVT prophylaxis have been given. There was no residual infection over the sacral wound however there
was nonhealing granulation tissue as well as heaped up thickened skin tissue at the periphery. This was all excised till he got back to healthy bleeding tissue. The final dimensions of the wound was 4 cm long by 4.5 cm wide. Hemostasis was
achieved. We then fashioned a rhomboid/Limberg flap from the right buttocks that was roughly 4.5 cm wide and freed up off of the gluteal fascia underneath. Through a stab incision in the right buttocks a 7 Icelandic flat drain was introduced and cut
to size. This was secured at the skin with a 2-0 nylon suture. The flap was then rotated into the defect and secured in 2 layers using 3-0 Vicryl deep dermals followed by 2-0 nylon horizontal mattress sutures. After washing off the residual
Betadine. The incision was covered with Xeroform gauze followed by fluffs, ABDs and mesh underwear. All counts were correct at the end of procedure. The patient was then transferred to PACU for recovery.
I was the attending physician and performed the procedure with no assistance. I was present for all portions of the case
Brian Kelly MD
--- NOTE | 2023-12-27 14:40 | WOUNDNOTE ---
ARTEMIO RN NOTE: Patient had excisional debridement of chronic stage 4 sacral ulcer with rotational flap done today by Dr. Kelly. Patient known to service, last seen 09/05/23 for stage 4 sacral ulcer. Patient also has a Colostomy since July 2023, called
[facility] for supplies, nursing can change q 3-4 days and as needed. Will follow up tomorrow for sacral ulcer, nurse Bud in agreement.
[2023-12-27] MEDS: KEPPRA 500 MG PO (20:23)
[2023-12-27] MEDS: ROXICODONE 5 MG PO (20:25)
[2023-12-28] MEDS: TYLENOL PO ×3 (03:09→11:29)
[2023-12-28] MEDS: DILAUDID 0.25 MG IV (03:54)
[2023-12-28 04:30] VITALS: BP 152/78
[2023-12-28] MEDS: CLEOCIN 52 MG IV ×2 (05:28→11:23)
[2023-12-28 07:12] LABS: % Basophils 0.5 % (0-2); % Eosinophils 0.5 % (0-6); % Immature Granulocytes 0.4 % (0-0.5); % Lymphocytes 19.6 % (20.5-51.1); % Monocytes 9.9 % (1.7-9.3); % Neutrophils 69.1 % (42.2-75.2); Absolute Basophils 0.1 10^3/uL (0-0.2); Absolute Eosinophils 0.1 10^3/uL (0-0.7); Absolute Lymphocytes 2.1 10^3/uL (1.2-3.4); Absolute Monocytes 1.1 10^3/uL (0.1-0.6); Absolute Neutrophils 7.4 10^3/uL (1.4-6.5); Hematocrit 29.6 % (37.0-47.0); Hemoglobin 9.6 g/dL (12.0-16.0); Mean Corp Hgb Conc. 32.4 g/dL (33.0-37.0); Mean Corpuscular Hgb 24.7 pg (27.0-31.0); Mean Corpuscular Volume 76.1 fL (81.0-99.0); Mean Platelet Volume 9.4 fL (7.4-10.4); Nucleated Red Blood Cells % 0 %; Platelet Count 410 10^3/uL (130-400); Red Blood Cell Count 3.89 10^6/uL (4.20-5.40); White Blood Cell Count 10.7 10^3/uL (4.8-10.8)
[2023-12-28 07:30] LABS: Blood Urea Nitrogen 21 mg/dl (7-17); Calcium 9.2 mg/dl (8.4-10.2); Carbon Dioxide 25 mmol/L (22-30); Chloride 106 mmol/L (98-107); Estimated Creatinine Clearance 70 ml/min; Glucose 78 mg/dl (70-99); Potassium 3.9 mmol/L (3.5-5.1); Sodium 142 mmol/L (135-145); eGFR > 60.00
[2023-12-28 07:45] VITALS: BP 103/45
--- NOTE | 2023-12-28 08:24 | W.PN.GS2 ---
Today's Communication / Plan
-
Return to the OR
Assessment / Plan
-
67-year-old female with a nonhealing sacral decubitus ulcer POD #1 excisional debridement and local advancement flap. With some concern for flap necrosis.
Will plan for takeback and flap revision in the OR today.
N.p.o., IV fluids, continue antibiotics
Risks/Benefits/Alternatives, expected postoperative course and possible complications (bleeding, infection, injury to surrounding structures, acute/chronic pain) discussed at length. Patient wishes to proceed with surgery. All questions answered.
Consent obtained.
I spent 30 minutes in total for the care of this patient today including direct patient care and counseling, reviewing labs, imaging, coordination of care, as well as documentation.
Time Spent
Total Time Spent with Patient (in minutes): 20
Subjective Data
-
Date of Service: December 28, 2023
Interval Events:
No acute events overnight. A little confused. Pain controlled.
Objective Data
-
Intake and Output
12/27/23 12/28/23 12/29/23
06:59 06:59 06:59
Intake Total 1130 / 1130
Output Total 970 / 970
Balance 160 / 160
Intake:
Oral fluids 920 / 920
IV fluids (Total) 100 / 100
IVPB 50 / 50
NSS 50 / 50
IV piggybacks 110 / 110
Output:
Drain Output (Total) 20 /
Right Sacrum Rodolfo-Johnson 20
Urine, Gabriel 950 / 950
Vital Signs
Temp Pulse Resp BP Pulse Ox
98.5 F 75 18 152/78 95
12/27/23 23:13 12/27/23 23:13 12/27/23 23:13 12/28/23 04:30 12/27/23 23:13
Lab Results
12/28/23 05:32
12/28/23 05:31
Calcium 9.2 mg/dl (8.4-10.2) 12/28/23 05:31
Physical Exam
-
GENERAL/NEURO: Awake, Alert, no distress
CHEST: Unlabored breathing on RA
Buttocks: [place] of the rhomboid flap appears fairly dusky concerning for skin necrosis
[2023-12-28] MEDS: KEPPRA 500 MG PO ×2 (08:33→20:04)
[2023-12-28] MEDS: NORVASC 5 MG PO (08:33)
[2023-12-28] MEDS: PROZAC 40 MG PO (08:33)
[2023-12-28] MEDS: TYLENOL 650 MG PO ×4 (08:33→23:52)
[2023-12-28] MEDS: PLAQUENIL 200 MG PO ×2 (08:34→20:04)
[2023-12-28] MEDS: ROXICODONE 5 MG PO ×2 (08:42→20:14)
--- NOTE | 2023-12-28 08:44 | WOUNDNOTE ---
ARTEMIO RN NOTE: Confirmed with Dr. Kelly no need to see patient for sacral wound today, plan is for OR again later today. Asked Dr. Kelly to notify wound care if needed post surgery.
[2023-12-28] MEDS: NORMOSOL-R/PLASMALYTE-A 1000 IV (10:17)
--- NOTE | 2023-12-28 10:31 | CM ---
Reviewed the chart notes and spoke with the patient and spouse at the bedside. Patient had a CVA with resultant functional paraplegia. Patient anticipates going back to the OR later today. Patient's spouse cares for the patient at home. The
patient resides with her spouse in a three story home with one step to enter. The patient resides on first level with a hospital bed, bsc, and a tilt wheelchair. The patient is currently with [facility] and has been to [facility]. The
patient confirmed her pharmacy of choice is the [facility]. CM continues to be available to patient/family and is monitoring medical plan for needs at discharge.
Plan: Discharge to home with resumption of [facility] services.
--- NOTE | 2023-12-28 14:35 | W.PN.UPDATE ---
Update Note
Progress Note Update
Patient reassessed this afternoon with Dr. Peoples. Agree that necrosis at the tip of the flap was likely due to tension secondary to patient spasticity not appreciated in the OR when the patient was relaxed and in the prone position. As the
underlying tissue appears healthy, her drain was removed and the apex stitches were cut out. Will allow this to demarcate and drain. Will plan to pack and potentially down the road VAC this wound.
No OR. Case canceled.
Will resume diet, stop IV fluids.
Will switch to p.o. clindamycin x 3 days
Anticipate discharge tomorrow.
Patient and agreeable to plan of care above.
[2023-12-28] MEDS: LIORESAL 2.5 MG PO ×2 (15:02→23:51)
[2023-12-28 15:08] VITALS: BP 127/71
[2023-12-28] MEDS: CLEOCIN 300 MG PO ×2 (17:16→23:52)
[2023-12-28] MEDS: LOVENOX 30 MG SC (17:16)
[2023-12-28 23:30] VITALS: BP 137/64
[2023-12-29] MEDS: ROXICODONE 5 MG PO ×2 (02:21→11:04)
[2023-12-29] MEDS: TYLENOL PO (05:06)
[2023-12-29] MEDS: NORMOSOL-R/PLASMALYTE-A IV (05:56)
[2023-12-29] MEDS: CLEOCIN 300 MG PO ×2 (05:58→11:01)
[2023-12-29 07:09] VITALS: BP 138/60
[2023-12-29] MEDS: KEPPRA 500 MG PO (08:53)
[2023-12-29] MEDS: LIORESAL 2.5 MG PO (08:53)
[2023-12-29] MEDS: PROZAC 40 MG PO (08:53)
[2023-12-29] MEDS: NORVASC 5 MG PO (08:53)
[2023-12-29] MEDS: TYLENOL 650 MG PO ×2 (08:53→11:01)
[2023-12-29] MEDS: PLAQUENIL 200 MG PO (08:53)
--- NOTE | 2023-12-29 10:01 | W.PN.GS2 ---
Today's Communication / Plan
-
Dispo planning
Assessment / Plan
-
67-year-old female with a nonhealing sacral decubitus ulcer POD #1 excisional debridement and local advancement flap. With some concern for flap necrosis.
Will DC home today with plans for local wound care at home. Wound care instructions reviewed with .
Time Spent
Total Time Spent with Patient (in minutes): 20
Subjective Data
-
Date of Service: December 29, 2023
Interval Events:
No acute events overnight. Slept well. Pain Controlled. Denies Nausea/Vomiting.
Objective Data
-
Intake and Output
12/28/23 12/29/23 12/30/23
06:59 06:59 06:59
Intake Total 1130 / 1130 372 / 372
Output Total 970 / 970 950 / 950 300 / 300
Balance 160 / 160 -578 / -578 -300 / -300
Intake:
Oral fluids 920 / 920 120 / 120
IV fluids (Total) 100 / 100 200 / 200
IVPB 50 / 50
NSS 50 / 50
IV piggybacks 110 / 110 52 / 52
Output:
Liquid stool amount 50 / 50
Colostomy 50 / 50
Drain Output (Total) 20 / 20
Right Sacrum Rodolfo-Johnson 20 / 20
Urine, Gabriel 950 / 950 900 / 900 300 / 300
Vital Signs
Temp Pulse Resp BP Pulse Ox
99.0 F 77 16 138/60 96
12/29/23 07:09 12/29/23 07:09 12/29/23 07:09 12/29/23 08:53 12/29/23 08:00
Lab Results
12/28/23 05:32
12/28/23 05:31
Calcium 9.2 mg/dl (8.4-10.2) 12/28/23 05:31
Physical Exam
-
Buttocks: Flap is opened at the superior aspect but the skin looks much healthier. Packed with gauze wet-to-dry and covered with a sacral pad dressing.
--- NOTE | 2023-12-29 10:43 | CM ---
Addendum entered by Jada Broussard RN 12/29/23 10:45:
IMM reviewed and placed on the chart.
Original Note:
Reviewed the chart notes and spoke with the patient and her spouse at the bedside.
Plan: Discharge to home with resumption of [facility] services.
Fax report to: [phone]
Medical necessity and transport forms on the chart.
[2023-12-29 11:39] VITALS: BP 123/56
== END 2023-12-29 13:44 | disposition home health service (06) | DRG 575 ==
LOC: 2 SOUTH 10:18
PROVIDERS: ADMITTING PHYSICIAN Surgery
PROC: 0JB70ZZ Excision of Back Subcutaneous Tissue and Fascia, Open Approach (ICD-10-PCS; 2023-12-27)
PROC: 0HX8XZZ Transfer Buttock Skin, External Approach (ICD-10-PCS; 2023-12-27)
DX: L89.159 Pressure ulcer of sacral region, unspecified stage (principal); I10 Essential (primary) hypertension; M62.50 Muscle wasting and atrophy, not elsewhere classified, unspecified site; R13.12 Dysphagia, oropharyngeal phase; R26.2 Difficulty in walking, not elsewhere classified; R33.9 Retention of urine, unspecified; F32.A Depression, unspecified; Z93.3 Colostomy status; Z87.891 Personal history of nicotine dependence; Z79.82 Long term (current) use of aspirin; Z79.01 Long term (current) use of anticoagulants
CPT/HCPCS: 88304; 80048; 85025; 86850; 86900; 86901; 93005

== ENCOUNTER 2024-01-22 15:28 | Emergency (ER) | payer OTHER, SELFPAY ==
[2024-01-22] VITALS (7 sets, daily range): BP systolic 124–145; BP diastolic 61–74; BMI 20.2
[2024-01-22 15:57] LABS: % Basophils 0.6 % (0-2); % Immature Granulocytes 0.4 % (0-0.5); % Monocytes 8.3 % (1.7-9.3); % Neutrophils 69.7 % (42.2-75.2); Absolute Basophils 0.1 10^3/uL (0-0.2); Absolute Eosinophils 0.5 10^3/uL (0-0.7); Absolute Immature Granulocytes 0.1 10^3/uL (0-0.05); Absolute Neutrophils 8.1 10^3/uL (1.4-6.5); Hematocrit 31.7 % (37.0-47.0); Hemoglobin 10.1 g/dL (12.0-16.0); Mean Corp Hgb Conc. 31.9 g/dL (33.0-37.0); Mean Corpuscular Hgb 24.6 pg (27.0-31.0); Mean Corpuscular Volume 77.1 fL (81.0-99.0); Mean Platelet Volume 8.8 fL (7.4-10.4); Nucleated Red Blood Cells % 0 %; Platelet Count 440 10^3/uL (130-400); Red Blood Cell Count 4.11 10^6/uL (4.20-5.40); Red Cell Dist. Width 20.2 % (11.5-14.5); White Blood Cell Count 11.6 10^3/uL (4.8-10.8)
[2024-01-22 16:06] LABS: ALT (SGPT) 44 U/L (0-35); AST (SGOT) 30 U/L (14-36); Albumin 3.5 g/dl (3.5-5.0); Alkaline Phosphatase 74 U/L (38-126); Blood Urea Nitrogen 18 mg/dl (7-17); Calcium 8.4 mg/dl (8.4-10.2); Carbon Dioxide 23 mmol/L (22-30); Chloride 106 mmol/L (98-107); Glucose 83 mg/dl (70-99); Lipase 535 U/L (23-300); Potassium 4.2 mmol/L (3.5-5.1); Sodium 140 mmol/L (135-145); Total Bilirubin 0.2 mg/dl (0.2-1.3); Total Protein 6.6 g/dl (6.3-8.2); eGFR > 60.00
[2024-01-22 16:07] LABS: Lactic Acid 2.2 mmol/L (0.7-2.0)
--- NOTE | 2024-01-22 19:41 | ED.GENMED ---
History of Present Illness
General
Chief Complaint: Abdominal Pain
Time Seen by Provider: 01/22/24 19:27
History of Present Illness
History of Present Illness:
Patient is a 68-year-old female with a history of CVA and paraplegia who presents to the emergency department with abdominal pain. She has a colostomy and has been notes that there is a small amount of bleeding around the edges of this earlier
today. When he was changing it she was complaining of some abdominal discomfort and he noticed that her abdomen felt right. This is why to present to the department. She denies any vomiting. Complains of mild diffuse abdominal pain.
Past History
Past History
ED Past Medical History: CVA, HTN, Hypercholesterolemia, Seizures, Other (Stage IV sacral decub, hypokalemia, diverting colostomy August 08, 2023) and Other (Urinary retention, UTI/pyelonephritis with urosepsis, indwelling Gabriel catheter; PE)
ED Past Surgical History: Other (Diverting colostomy August 08, 2023 due to fecal incontinence and sacral decubitus.)
Social History
Tobacco: Non-smoker
Alcohol: None
Personal:
Living: with family (Has transition from halfway to home September 30, 2023.)
Family History
Family History: Other (Noncontributory)
Phy Exam
Physical Exam
Physical Exam:
GENERAL APPEARANCE: Chronically ill-appearing, paraplegic
EYES lids/conjunctiva normal
EARS/NOSE/THROAT Mucous membranes moist, uvula midline without oral pharyngeal erythema, exudate or swelling
HEAD/NECK normocephalic atraumatic, neck is supple.
RESPIRATORY respiratory effort normal, speaks in full sentences, no accessory muscle use. Lungs clear to auscultation without rhonchi, wheezes, rales
CARDIAC Regular rate and rhythm, no edema.
ABDOMINAL colostomy noted, no bleeding, stoma is pink and well-perfused. There is mild diffuse tenderness. Abdomen is soft without peritoneal signs.
BACK chronic sacral wound, clean edges, no induration or erythema, no purulence
SKIN Warm, pink and dry. No rashes
NEUROLOGICAL Speech is clear and appropriate. Normal level of consciousness.
Course
Orders/Labs/Results
Orders:
Orders
01/22/24 15:47
Complete Blood Count/With Diff Urgent
Comprehensive Metabolic Panel Urgent
Lactic Acid Urgent
Lipase Urgent
01/22/24 19:39
CT Abd/Pel (IV only)-DH only Urgent
Comment:
Reason For Exam: pancreatitis, abdominal pain
01/22/24 19:40
0.9% Sodium Chloride 500 ml [Nss] 500 ml IV BOLUS
01/22/24 19:54
Urinalysis Reflex To Culture Urgent
Date Specimen was Collected: 01/22/24
Time Specimen was Collected: 19:53
Urine Microscopic Reflex Cult Urgent
Urine Culture Urgent
ASH Source: U
Specimen Description:
Date Specimen was Collected: 01/22/24
Time Specimen was Collected: 19:53
01/22/24 21:53
CefTRIAXone [Rocephin] 1,000 mg IV NOW STA
Abnormal Lab Results
01/22/24 01/22/24
15:47 19:54
WBC 11.6 H 10^3/uL
(4.8-10.8)
RBC 4.11 L 10^6/uL
(4.20-5.40)
Hgb 10.1 L g/dL
(12.0-16.0)
Hct 31.7 L %
(37.0-47.0)
MCV 77.1 L fL
(81.0-99.0)
MCH 24.6 L pg
(27.0-31.0)
MCHC 31.9 L g/dL
(33.0-37.0)
RDW 20.2 H %
(11.5-14.5)
Plt Count 440 H 10^3/uL
(130-400)
Abs Immat Gran (auto) 0.1 H 10^3/uL
(0-0.05)
Absolute Neuts (auto) 8.1 H 10^3/uL
(1.4-6.5)
Absolute Monos (auto) 1.0 H 10^3/uL
(0.1-0.6)
Lymphocytes % 17.0 L %
(20.5-51.1)
BUN 18 H mg/dl
(7-17)
Creatinine 0.5 L mg/dL
(0.6-1.0)
Lactic Acid 2.2 H mmol/L
(0.7-2.0)
ALT 44 H U/L
(0-35)
Lipase 535 H U/L
(23-300)
Ur Occult Blood Reflex Trace A
(Negative)
Urine Nitrite (Reflex) Positive A
(Negative)
Leukocyte Esterase Rfl 2+ A
(Negative)
Urine WBC (Reflex) >100 A /HPF
(0-5)
Urine Bacteria (Reflex) Many A
(Negative)
01/22/24 15:47
01/22/24 15:47
Vital Signs
Initial and Last Documented VS:
Initial Vital Signs
Temp Pulse Resp BP Pulse Ox
98.4 F 73 18 139/73 99
01/22/24 15:32 01/22/24 15:32 01/22/24 15:32 01/22/24 15:32 01/22/24 15:32
Last Documented Vital Signs
Temp Pulse Resp BP Pulse Ox
98.4 F 74 18 136/74 98
01/22/24 15:32 01/22/24 21:00 01/22/24 21:00 01/22/24 21:00 01/22/24 21:00
*Critical Care Note
Total Time (30-74mins, 75-104mins- exclusive of procedures): Not Applicable
ED Attending Note
ED Attending Note
ED Attending Note:
Patient presents to the emergency department with bleeding to the edge of her stoma. She has pain in that region slightly but is overall at her baseline. She is afebrile. S workup notable for possible UTI. Patient has chronic indwelling Gabriel
catheter, CT abdomen shows possible abscess of the skin around the stoma. I aspirated this region and found only small amount of blood likely a small hematoma. Patient's lipase found to be elevated though not at the threshold of pancreatitis.
Patient without signs or symptoms consistent with pancreatitis. 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 Will treat for urinary tract infection, I offered patient admission given her
chronic comorbidities however she is feeling well and would like to go home. Strict return precautions for worsening symptoms and/or fever to the emergency department. Shared decision making with patient and her who both would like to go
home and are comfortable with plan
-
Portions of this chart may have been created with voice recognition software.� Occasional wrong word or��sound alike� substitutions may have occurred due to the inherent limitations of voice recognition software.
Discharge Plan
Departure
Patient Disposition: Home (Routine Discharge)
Date of Disposition: 01/22/24
Time of Disposition: 21:54
Patient with high blood pressure during this ER visit?: Yes
Discharge Problem:
Urinary tract infection, Stoma bleed
Instructions: How to Care for Your Ostomy, Adult
Prescriptions:
New
cefdinir 300 mg capsule
300 mg PO BID Qty: 14 0RF
No Action
multivitamin Tablet
1 tab PO DAILY
fluoxetine 40 mg Capsule
40 mg PO DAILY
atorvastatin 80 mg Tablet
80 mg PO DAILY
amlodipine 5 mg Tablet
5 mg PO DAILY
hydroxychloroquine 200 mg Tablet
200 mg PO BID
levetiracetam [Keppra] 100 mg/mL Solution
500 mg PO BID
Eliquis 5 mg Tablet
5 mg PO BID
aspirin 81 mg Capsule
81 mg PO DAILY
oxycodone 5 mg tablet
5 mg PO Q6HPRN PRN (Reason: breakthrough/severe pain) Qty: 8 0RF
clindamycin HCl 300 mg capsule
300 mg PO BID Qty: 4 0RF
baclofen 5 mg Tablet
2.5 mg PO TID Qty: 60 0RF
potassium chloride 20 mEq tablet,ER particles/crystals
20 meq PO DAILY
Referrals:
Gerri Stovall PA-C [Family Provider] -
Interventions
Interventions:
*General Assessment Last Done: 01/22/24 15:32
*Neglect/Abuse Screening Last Done: 01/22/24 18:28
ED- Fall Risk Assessment Last Done: 01/22/24 18:35
*ED COVID-19 Vaccine History Last Done: 01/22/24 18:28
ZB-Jrebak-Vfinxcgzhw Assessment Last Done: 01/22/24 18:29
Discharge Date and Time
Print Language: PRYDEINIG
[2024-01-22] MEDS: NSS 500 IV (19:56)
[2024-01-22 20:24] LABS: Urine Albumin Trace (Neg - Trace); Urine Bilirubin Negative (Negative); Urine Character Slightly Cloudy (Clear); Urine Color Yellow; Urine Glucose Negative (Negative); Urine Ketone Negative (Negative); Urine Leukocyte 2+ (Negative); Urine Nitrite Positive (Negative); Urine Occult Blood Trace (Negative); Urine Urobilinogen Negative (Neg - 1+)
[2024-01-22 20:50] LABS: Urine Red Blood Cell 0-2 /HPF (0-2); Urine Squamous Cell 0-2 /LPF (Few)
[2024-01-22 20:51] LABS: Urine Bacteria Many (Negative); Urine White Cell >100 /HPF (0-5)
[2024-01-22] MEDS: ROCEPHIN 1000 MG IV (22:13)
== END 2024-01-22 22:40 | disposition home or self-care (01) ==
LOC: EMR 15:28
PROVIDERS: EMERGENCY PHYSICIAN Emergency Medicine; FAMILY PHYSICIAN Physician Assistant
DX: N39.0 Urinary tract infection, site not specified (principal); K94.01 Colostomy hemorrhage; E78.00 Pure hypercholesterolemia, unspecified; G82.20 Paraplegia, unspecified; I10 Essential (primary) hypertension; Z87.440 Personal history of urinary (tract) infections; Z86.73 Personal history of transient ischemic attack (TIA), and cerebral infarction without residual deficits
CPT/HCPCS: 99284; 96374; 96361; 74177; 80053; 81003; 81015; 83605; 83690; 85025; 87086; Q9967

== ENCOUNTER 2024-05-21 12:12 | Outpatient (RCR) | payer OTHER, SELFPAY | END 2024-05-21 23:59 | disposition home or self-care (01) | LOC: RPT 12:12 | PROVIDERS: ATTENDING PHYSICIAN Surgery; FAMILY PHYSICIAN Podiatrist Foot & Ankle Surgery | DX: I69.393 Ataxia following cerebral infarction (principal); I69.398 Other sequelae of cerebral infarction; M62.81 Muscle weakness (generalized); I63.9 Cerebral infarction, unspecified; Z73.6 Limitation of activities due to disability | CPT/HCPCS: 97112; 97140; 97163; 97530 ==

== ENCOUNTER 2024-06-18 11:41 | Outpatient (RCR) | payer OTHER, SELFPAY | END 2024-06-18 23:59 | disposition home or self-care (01) | LOC: RPT 11:41 | PROVIDERS: ATTENDING PHYSICIAN Surgery; FAMILY PHYSICIAN Podiatrist Foot & Ankle Surgery | DX: I69.393 Ataxia following cerebral infarction (principal); I69.398 Other sequelae of cerebral infarction; M62.81 Muscle weakness (generalized); R26.9 Unspecified abnormalities of gait and mobility; I63.9 Cerebral infarction, unspecified; Z73.6 Limitation of activities due to disability | CPT/HCPCS: 97110; 97112; 97140; 97530 ==

== ENCOUNTER 2024-07-13 10:36 | Outpatient (RCR) | payer OTHER, SELFPAY | END 2024-07-13 23:59 | disposition home or self-care (01) | LOC: ROT 10:36 | PROVIDERS: ATTENDING PHYSICIAN Surgery; FAMILY PHYSICIAN Podiatrist Foot & Ankle Surgery | DX: I69.393 Ataxia following cerebral infarction (principal); I69.398 Other sequelae of cerebral infarction; M62.81 Muscle weakness (generalized); Z73.6 Limitation of activities due to disability; R26.9 Unspecified abnormalities of gait and mobility; R26.89 Other abnormalities of gait and mobility | CPT/HCPCS: 97010; 97110; 97112; 97140; 97167; 97530; 97535 ==

== ENCOUNTER 2024-09-21 23:31 | Emergency (ER) | payer OTHER, SELFPAY ==
[2024-09-21 23:39] VITALS: BP 116/64
[2024-09-22 01:14] VITALS: BP 128/62
[2024-09-22 01:40] LABS: Hematocrit 36.3 % (37.0-47.0); Hemoglobin 11.8 g/dL (12.0-16.0); Mean Corp Hgb Conc. 32.5 g/dL (33.0-37.0); Mean Corpuscular Volume 74.5 fL (81.0-99.0); Platelet Count 376 10^3/uL (130-400); Red Cell Dist. Width 20.4 % (11.5-14.5)
[2024-09-22 01:56] LABS: Blood Urea Nitrogen 16 mg/dl (7-17); Calcium 8.9 mg/dl (8.4-10.2); Carbon Dioxide 22 mmol/L (22-30); Chloride 111 mmol/L (98-107); Glucose 104 mg/dl (70-99); Potassium 4.4 mmol/L (3.5-5.1); Sodium 141 mmol/L (135-145); eGFR > 60.00
[2024-09-22 02:09] LABS: Urine Character Cloudy (Clear)
[2024-09-22 02:17] LABS: Urine White Cell >100 /HPF (0-5)
[2024-09-22 03:11] VITALS: BP 136/65
--- NOTE | 2024-09-22 03:44 | ED.GENMED ---
History of Present Illness
General
Chief Complaint: Catheter/Tube Problem
Time Seen by Provider: 09/22/24 03:00
History of Present Illness
History of Present Illness:
68-year-old female with history of CVA, history of colostomy and chronic indwelling Gabriel presenting to the emergency department for lower abdominal pain. Patient reports prior to arrival she will with lower abdominal discomfort. When she arrived
to the hospital, symptoms had improved. Currently denying any abdominal discomfort. is at bedside, notes that her Gabriel catheter is usually changed every month, last changed about 2 and half weeks ago. Does have history of UTIs which was
his concern. She notes normal output from her colostomy. Denies any fever, chest pain, difficulty breathing. Does note some leaking around the Gabriel catheter which is not uncommon for her. Denies additional acute medical complaints
Past History
Past History
ED Past Medical History: CVA, HTN, Hypercholesterolemia, Seizures, Other (Stage IV sacral decub, hypokalemia, diverting colostomy August 08, 2023) and Other (Urinary retention, UTI/pyelonephritis with urosepsis, indwelling Gabriel catheter; PE)
ED Past Surgical History: Other (Diverting colostomy August 08, 2023 due to fecal incontinence and sacral decubitus.)
Social History
Tobacco: Non-smoker
Alcohol: None
Personal:
Living: with family (Has transition from [facility] to home September 30, 2023.)
Family History
Family History: Other (Noncontributory)
Phy Exam
Physical Exam
Physical Exam:
General: Well-appearing, no clinical signs of dehydration, nontoxic and in no acute distress
HEENT: protecting airway
Neck: appears supple
CV: Normal heart rate
Resp: No accessory muscle use, no increased work of breathing
Abd: Soft and non-distended, no tenderness to palpation. Normal output from colostomy
Extremities: No deformities, no swelling, no erythema, pulses and sensation intact
Neuro: alert, no focal neurologic deficit
: Indwelling Gabriel
Rectal: deferred
Psych: Normal affect
Skin: Intact
Course
Orders/Labs/Results
Orders:
Orders
09/21/24 23:42
Basic Metabolic Panel Urgent
Complete Blood Count/No Diff Urgent
Urinalysis Urgent
Date Specimen was Collected: 09/21/24
Time Specimen was Collected: 23:42
09/22/24 01:26
Urine Microscopic Urgent
Date Specimen was Collected: 09/21/24
Time Specimen was Collected: 23:42
09/22/24 03:32
Gabriel Placement- Treatment ONCE
Reason for insertion: Chronic Gabriel on Admit
Cephalexin Monohydrate [Keflex] 500 mg PO NOW STA
Abnormal Lab Results
09/22/24
01:26
WBC 12.7 H 10^3/uL
(4.8-10.8)
Hgb 11.8 L g/dL
(12.0-16.0)
Hct 36.3 L %
(37.0-47.0)
MCV 74.5 L fL
(81.0-99.0)
MCH 24.2 L pg
(27.0-31.0)
MCHC 32.5 L g/dL
(33.0-37.0)
RDW 20.4 H %
(11.5-14.5)
Chloride 111 H mmol/L
(98-107)
Creatinine 0.5 L mg/dL
(0.6-1.0)
Glucose 104 H mg/dl
(70-99)
Urine Occult Blood 2+ A
(Negative)
Urine Nitrite Positive A
(Negative)
Ur Leukocyte Esterase 3+ A
(Negative)
Urine RBC 7-10 A /HPF
(0-2)
Urine WBC >100 A /HPF
(0-5)
Urine Bacteria Many A
(Negative)
Urine Albumin 3+ A
(Neg - Trace)
09/22/24 01:26
09/22/24 01:26
Vital Signs
Initial and Last Documented VS:
Initial Vital Signs
Temp Pulse Resp BP Pulse Ox
98.9 F 82 20 116/64 96
09/21/24 23:39 09/21/24 23:39 09/21/24 23:39 09/21/24 23:39 09/21/24 23:39
Last Documented Vital Signs
Temp Pulse Resp BP Pulse Ox
98.1 F 75 18 136/65 96
09/22/24 03:11 09/22/24 03:11 09/22/24 03:11 09/22/24 03:11 09/22/24 03:11
MDM/Problems Addressed
MDM/Problems Addressed:
68-year-old female with history of chronic indwelling catheter and colostomy presenting to the emergency department for lower abdominal pain. Vital signs on arrival are normal.
On exam patient is resting comfortably, no acute distress. Currently denying any abdominal pain. Abdominal exam is unremarkable, no tenderness to the abdomen or pelvis. Normal appearing output from the colostomy. Nurse had noted that there was
some drainage of urine around the Gabriel catheter, however patient notes that this sometimes does happen. Gabriel catheter is appropriately draining, no blockage. There are some sediment in the catheter. Labs obtained prior to my assessment, mild
leukocytosis, otherwise no acute abnormality. Urine however does show signs of infection, unclear if colonization versus acute infection. In the setting of leukocytosis and pain prior to arrival, will start on antibiotic therapy. Cultures
reviewed, pansensitive. Will start on Keflex and change patient's catheter. Otherwise feel stable for discharge. Return precautions discussed and patient and verbalized understanding
*Pulse Oximetry
SaO2: 96
Oxygen Mode of Delivery: Room air
Patient hypoxic: no
*Critical Care Note
Total Time (30-74mins, 75-104mins- exclusive of procedures): Not Applicable
ED Attending Note
-
Portions of this chart may have been created with voice recognition software.� Occasional wrong word or��sound alike� substitutions may have occurred due to the inherent limitations of voice recognition software.
Discharge Plan
Departure
Prescriptions:
No Action
multivitamin Tablet
1 tab PO DAILY
fluoxetine 40 mg Capsule
40 mg PO DAILY
atorvastatin 80 mg Tablet
80 mg PO DAILY
amlodipine 5 mg Tablet
5 mg PO DAILY
hydroxychloroquine 200 mg Tablet
200 mg PO BID
levetiracetam [Keppra] 100 mg/mL Solution
500 mg PO BID
Eliquis 5 mg Tablet
5 mg PO BID
aspirin 81 mg Capsule
81 mg PO DAILY
oxycodone 5 mg tablet
5 mg PO Q6HPRN PRN (Reason: breakthrough/severe pain) Qty: 8 0RF
clindamycin HCl 300 mg capsule
300 mg PO BID Qty: 4 0RF
baclofen 5 mg Tablet
2.5 mg PO TID Qty: 60 0RF
potassium chloride 20 mEq tablet,ER particles/crystals
20 meq PO DAILY
cefdinir 300 mg capsule
300 mg PO BID Qty: 14 0RF
Referrals:
Gerri Stovall PA-C [Family Provider, General]
Interventions
Interventions:
*Risk Screen - Suicide Last Done: 09/21/24 23:39
*General Assessment Last Done: 09/22/24 01:17
*Neglect/Abuse Screening Last Done: 09/21/24 23:39
*ED- Fall Risk Assessment Last Done: 09/22/24 01:17
*ED COVID-19 Vaccine History Last Done: 09/22/24 01:17
KC-Fkktbb-Hsoxenmcjo Assessment Last Done: 09/22/24 01:19
ED-Female Genitourinary Assessment Last Done: 09/22/24 01:19
Discharge Date and Time
Print Language: NEPALI
[2024-09-22] MEDS: KEFLEX 500 MG PO (03:57)
== END 2024-09-22 04:15 | disposition home or self-care (01) ==
LOC: EMR 23:31
PROVIDERS: EMERGENCY PHYSICIAN Student in an Organized Health Care Education/Training Program; FAMILY PHYSICIAN Physician Assistant
DX: R10.30 Lower abdominal pain, unspecified (principal); R56.9 Unspecified convulsions; I10 Essential (primary) hypertension; E78.00 Pure hypercholesterolemia, unspecified; Z93.3 Colostomy status; Z87.440 Personal history of urinary (tract) infections; Z79.82 Long term (current) use of aspirin
CPT/HCPCS: 99284; 51702; 80048; 81003; 81015; 85027

== ENCOUNTER → 2024-11-13 12:34 | Outpatient (REF) | payer OTHER, SELFPAY | LOC: RAD 12:34 | PROVIDERS: ATTENDING PHYSICIAN Surgery; FAMILY PHYSICIAN Physician Assistant | DX: L89.159 Pressure ulcer of sacral region, unspecified stage (principal) | CPT/HCPCS: 72193; Q9967 ==